=== PATIENT | female | born 1950 | race Caucasian/White ===

== ENCOUNTER 2020-11-15 11:28 | Inpatient (IN) ==
[2020-11-15] MEDS ORDERED: SODIUM CHLORIDE 0.9% 1000ML 1,000 ML IV SCH (12:00)
[2020-11-15] MEDS ORDERED: DEXAMETHASONE SOD INJ 10 MG/ML VIAL IV ONE (12:11)
[2020-11-15 12:37] LABS: Basophils # (auto) 0.01 K/uL (0-0.2); Basophils % (auto) 0.2 %; Eosinophils # (auto) 0.01 K/uL (0-0.5); Eosinophils % (auto) 0.2 %; Hematocrit (blood only) 37.8 % (37-47); Hemoglobin 13.2 g/dL (12.0-16.0); Immature Granulocytes # (auto) 0.04 K/uL (0.00-0.02); Immature Granulocytes % (auto) 0.9 %; Lymphocytes % (auto) 16.4 %; Mean Corpuscular Hemoglobin 30.1 pg (25-34); Mean Corpuscular Hgb Conc 34.9 g/dL (32-36); Mean Corpuscular Volume 86.3 fL (80-100); Mean Platelet Volume 11.4 fL (7.4-10.4); Monocytes % (auto) 4.7 %; Neutrophils # (auto) 3.31 K/uL (1.4-6.5); Neutrophils % (auto) 77.6 %; Platelet Count 181 K/uL (130-400); RDW Coefficient of Variation 13.3 % (11.5-14.5); RDW Standard Deviation 42.3 fL (36.4-46.3); Red Blood Count 4.38 M/uL (4.2-5.4); White Blood Count 4.27 K/uL (4.8-10.8)
--- NOTE | 2020-11-15 12:38 | Emergency Department Note ---
History of Present Illness General Chief complaint: Shortness of Breath/Dyspnea Stated complaint: Ref by ; believes she has COVID Time Seen by Provider: 11/15/20 11:42 History of Present Illness Provider complaint: Cough difficulty breathing Onset (ago): day(s) 2 Associated symptoms: + cough, + fever/chills, + nausea/vomiting and + shortness of breath 7-year-old female presents emergency department cough and difficulty breathing. Patient reports her symptoms began 2 days ago. She also reports diarrhea and nausea no vomiting. She reports chills and feeling feverish. She states she went to her doctor's office today who measured her oxygen level and discovered it was in the 80s and referred her to the emergency department. Known COVID-19 exposure or testing. Home Medications Medication Instructions Recorded Confirmed Type cholecalciferol (vitamin D3) 10 mcg PO DAILY 11/15/20 11/15/20 History [Vitamin D3] zinc 10 mg PO DAILY 11/15/20 11/15/20 History Allergies Allergy/AdvReac Type Severity Reaction Status Date / Time No Known Allergies Allergy Unverified 11/15/20 14:09 Past Med/Surg History Social History Smoking Status: Never smoker Feels Safe at Home: Yes Review of Systems A total of 10 systems reviewed and were otherwise negative Physical Exam Vital Signs Vital Signs - 24 hr 11/15/20 11:36 11/15/20 11:56 11/15/20 12:10 Temperature 36.6 C Temperature Source Temporal Artery Scan Pulse Rate 91 H 79 Pulse Rate [Apical] Pulse Rate from SpO2 Sensor 79 Respiratory Rate 26 H 22 Respiratory Effort / Characteristics Respiratory Depth Respiratory Pattern Blood Pressure 172/72 H 147/78 H Blood Pressure [Right Arm] Blood Pressure Mean 105 101 Blood Pressure Mean [Right Arm] Pulse Oximetry 91 86 L 97 Oxygen Delivery Method Room Air Room Air Nasal Cannula Oxygen Flow Rate 2 Sepsis Recent Fever Within 48 Hours No Sepsis New/Unexplained Change in Mental Status No Sepsis Action Taken by Nursing No Action Required 11/15/20 12:15 11/15/20 12:34 11/15/20 13:00 Temperature Temperature Source Pulse Rate 82 81 77 Pulse Rate [Apical] 79 Pulse Rate from SpO2 Sensor 80 77 Respiratory Rate 22 22 22 Respiratory Effort / Characteristics Non-Labored Spontaneous Respiratory Depth Normal Respiratory Pattern Regular Blood Pressure 147/86 H Blood Pressure [Right Arm] 147/78 H Blood Pressure Mean 106 Blood Pressure Mean [Right Arm] 101 Pulse Oximetry 95 96 93 Oxygen Delivery Method Nasal Cannula Nasal Cannula Nasal Cannula Oxygen Flow Rate 2 2 2 Sepsis Recent Fever Within 48 Hours Sepsis New/Unexplained Change in Mental Status Sepsis Action Taken by Nursing 11/15/20 13:01 11/15/20 13:30 11/15/20 14:02 Temperature Temperature Source Pulse Rate 76 75 88 Pulse Rate [Apical] Pulse Rate from SpO2 Sensor 76 75 87 Respiratory Rate 22 19 29 H Respiratory Effort / Characteristics Respiratory Depth Respiratory Pattern Blood Pressure Blood Pressure [Right Arm] Blood Pressure Mean Blood Pressure Mean [Right Arm] Pulse Oximetry 92 95 79 L Oxygen Delivery Method Nasal Cannula Nasal Cannula Room Air Oxygen Flow Rate 2 2 Sepsis Recent Fever Within 48 Hours Sepsis New/Unexplained Change in Mental Status Sepsis Action Taken by Nursing Physical Exam GENERAL: She is oriented to person, place, and time. She appears well-developed and well-nourished. She does not appear distressed. HENT: Exam performed. -Head: Normocephalic and atraumatic. -Right Ear: External ear normal. No mastoid tenderness. -Left Ear: External ear normal. No mastoid tenderness. -Mouth/Throat: The oropharynx is clear and moist. No trismus in the jaw. No dental abscesses or uvula swelling. No oropharyngeal exudate or tonsillar abscesses. EYES: Conjunctivae and EOM are normal. Pupils are equal, round, and reactive to light. Right eye exhibits no discharge. Left eye exhibits no discharge. No scleral icterus. NECK: Normal range of motion. Neck supple. No JVD present. No spinous process tenderness present. No carotid bruit present. No rigidity. No tracheal deviation and normal range of motion present. No Brudzinski's sign and no Kernig's sign noted. CV: Normal rate, regular rhythm, normal heart sounds and intact distal pulses. There is no peripheral edema. Palpable radial pulses bue. PULM/CHEST: Effort normal and breath sounds normal. No respiratory distress. No stridor. She has no wheezes. She has no rales. -Chest Wall: She exhibits no tenderness. ABD: The abdomen is soft. Bowel sounds are normal. She has no distension. No mass is present. There is no tenderness. There is no rebound, no guarding, no Moreira's sign and no tenderness at McBurney's point. Rovsig negative MUSC/SKEL: Normal range of motion. There is no peripheral edema, tenderness or deformity. LYMPH: No cervical adenopathy. NEURO: She is alert and oriented to person, place, and time. She has normal strength. No cranial nerve deficit or sensory deficit. Coordination and gait normal. GCS eye subscore is 4. GCS verbal subscore is 5. GCS motor subscore is 6. Cerebellar tests wnl. SKIN: Skin is warm and dry. She is not diaphoretic. PSYCH: She has a normal mood and affect. Behavior is normal. Judgment and thought content normal. Course Course 1142: The patient was evaluated in room C8. A complete history and physical exam was performed. Patient was seen in full airborne precautions. Patient was seen in N95's, rober ves, gowns, face shield by myself and staff. Patient was placed on cardiac cath technologist and continuous pulse ox. Patient was found to be hypoxic on 86% on room air. Patient was started on supplemental ox ygen 2 L via nasal cannula which improved her oxygen saturation. Cardiac monitoring: An order was placed for continuous cardiac monitoring. The monitor shows a rate of 80 with sinus rhythm 1436: No signs stable on supplemental continuous oxygen. Labs within normal limits with exception of potassium 3.3. Replaced in the emergency department. Imaging shows multifocal groundglass pneumonia, no PE. Patient Covid positive. Patient was given Decadron 6 mg. Patient got up to use the restroom and became extremely winded tach, tachypnea, and her pulse ox dropped, [facility]. Administered Medications Discontinued Medications Dexamethasone (Dexamethasone Sod Inj 10 Mg/Ml Vial) 6 mg IV NOW ONE Stop: 11/15/20 12:12 Last Admin: 11/15/20 12:20 Dose: 6 mg Documented by: [id number] Sodium Chloride (Nss 1000ml) 1,000 mls @ 999 mls/hr IV .Q1H1M ENA Stop: 11/15/20 13:00 Last Infusion: 11/15/20 13:25 Dose: 0 mls/hr Documented by: [id number] Admin: 11/15/20 12:20 Dose: 999 mls/hr Documented by: [id number] Ioversol (Optiray 320 125ml) 120 ml IV ONCE ONE Stop: 11/15/20 14:16 Last Admin: 11/15/20 14:16 Dose: 120 ml Documented by: [id number] Medical Decision Making Laboratory Data Result diagrams: 11/15/20 12:19 11/15/20 12:19 Lab Results 11/15/20 11/15/20 11/15/20 Range/Units 12:19 12:19 12:19 WBC 4.27 L (4.8-10.8) K/uL RBC 4.38 (4.2-5.4) M/uL Hgb 13.2 (12.0-16.0) g/dL Hct 37.8 (37-47) % MCV 86.3 (80-100) fL MCH 30.1 (25-34) pg MCHC 34.9 (32-36) g/dL RDW Std Deviation 42.3 (36.4-46.3) fL RDW Coeff of Vicenta 13.3 (11.5-14.5) % Plt Count 181 (130-400) K/uL MPV 11.4 H (7.4-10.4) fL Immature Gran % (Auto) 0.9 % Neut % (Auto) 77.6 % Lymph % (Auto) 16.4 % Wirt % (Auto) 4.7 % Eos % (Auto) 0.2 % Baso % (Auto) 0.2 % Neut # (Auto) 3.31 (1.4-6.5) K/uL Lymph # (Auto) 0.70 L (1.2-3.4) K/uL Wirt # (Auto) 0.20 (0.11-0.59) K/uL Eos # (Auto) 0.01 (0-0.5) K/uL Baso # (Auto) 0.01 (0-0.2) K/uL Immature Gran # (Auto) 0.04 H (0.00-0.02) K/uL PT 10.5 (9.0-12.0) Seconds INR 1.0 (0.9-1.1) APTT 29.4 (21.0-31.0) Seconds PTT Ratio 1.1 D-Dimer 980 H* (0-500) ug/L FEU VBG pH (7.36-7.41) VBG pCO2 (38-50) mmHg VBG pO2 mmHg VBG HCO3 mmol/L VBG O2 Saturation % VBG Base Excess mEq/L Barometric Pressure mm/Hg Sodium 139 (136-145) mmol/L Potassium 3.3 L (3.5-5.1) mmol/L Chloride 107 (98-107) mmol/L Carbon Dioxide 22 (21-32) mmol/L Anion Gap 9.0 (3-11) BUN 13 (7-18) mg/dl Creatinine 0.71 (0.6-1.2) mg/dl Est Cr Clr Drug Dosing 79.4 ml/min Est GFR ( Amer) 100.0 Est GFR (Non-Af Amer) 86.3 BUN/Creatinine Ratio 18.1 (10-20) Glucose 151 H (70-99) mg/dl Lactate (0.4-2.0) mmol/L Calcium 8.6 (8.5-10.1) mg/dl Magnesium 1.8 (1.8-2.4) mg/dl Total Bilirubin 0.7 (0.2-1) mg/dl AST 47 H (15-37) U/L ALT 69 (12-78) U/L Alkaline Phosphatase 72 (45-117) U/L Troponin I < 0.015 (0-0.045) ng/ml Total Protein 7.2 (6.4-8.2) gm/dl Albumin 3.2 L (3.4-5.0) gm/dl Globulin 4.0 (2.5-4.0) gm/dl Albumin/Globulin Ratio 0.8 L (0.9-2) Procalcitonin (0-0.5) ng/ml Urine Color Urine Appearance (Clear) Urine pH (4.5-7.5) Ur Specific [place] (1.000-1.030) Urine Protein (Negative) Urine Glucose (UA) (Negative) Urine Ketones (Negative) Urine Blood (Negative) Urine Nitrite (Negative) Urine Bilirubin (Negative) Urine Urobilinogen (Negative) Ur Leukocyte Esterase (Negative) Urine WBC (Auto) (0-5) /hpf Urine RBC (Auto) (0-4) /hpf U Hyaline Cast (Auto) (0-5) /lpf U Epithel Cells (Auto) (0-5) /lpf Urine Bacteria (Auto) (Negative) Ur Renal Epithelial Cell (0-5) /lpf COVID-19 Eval Order SARS-CoV-2 (PCR) (Negative) Influenza Type A (PCR) (Neg) Influenza Type B (PCR) (Neg) RSV (RT-PCR) (Neg) 11/15/20 11/15/20 11/15/20 Range/Units 12:19 12:19 12:19 WBC (4.8-10.8) K/uL RBC (4.2-5.4) M/uL Hgb (12.0-16.0) g/dL Hct (37-47) % MCV (80-100) fL MCH (25-34) pg MCHC (32-36) g/dL RDW Std Deviation (36.4-46.3) fL RDW Coeff of Vicenta (11.5-14.5) % Plt Count (130-400) K/uL MPV (7.4-10.4) fL Immature Gran % (Auto) % Neut % (Auto) % Lymph % (Auto) % Wirt % (Auto) % Eos % (Auto) % Baso % (Auto) % Neut # (Auto) (1.4-6.5) K/uL Lymph # (Auto) (1.2-3.4) K/uL Wirt # (Auto) (0.11-0.59) K/uL Eos # (Auto) (0-0.5) K/uL Baso # (Auto) (0-0.2) K/uL Immature Gran # (Auto) (0.00-0.02) K/uL PT (9.0-12.0) Seconds INR (0.9-1.1) APTT (21.0-31.0) Seconds PTT Ratio D-Dimer (0-500) ug/L FEU VBG pH (7.36-7.41) VBG pCO2 (38-50) mmHg VBG pO2 mmHg VBG HCO3 mmol/L VBG O2 Saturation % VBG Base Excess mEq/L Barometric Pressure mm/Hg Sodium (136-145) mmol/L Potassium (3.5-5.1) mmol/L Chloride (98-107) mmol/L Carbon Dioxide (21-32) mmol/L Anion Gap (3-11) BUN (7-18) mg/dl Creatinine (0.6-1.2) mg/dl Est Cr Clr Drug Dosing ml/min Est GFR ( Amer) Est GFR (Non-Af Amer) BUN/Creatinine Ratio (10-20) Glucose (70-99) mg/dl Lactate 1.6 (0.4-2.0) mmol/L Calcium (8.5-10.1) mg/dl Magnesium (1.8-2.4) mg/dl Total Bilirubin (0.2-1) mg/dl AST (15-37) U/L ALT (12-78) U/L Alkaline Phosphatase (45-117) U/L Troponin I (0-0.045) ng/ml Total Protein (6.4-8.2) gm/dl Albumin (3.4-5.0) gm/dl Globulin (2.5-4.0) gm/dl Albumin/Globulin Ratio (0.9-2) Procalcitonin 0.06 (0-0.5) ng/ml Urine Color Urine Appearance (Clear) Urine pH (4.5-7.5) Ur Specific [place] (1.000-1.030) Urine Protein (Negative) Urine Glucose (UA) (Negative) Urine Ketones (Negative) Urine Blood (Negative) Urine Nitrite (Negative) Urine Bilirubin (Negative) Urine Urobilinogen (Negative) Ur Leukocyte Esterase (Negative) Urine WBC (Auto) (0-5) /hpf Urine RBC (Auto) (0-4) /hpf U Hyaline Cast (Auto) (0-5) /lpf U Epithel Cells (Auto) (0-5) /lpf Urine Bacteria (Auto) (Negative) Ur Renal Epithelial Cell (0-5) /lpf COVID-19 Eval Order [facility]Rsv at [facility] SARS-CoV-2 (PCR) (Negative) Influenza Type A (PCR) (Neg) Influenza Type B (PCR) (Neg) RSV (RT-PCR) (Neg) 11/15/20 11/15/20 11/15/20 Range/Units 12:19 12:36 14:10 WBC (4.8-10.8) K/uL RBC (4.2-5.4) M/uL Hgb (12.0-16.0) g/dL Hct (37-47) % MCV (80-100) fL MCH (25-34) pg MCHC (32-36) g/dL RDW Std Deviation (36.4-46.3) fL RDW Coeff of Vicenta (11.5-14.5) % Plt Count (130-400) K/uL MPV (7.4-10.4) fL Immature Gran % (Auto) % Neut % (Auto) % Lymph % (Auto) % Wirt % (Auto) % Eos % (Auto) % Baso % (Auto) % Neut # (Auto) (1.4-6.5) K/uL Lymph # (Auto) (1.2-3.4) K/uL Wirt # (Auto) (0.11-0.59) K/uL Eos # (Auto) (0-0.5) K/uL Baso # (Auto) (0-0.2) K/uL Immature Gran # (Auto) (0.00-0.02) K/uL PT (9.0-12.0) Seconds INR (0.9-1.1) APTT (21.0-31.0) Seconds PTT Ratio D-Dimer (0-500) ug/L FEU VBG pH 7.41 (7.36-7.41) VBG pCO2 39 (38-50) mmHg VBG pO2 26 mmHg VBG HCO3 24 mmol/L VBG O2 Saturation < 60.0 % VBG Base Excess -0.4 mEq/L Barometric Pressure 731.7 mm/Hg Sodium (136-145) mmol/L Potassium (3.5-5.1) mmol/L Chloride (98-107) mmol/L Carbon Dioxide (21-32) mmol/L Anion Gap (3-11) BUN (7-18) mg/dl Creatinine (0.6-1.2) mg/dl Est Cr Clr Drug Dosing ml/min Est GFR ( Amer) Est GFR (Non-Af Amer) BUN/Creatinine Ratio (10-20) Glucose (70-99) mg/dl Lactate (0.4-2.0) mmol/L Calcium (8.5-10.1) mg/dl Magnesium (1.8-2.4) mg/dl Total Bilirubin (0.2-1) mg/dl AST (15-37) U/L ALT (12-78) U/L Alkaline Phosphatase (45-117) U/L Troponin I (0-0.045) ng/ml Total Protein (6.4-8.2) gm/dl Albumin (3.4-5.0) gm/dl Globulin (2.5-4.0) gm/dl Albumin/Globulin Ratio (0.9-2) Procalcitonin (0-0.5) ng/ml Urine Color Yellow Urine Appearance Clear (Clear) Urine pH 7.0 (4.5-7.5) Ur Specific [place] 1.023 (1.000-1.030) Urine Protein 1+ H (Negative) Urine Glucose (UA) Negative (Negative) Urine Ketones 2+ H (Negative) Urine Blood Negative (Negative) Urine Nitrite Negative (Negative) Urine Bilirubin Negative (Negative) Urine Urobilinogen Negative (Negative) Ur Leukocyte Esterase Trace H (Negative) Urine WBC (Auto) 1-5 (0-5) /hpf Urine RBC (Auto) 0-4 (0-4) /hpf U Hyaline Cast (Auto) 1-5 (0-5) /lpf U Epithel Cells (Auto) >30 H (0-5) /lpf Urine Bacteria (Auto) Negative (Negative) Ur Renal Epithelial Cell 5-10 H (0-5) /lpf COVID-19 Eval Order SARS-CoV-2 (PCR) POSITIVE A* (Negative) Influenza Type A (PCR) Negative (Neg) Influenza Type B (PCR) Negative (Neg) RSV (RT-PCR) Negative (Neg) Imaging Data Radiologist's Impression: XR chest 1V portable CLINICAL HISTORY: SEPSIS COMPARISON STUDY: No previous studies for comparison. FINDINGS: The heart is normal in size. There are bilateral pulmonary airspace opacities suspicious for a multifocal pneumonia. There are no significant pleural effusions.[ IMPRESSION: Multifocal airspace opacity suspicious for a multifocal pneumonia. Clinical and radiographic follow-up is recommended. ACT 112: Negative or not required by law. Electronically signed by: Denzel Waldron M.D. 11/15/2020 1:11 PM Dictated: 11/15/20 1310 Transcribed: 11/15/[address] ANGIOGRAM OF THE CHEST CLINICAL HISTORY: Cough and dyspnea. COMPARISON STUDY: Chest x-ray dated 11/15/2020. TECHNIQUE: Following the IV administration of 120 cc of Optiray 320, CT angiogram of the chest was performed from the upper abdomen to the thoracic inlet utilizing the pulmonary embolus protocol. Images are reviewed in the axi al, sagittal, and coronal planes. 3-D MIPS images are created and assessed. IV contrast was administered without complication. A dose lowering technique was utilized adhering to the principles of ALARA. The examination is modestly degraded by motion artifact. CT DOSE: 491.56 mGycm FINDINGS: Thyroid: Imaged portions of the thyroid gland are normal in size and attenuation. Thoracic aorta: The thoracic aorta is normal in caliber and demonstrates standard 3-vessel arch anatomy. No dissection is seen. Pulmonary vasculature: The pulmonary trunk is normal in caliber. There are no filling defects identified in main, lobar, or segmental pulmonary branches to suggest pulmonary embolus. Heart: The heart is top normal in size and without pericardial effusion. Lungs and pleural spaces: Multifocal groundglass consolidation is seen throughout both lungs. The trachea and central airways are clear. Mild peribronchial thickening is observed. No pleural effusion is identified. Mediastinum: Mildly enlarged mediastinal lymph nodes measure up to 12 mm in length. Yolette: Mildly enlarged hilar nodes measure up to 11 mm in short axis. Axillae: There is no axillary lymphadenopathy. Upper abdomen: There is a small hiatal hernia. The liver is steatotic. A 3 cm round hyperdense focus is present within the medial right lobe, best seen on image #19 of 96. Skeletal structures: The skeletal structures are osteopenic. Degenerative change is seen throughout the thoracic spine. No lytic or blastic bony lesions are seen. IMPRESSION: 1. There is no evidence of pulmonary embolus in the main, lobar, or segmental pulmonary arteries. 2. Extensive/diffuse groundglass consolidation is seen throughout both lungs. The appearance is typical for an infectious pneumonitis. Clinical correlation will be required and radiographic follow-up to resolution is recommended. 3. Mildly enlarged mediastinal and hilar lymph nodes are likely reactive. 4. Hepatic steatosis. 5. There is a 3 cm hyperdense focus identified within the medial liver adjacent to the IVC. This is nonspecific and may represent geographic fatty sparing. Follow-up with a nonemergent abdominal MRI of the liver is recommended for furth er characterization and to exclude the possibility of underlying hepatic lesion. 6. Additional findings as above. ACT 112: Negative or not required by law. Electronically signed by: Antoni Gerardo M.D. 11/15/2020 2:32 PM ECG Data Indication: + SOB/dyspnea Rate (beats per minute): 76 Rhythm: + normal sinus ECG Intervals/blocks: + Normal QRS, + Normal MT and + Normal QT-c ECG ST segments: + Normal ST segments ECG Findings: + [facility] Narrative 1142: The patient was evaluated in room C8. A complete history and physical exam was performed. Patient was seen in full airborne precautions. Patient was seen in N95's, gloves, gowns, face shield by myself and staff. Patient was placed on cardiac cath technologist and continuous pulse ox. Patient was found to be hypoxic on 86% on room air. Patient was started on supplemental oxygen 2 L via nasal cannula which improved her oxygen saturation. Cardiac monitoring: An order was placed for continuous cardiac monitoring. The monitor shows a rate of 80 with sinus rhythm 1436: No signs stable on supplemental continuous oxygen. Labs within normal limits with exception of potassium 3.3. Replaced in the emergency department. Imaging shows multifocal groundglass pneumonia, no PE. Patient Covid positive. Patient was given Decadron 6 mg. Patient got up to use the restroom and became extremely winded tach, tachypnea, and her pulse ox dropped, [facility]. Impression & Plan Hypoxia, Pneumonia due to 2019 novel coronavirus Discharge Plan Visit Data Chief Complaint: Shortness of Breath/Dyspnea Stated Complaint: Ref by ; believes she has COVID ED Provider: Karson Mack Discharge Problem: Hypoxia, Pneumonia due to 2019 novel coronavirus Patient Disposition: Admitted As Inpatient Discharge Instructions Ken/Other Patient Handouts: 2019-nCoV Forms Stand Alone Forms: My [employer] Prescriptions Prescriptions: No Action zinc 10 mg Tablet 10 mg PO DAILY RF: 0 cholecalciferol (vitamin D3) [Vitamin D3] 10 mcg (400 unit) Capsule 10 mcg PO DAILY RF: 0 Referrals Referrals: Bob Montemayor MD [Outside Practitioners] -
[2020-11-15 12:45] LABS: Base Excess VBG -0.4 mEq/L; HCO3 VBG 24 mmol/L; Oxygen Saturation VBG < 60.0 %; PCO2 VBG 39 mmHg (38-50); PO2 VBG 26 mmHg; pH VBG 7.41 (7.36-7.41)
[2020-11-15 12:51] LABS: Alanine Aminotransferase 69 U/L (12-78); Albumin Level 3.2 gm/dl (3.4-5.0); Aspartate Aminotransferase 47 U/L (15-37); BUN Creatinine Ratio 18.1 (10-20); Blood Urea Nitrogen 13 mg/dl (7-18); Calcium 8.6 mg/dl (8.5-10.1); Carbon Dioxide 22 mmol/L (21-32); Chloride 107 mmol/L (98-107); Creatinine Clr Calc Pharmacy 79.4 ml/min; Est GFR (Non-African American) 86.3; Glucose 151 mg/dl (70-99); Magnesium 1.8 mg/dl (1.8-2.4); Potassium 3.3 mmol/L (3.5-5.1); Sodium 139 mmol/L (136-145)
[2020-11-15 12:56] LABS: Albumin Globulin Ratio 0.8 (0.9-2); Alkaline Phosphatase 72 U/L (45-117); Bilirubin,Total 0.7 mg/dl (0.2-1); Total Protein 7.2 gm/dl (6.4-8.2); Troponin I < 0.015 ng/ml (0-0.045)
[2020-11-15 13:08] LABS: Partial Thromboplastin Ratio 1.1; Partial Thromboplastin Time 29.4 Seconds (21.0-31.0); Prothrombin Time 10.5 Seconds (9.0-12.0)
--- NOTE | 2020-11-15 13:12 | XRay Report ---
XR chest 1V portable CLINICAL HISTORY: SEPSIS COMPARISON STUDY: No previous studies for comparison. FINDINGS: The heart is normal in size. There are bilateral pulmonary airspace opacities suspicious fo r a multifocal pneumonia. There are no significant pleural effusions.[ IMPRESSION: Multifocal airspace opacity suspicious for a multifocal pneumonia. Clinical and radiograp hic follow-up is recommended. ACT 112: Negative or not required by law. Electronically signed by: Denzel Waldron M.D. 11/15/2020 1:11 PM
[2020-11-15 13:16] LABS: D Dimer 980 ug/L FEU (0-500)
[2020-11-15 13:55] LABS: Influenza A virus by PCR Negative (Neg); Influenza B virus by PCR Negative (Neg); RSV by PCR Negative (Neg)
[2020-11-15 14:03] LABS: SARS CoV2 RNA(COVID-19) InHosp POSITIVE (Negative)
[2020-11-15] MEDS ORDERED: OPTIRAY 320 125ml IV ONE (14:15)
[2020-11-15 14:31] LABS: Appearance Urine Clear (Clear); Bacteria Urine Automated Negative (Negative); Bilirubin Urine Negative (Negative); Blood Urine Negative (Negative); Color Urine Yellow; Epithelial Cell Urine Auto >30 /lpf (0-5); Glucose Urine UA Negative (Negative); Ketones Urine 2+ (Negative); Leukocyte Esterase Urine Trace (Negative); Nitrite Urine Negative (Negative); Protein Urine 1+ (Negative); RBC Urine Automated 0-4 /hpf (0-4); Specific Gravity Urine 1.023 (1.000-1.030); Urobilinogen Urine Negative (Negative)
--- NOTE | 2020-11-15 14:34 | CT Scan Report ---
CT ANGIOGRAM OF THE CHEST CLINICAL HISTORY: Cough and dyspnea. COMPARISON STUDY: Chest x-ray dated 11/15/2020. TECHNIQUE: Following the IV administration of 120 cc of Optiray 320, CT angiogram of the chest was pe rformed from the upper abdomen to the thoracic inlet utilizing the pulmonary embolus protocol. Images are reviewed in the axial, sagittal, and coronal planes. 3-D MIPS images are created and assessed. I V contrast was administered without complication. A dose lowering technique was utilized adhering to the principles of ALARA. The examination is modestly degraded by motion artifact. CT DOSE: 491.56 mGycm FINDINGS: Thyroid: Imaged portions of the thyroid gland are normal in size and attenuation. Thoracic aorta: The thoracic aorta is normal in caliber and demonstrates standard 3-vessel arch anato my. No dissection is seen. Pulmonary vasculature: The pulmonary trunk is normal in caliber. There are no filling defects identif ied in main, lobar, or segmental pulmonary branches to suggest pulmonary embolus. Heart: The heart is top normal in size and without pericardial effusion. Lungs and pleural spaces: Multifocal groundglass consolidation is seen throughout both lungs. The tra baylee and central airways are clear. Mild peribronchial thickening is observed. No pleural effusion is identified. Mediastinum: Mildly enlarged mediastinal lymph nodes measure up to 12 mm in length. Yolette: Mildly enlarged hilar nodes measure up to 11 mm in short axis. Axillae: There is no axillary lymphadenopathy. Upper abdomen: There is a small hiatal hernia. The liver is steatotic. A 3 cm round hyperdense focus is present within the medial right lobe, best seen on image #19 of 96. Skeletal structures: The skeletal structures are osteopenic. Degenerative change is seen throughout t he thoracic spine. No lytic or blastic bony lesions are seen. IMPRESSION: 1. There is no evidence of pulmonary embolus in the main, lobar, or segmental pulmonary arteries. 2. Extensive/diffuse groundglass consolidation is seen throughout both lungs. The appearance is typic al for an infectious pneumonitis. Clinical correlation will be required and radiographic follow-up to resolution is recommended. 3. Mildly enlarged mediastinal and hilar lymph nodes are likely reactive. 4. Hepatic steatosis. 5. There is a 3 cm hyperdense focus identified within the medial liver adjacent to the IVC. This is n onspecific and may represent geographic fatty sparing. Follow-up with a nonemergent abdominal MRI of the liver is recommended for further characterization and to exclude the possibility of underlying he patic lesion. 6. Additional findings as above. ACT 112: Negative or not required by law. Electronically signed by: Antoni Gerardo M.D. 11/15/2020 2:32 PM
[2020-11-15] MEDS ORDERED: POTASSIUM CHLORIDE CRTAB 20 MEQ TABCR PO STA (15:06)
--- NOTE | 2020-11-15 15:06 | History & Physical Report ---
Date of Service November 15, 2020 Assessment & Plan (1) Hypoxia: (2) Pneumonia due to 2019 novel coronavirus: admit to med/surg continue supplemental O2 and titrate accordingly goal O2 93% or higher IV Dexamethasone 6mg daily IV remdesivir 200mg x 1 today; then 100mg daily x 4 days pulmonary toilet with incentive spirometry, flutter valve, albuterol MDI, tessalon perle, muccinex frequent monitoring of bmp, lft SQ lovenox 40mg Q12h No evidence of secondary bacterial infection will not initiate antibiotics Convalescent plasma was discussed with patient, but given duration of symptoms does not meet criteria Patient also has questions regarding being prescribed hydroxychloroquine; ashleee nt educated on current guidelines and recommendations against use of hydroxychloroquine and treatment of Covid pneumonia (3) Hypokalemia: K 3.3 give 20meq KCL x 1 now follow (4) Hyperglycemia: BSG 151 in ED no prior hx of DM obtain a1c in a.m. monitor FBS in a.m. and a1c if elevated add accuchecks and would consult glycemic pharmacy given IV steroid use (5) Abnormal CT of liver: CTA Chest revealed abnormality on liver There is a 3 cm hyperdense focus identified within the medial liver adjacent to the IVC. This is nonspecific and may represent geographic fatty sparing. Follow- up with a nonemergent abdominal MRI of the liver is recommended for further delano acterization and to exclude the possibility of underlying hepatic lesion. Recommend follow up as outpatient CONDITIONAL CODE - CPR okay but no mechanical ventilation; CPAP and BIPAP OK Disposition: admit to med surg Follow up: Does not have PCP but saw Dr. Recinos prior to arrival; recommend schedule follow up upon discharge Pt was collaborated with Dr. Smart, please see addendum History of Present Illness Chief Complaint: Referred from clinic 2/2 to hypoxia. Primary Care Provider: Bernarda Recinos This is a 70 year old F with hx of PSVT s/p ablation who presents to ED secondary to hypoxia and referred from clinic. She was seen in [facility] clinic today 2 to worsening URI sx. Sx present for 1.5 weeks. Complains of cough, nasal congestion, rhinorrhea, chills, fatigue, loose BM and decreased appetite. Also complaint of chest pain wall. Symptoms are not improving. Chest pain worse with deep breathing. No loss of taste or smell. No known covid exposure. Over last 2 days has been experiencing increased SOB with exertion and cough mildly productive. She has tried OTC advil with mild relief. When evaluated in clinic O2 saturations were 89% and with deep inhalations increased to 93% but would decrease back to 86% with normal breathing. In ED she required 3 L of supplemental oxygen to maintain oxygen saturation. CXR and CTA chest reveal multifocal ground glass opacities concerning for COVID Pneumonia. Her SARS-COV2 was positive. No evidence of PE on imaging. Allergies Allergy/AdvReac Type Severity Reaction Status Date / Time No Known Allergies Allergy Unverified 11/15/20 14:09 Home Medications Medication Instructions Recorded Confirmed Type cholecalciferol (vitamin D3) 10 mcg PO DAILY 11/15/20 11/15/20 History [Vitamin D3] zinc 10 mg PO DAILY 11/15/20 11/15/20 History Past Med/Surg History Medical History (Updated 11/15/20 @ 15:43 by Radha Bojorquez PA-C) History of PSVT (paroxysmal supraventricular tachycardia) Surgical History (Updated 11/15/20 @ 14:59 by Radha Bojorquez PA-C) History of appendectomy History of colonoscopy with polypectomy History of radiofrequency ablation procedure for cardiac arrhythmia Family History (Updated 11/15/20 @ 15:34 by Radha Bojorquez PA-C) Sister Lung cancer Social History (Updated 11/15/20 @ 15:01 by Radha Bojorquez PA-C) Smoking Status: Never smoker Hx Alcohol Use: No Hx Substance Use: No Preferred Language: Pashto Communication Ability: Effective marital status: Current Living Situation: Spouse Feels Safe at Home: Yes Review of Systems Review of Systems: All systems reviewed & are unremarkable except as noted in HPI & below Physical Exam Physical Exam: Please refer to Dr. Smart addendum for physical exam findings. Results & Data Results & Data ([facility]) Vital Signs (Past 12 Hours) Vital Signs Temp Pulse Pulse Resp BP BP Pulse Ox 11/15/20 14:30 76 22 169/70 H 97 11/15/20 14:03 81 22 185/73 H 91 11/15/20 14:02 88 29 H 79 L 11/15/20 13:30 75 19 95 11/15/20 13:01 76 22 92 11/15/20 13:00 77 22 147/86 H 93 11/15/20 12:34 81 22 96 11/15/20 12:15 82 79 22 147/78 H 95 11/15/20 12:10 79 22 147/78 H 97 11/15/20 11:56 86 L 11/15/20 11:36 36.6 C 91 H 26 H 172/72 H 91 Diagnostic Findings Chest CTA: IMPRESSION: 1. There is no evidence of pulmonary embolus in the main, lobar, or segmental pulmonary arteries. 2. Extensive/diffuse groundglass consolidation is seen throughout both lungs. The appearance is typical for an infectious pneumonitis. Clinical correlation will be required and radiographic follow-up to resolution is recommended. 3. Mildly enlarged mediastinal and hilar lymph nodes are likely reactive. 4. Hepatic steatosis. 5. There is a 3 cm hyperdense focus identified within the medial liver adjacent to the IVC. This is nonspecific and may represent geographic fatty sparing. Follow-up with a nonemergent abdominal MRI of the liver is recommended for further characterization and to exclude the possibility of underlying hepatic lesion. 6. Additional findings as above. CXR: IMPRESSION: Multifocal airspace opacity suspicious for a multifocal pneumonia. Clinical and radiographic follow-up is recommended. Medications Administered Discontinued Medications Dexamethasone (Dexamethasone Sod Inj 10 Mg/Ml Vial) 6 mg IV NOW ONE Stop: 11/15/20 12:12 Last Admin: 11/15/20 12:20 Dose: 6 mg Documented by: [id number] Sodium Chloride (Nss 1000ml) 1,000 mls @ 999 mls/hr IV .Q1H1M ENA Stop: 11/15/20 13:00 Last Infusion: 11/15/20 13:25 Dose: 0 mls/hr Documented by: [id number] Admin: 11/15/20 12:20 Dose: 999 mls/hr Documented by: [id number] Ioversol (Optiray 320 125ml) 120 ml IV ONCE ONE Stop: 11/15/20 14:16 Last Admin: 11/15/20 14:16 Dose: 120 ml Documented by: [id number] ECG Rate (beats per minute): 76 Rhythm: normal sinus COVID-19 Results Results COVID-19 Adm Lab Results: RBC 4.38 M/uL (4.2-5.4) 11/15/20 WBC 4.27 K/uL (4.8-10.8) L 11/15/20 Hgb 13.2 g/dL (12.0-16.0) 11/15/20 Hct 37.8 % (37-47) 11/15/20 Plt Count 181 K/uL (130-400) 11/15/20 Neutrophils (%) (Auto) 77.6 % 11/15/20 Lymphocytes (%) (Auto) 16.4 % 11/15/20 Monocytes # (Auto) 0.20 K/uL (0.11-0.59) 11/15/20 Eosinophils # (Auto) 0.01 K/uL (0-0.5) 11/15/20 Immature Granulocyte % (Auto) 0.9 % 11/15/20 Neutrophils # (Auto) 3.31 K/uL (1.4-6.5) 11/15/20 Lymphocytes # (Auto) 0.70 K/uL (1.2-3.4) L 11/15/20 Monocytes # (Auto) 0.20 K/uL (0.11-0.59) 11/15/20 Eosinophils # (Auto) 0.01 K/uL (0-0.5) 11/15/20 Basophils # (Auto) 0.01 K/uL (0-0.2) 11/15/20 Immature Granulocyte # (Auto) 0.04 K/uL (0.00-0.02) H 11/15/20 Na 139 mmol/L (136-145) 11/15/20 K 3.3 mmol/L (3.5-5.1) L 11/15/20 Cl 107 mmol/L (98-107) 11/15/20 CO2 22 mmol/L (21-32) 11/15/20 Anion Gap 9.0 (3-11) 11/15/20 BUN 13 mg/dl (7-18) 11/15/20 Creatinine 0.71 mg/dl (0.6-1.2) 11/15/20 BUN/Creatinine Ratio 18.1 (10-20) 11/15/20 Glucose Level 151 mg/dl (70-99) H 11/15/20 Ca 8.6 mg/dl (8.5-10.1) 11/15/20 Total Bilirubin 0.7 mg/dl (0.2-1) 11/15/20 AST/SGOT 47 U/L (15-37) H 11/15/20 ALT/SGPT 69 U/L (12-78) 11/15/20 Alkaline Phosphatase 72 U/L (45-117) 11/15/20 Total Protein 7.2 gm/dl (6.4-8.2) 11/15/20 Albumin 3.2 gm/dl (3.4-5.0) L 11/15/20 Globulin 4.0 gm/dl (2.5-4.0) 11/15/20 Albumin/Globulin Ratio 0.8 (0.9-2) L 11/15/20 Troponin I < 0.015 ng/ml (0-0.045) 11/15/20 Procalcitonin 0.06 ng/ml (0-0.5) 11/15/20 D-Dimer 980 ug/L FEU (0-500) H* 11/15/20 PTT 29.4 Seconds (21.0-31.0) 11/15/20 INR 1.0 (0.9-1.1) 11/15/20 COVID-19 PCR POSITIVE (Negative) A* 11/15/20 Influenza Virus Type A (PCR) Negative (Neg) 11/15/20 Influenza Virus Type B (PCR) Negative (Neg) 11/15/20 Chest X-Ray 11/15/20 Code Status & VTE Plan Code Status Full Code VTE Prophylaxis Plan VTE Prophylaxis will be ordered: Yes Supervising Physician Co-Signing Physician Notes 70-year-old woman with no chronic medical problems who presents with URI symptoms for a week and a half, cough/ shortness of breath, chest pain with deep breaths for the past few days, associated with anorexia/intermittent loose stool. Patient was noted to be hypoxic on room air in the 80s at 's PCPs office and was advised to go to the ER. Denied urinary symptoms Physical exam notable for obesity, oxygen saturation of 94% on 3 L/min of nasal oxygen, blood pressure of 170/80, diminished breath sounds lower lung bases without crackles Physical exam: General: Obese woman in no obvious distress Eyes: PERRL, conjunctivae normal, not pale, anicteric sclerae, EOM intact bilaterally ENMT: External ear and nose normal, oropharynx normal, nasal cannula in situ Neck: Normal visual inspection, no tracheal deviation, no swelling noted Respiratory: Normal respiratory effort, no respiratory distress, on nasal oxygen at 3l/min (sats 94%), diminished breaths sounds lung base, no crackles and no wheezes Cardiovascular: RRR, S1 S2, no pedal edema Gastrointestinal (Abdomen): Abdomen is not distended, soft, non-tender to palpation, no guarding, no palpable hepatosplenomegaly, normal bowel sounds Musculoskeletal: No cyanosis or clubbing, all extremities motor strength 5/5 Genitourinary: No CVA tenderness Skin: No rash noted on gross inspection, No ulcers noted Neurologic: Alert and oriented x 3, No focal weakness, sensation grossly intact Psychiatric: Alert and oriented x 3, euthymic affect, no depressed affect Lab work notable for positive Covid test, potassium was 3.3, D-dimer of 980 Chest x-ray showed multifocal opacities CT angio of the chest did not show any PE but showed diffuse groundglass consolidation in both lungs, 3 cm hypodense focus in the medial left adjacent IVC. -Acute hypoxic respiratory failure secondary to COVID-19 pneumonia Discussed therapeutics with patient. Start dexamethasone and remdesivir. Monitor renal function and LFTs Will not do convalescent plasma at this time due to duration of symptoms and patient not interested in this at this time. Patient also asked about benefit of hydroxychloroquine. Discussed most recent recommendations for COVID 19 treatment with patient and results from studies for hydroxychloroquine. Continue oxygen supplementation. Incentive spirometry and flutter. Wean oxygen as tolerated. If weaned off oxygen, will need ambulatory pulse ox prior to discharge. Patient will need set up with PCP as she has not followed up with a doctor in many years. Will also need follow-up for CT findings. Patient denied any history of hypertension. Will monitor blood pressure for now and if elevated consistently may need to start pharmacological management Replete potassium Discussed code status - She would want cardiac resuscitation and NIV but no invasive ventilation. Other plans as detailed above
[2020-11-15] MEDS ORDERED: MAGNESIUM HYDROXIDE SUSP 30 ML UDC PO PRN (16:28)
[2020-11-15] MEDS ORDERED: POLYETHYLENE (MIRALAX) 17 GM PACK PO PRN (16:28)
[2020-11-15] MEDS ORDERED: ALUMINUM/MAGNESIUM SUSP 30 ML UDC PO PRN (16:28)
[2020-11-15] MEDS ORDERED: ONDANSETRON INJ 2 MG/ML 2 ML VIAL IV PRN (16:28)
[2020-11-15] MEDS ORDERED: REMDESIVIR 200 MG in SODIUM CHLORIDE 0.9% 210 ML IV ONE (16:45)
[2020-11-15] MEDS: ALBUTEROL HFA 8 GM INHALER INH SCH (19:51)
[2020-11-15] MEDS: SODIUM CHLORIDE 0.9% 10ML FLUSH IV SCH (20:20)
[2020-11-15] MEDS: BENZONATATE 100 MG CAPSULE PO SCH (20:20)
[2020-11-15] MEDS: ENOXAPARIN INJ 40 MG/0.4 ML SYR SQ SCH (21:28)
--- NOTE | 2020-11-16 05:54 | Electrocardiogram Report ---
Test Reason : Blood Pressure : / mmHG Vent. Rate : 076 BPM Atrial Rate : 076 BPM P-R Int : 146 ms QRS Dur : 090 ms QT Int : 384 ms P-R-T Axes : 026 -10 019 degrees QTc Int : 432 ms Normal sinus rhythm Possible Left atrial enlargement Left ventricular hypertrophy Nonspecific ST and T wave abnormality Abnormal ECG No previous ECGs available Confirmed by Shahram Gambino ([id number]) on 11/16/2020 5:54:25 AM Referred By: Confirmed By:Shahram Gambino
[2020-11-16] MEDS: ALBUTEROL HFA 8 GM INHALER INH SCH ×2 (07:09→11:18)
[2020-11-16 07:17] LABS: Basophils # (auto) 0.01 K/uL (0-0.2); Basophils % (auto) 0.2 %; Hematocrit (blood only) 36.6 % (37-47); Hemoglobin 12.6 g/dL (12.0-16.0); Immature Granulocytes # (auto) 0.08 K/uL (0.00-0.02); Immature Granulocytes % (auto) 1.5 %; Lymphocytes # (auto) 1.08 K/uL (1.2-3.4); Lymphocytes % (auto) 20.2 %; Mean Corpuscular Hgb Conc 34.4 g/dL (32-36); Mean Corpuscular Volume 87.1 fL (80-100); Mean Platelet Volume 11.4 fL (7.4-10.4); Monocytes # (auto) 0.29 K/uL (0.11-0.59); Monocytes % (auto) 5.4 %; Neutrophils # (auto) 3.88 K/uL (1.4-6.5); Neutrophils % (auto) 72.7 %; Platelet Count 213 K/uL (130-400); RDW Coefficient of Variation 13.3 % (11.5-14.5); RDW Standard Deviation 42.6 fL (36.4-46.3); White Blood Count 5.34 K/uL (4.8-10.8)
[2020-11-16] MEDS: ACETAMINOPHEN 325 MG TAB PO PRN (07:37)
[2020-11-16] MEDS: CHOLECALCIFEROL 400 UNITS 10 MCG TAB PO SCH (07:37)
[2020-11-16] MEDS: ENOXAPARIN INJ 40 MG/0.4 ML SYR SQ SCH ×2 (07:38→21:00)
[2020-11-16] MEDS: dexAMETHasone 6 MG in SYRINGE 0 ML IV SCH (07:38)
[2020-11-16] MEDS: BENZONATATE 100 MG CAPSULE PO SCH ×3 (07:38→21:00)
[2020-11-16 07:40] LABS: Albumin Level 2.9 gm/dl (3.4-5.0); BUN Creatinine Ratio 17.5 (10-20); Calcium 8.1 mg/dl (8.5-10.1); Creatinine Clr Calc Pharmacy 77.4 ml/min; Est GFR (African American) 96.7; Est GFR (Non-African American) 83.4; Magnesium 2.2 mg/dl (1.8-2.4); Potassium 3.4 mmol/L (3.5-5.1)
[2020-11-16 07:43] LABS: Albumin Globulin Ratio 0.7 (0.9-2); Bilirubin,Total 0.5 mg/dl (0.2-1); Globulin 4.1 gm/dl (2.5-4.0)
[2020-11-16 07:51] LABS: Estimated Average Glucose 169 mg/dl; Hemoglobin A1C 7.5 % (4.5-5.6)
[2020-11-16] MEDS ORDERED: NON-FORMULARY MEDICATION (Zinc 10 mg Tablet) PO SCH (09:00)
[2020-11-16] MEDS: ZINC SULFATE 220 MG CAPSULE PO SCH (10:54)
[2020-11-16] MEDS: SODIUM CHLORIDE 0.9% 10ML FLUSH IV SCH (12:02)
[2020-11-16] MEDS: REMDESIVIR 100 MG in SODIUM CHLORIDE 0.9% 230 ML IV SCH (12:02)
[2020-11-16] MEDS ORDERED: ALBUTEROL HFA 8 GM INHALER INH PRN (14:36)
--- NOTE | 2020-11-16 20:31 | Hospitalist Progress Note ---
Date of Service November 16, 2020 Assessment & Plan (1) Hypoxia: (2) Pneumonia due to 2019 novel coronavirus: continue supplemental O2 and titrate accordingly goal O2 93% or higher IV Dexamethasone 6mg daily IV remdesivir 200mg x 1 on admission; then 100mg daily x 4 days Respiratory status has remained stable, no worsening of hypoxia no cough no fever Patient asked to use incentive spirometry, increase activity/ambulation as tolerated SQ lovenox 40mg Q12h No evidence of secondary bacterial infection will not initiate antibiotics (3) Hypokalemia: Replaced Patient does not have any nausea vomiting or diarrhea (4) Hyperglycemia: Hemoglobin A1c 7.5, suggesting new diagnosis of type 2 diabetes. Appreciate input from natural resources extension educator. Patient given information, regarding diet and exercise, life style modification Patient wants to do the trial with diet change and exercise, not interested to start him on antidiabetic medications yet, Patient will be followed up with her family physician and A1c check in 3 months, Diabetic meds can be initiated if hemoglobin A1c remains elevated in spite of lifestyle modification, (5) Abnormal CT of liver: There is a 3 cm hyperdense focus identified within the medial liver adjacent to the IVC. This is nonspecific and may represent geographic fatty sparing. Follow- up with a nonemergent abdominal MRI of the liver is recommended for further characterization and to exclude the possibility of underlying hepatic lesion. Recommend follow up as outpatient Send information to family physician for outpatient nonemergent MRI of abdomen and liver to be done CONDITIONAL CODE - CPR okay but no mechanical ventilation; CPAP and BIPAP OK Disposition: Patient will be discharged home when medically stable Admission and Anticipated Discharge Date Admission Date: November 15, 2020 Subjective Follow-up visit for hypoxia/COVID-19 pneumonia: Patient reports of feeling better, was on 1 L oxygen via nasal cannula throughout the day, this afternoon started to have more shortness of breath, has dry nonproductive cough Currently on 2 L oxygen, patient was not on home O2 prior to admission Does not have any fever or chills, no body ache, no GI or symptoms Review of Systems Review of Systems: All systems reviewed & are unremarkable except as noted in HPI & below Constitutional: no fever, no chills and no fatigue Ear, Nose, Mouth, Throat: no nasal congestion and no nasal discharge Respiratory: no cough, no dyspnea, no dyspnea on exertion and no wheezing Cardiovascular: no chest pain and no palpitations Gastrointestinal: no abdominal pain, no nausea, no vomiting and no diarrhea/loose stools Physical Exam Constitutional: WD/WN, vitals as above Eyes: PERRL, conjunctivae normal, anicteric sclerae ENMT: external ear and nose normal, oropharynx normal Neck: trachea midline, no thyromegaly Respiratory: normal respiratory effort, lungs clear to auscultation Cardiovascular: RRR, no murmur, no edema Gastrointestinal (Abdomen): normal bowel sounds, soft, nontender, no hepatosplenomegaly Musculoskeletal: no cyanosis or clubbing, extremities motor strength 5/5 Skin: no rashes, warm and dry Neurologic: PERRL, EOMI, accommodation nl, no face palsy, no dysarthria Psychiatric: A+Ox3, euthymic affect Results & Data Results & Data ([facility]) Vital Signs (Past 12 Hours) Vital Signs Temp Pulse Resp BP Pulse Ox 11/16/20 16:00 91 11/16/20 15:24 36.6 C 66 16 136/74 91 11/16/20 14:13 91 11/16/20 11:21 75 18 90
[2020-11-17 07:45] LABS: Creatinine Clr Calc Pharmacy 75.3 ml/min; Est GFR (African American) 93.6; Est GFR (Non-African American) 80.8
[2020-11-17] MEDS: ENOXAPARIN INJ 40 MG/0.4 ML SYR SQ SCH ×2 (08:04→20:24)
[2020-11-17] MEDS: dexAMETHasone 6 MG in SYRINGE 0 ML IV SCH (08:04)
[2020-11-17] MEDS: BENZONATATE 100 MG CAPSULE PO SCH ×3 (08:05→20:24)
[2020-11-17] MEDS: ZINC SULFATE 220 MG CAPSULE PO SCH (08:05)
[2020-11-17] MEDS: CHOLECALCIFEROL 400 UNITS 10 MCG TAB PO SCH (08:05)
[2020-11-17] MEDS: REMDESIVIR 100 MG in SODIUM CHLORIDE 0.9% 230 ML IV SCH (11:18)
[2020-11-17] MEDS: SODIUM CHLORIDE 0.9% 10ML FLUSH IV SCH (12:30)
--- NOTE | 2020-11-17 17:35 | Hospitalist Progress Note ---
Date of Service November 17, 2020 Assessment & Plan (1) Hypoxia: (2) Pneumonia due to 2019 novel coronavirus: continue supplemental O2 and titrate accordingly goal O2 93% or higher IV Dexamethasone 6mg daily IV remdesivir day # 3 ( total 5 days tx ) Clinic continues to improve , in room air , no hypoxia no cough no fever Patient asked to use incentive spirometry, increase activity/ambulation as tolerated SQ lovenox 40mg Q12h No evidence of secondary bacterial infection will not initiate antibiotics (3) Hypokalemia: Replaced Patient does not have any nausea vomiting or diarrhea (4) Hyperglycemia: Hemoglobin A1c 7.5, suggesting new diagnosis of type 2 diabetes. Appreciate input from assistant health educator. Patient given information, regarding diet and exercise, life style modification Patient wants to do the trial with diet change and exercise, not interested to start him on antidiabetic medications yet, Patient will be followed up with her family physician and A1c check in 3 months, Diabetic meds can be initiated if hemoglobin A1c remains elevated in spite of lifestyle modification, (5) Abnormal CT of liver: There is a 3 cm hyperdense focus identified within the medial liver adjacent to the IVC. This is nonspecific and may represent geographic fatty sparing. Follow- up with a nonemergent abdominal MRI of the liver is recommended for further characterization and to exclude the possibility of underlying hepatic lesion. Recommend follow up as outpatient Send information to family physician for outpatient nonemergent MRI of abdomen and liver to be done CONDITIONAL CODE - CPR okay but no mechanical ventilation; CPAP and BIPAP OK Disposition: Patient will be discharged home in next 1-2 days when medically stable Admission and Anticipated Discharge Date Admission Date: November 15, 2020 Subjective Follow-up visit for hypoxia/COVID-19 pneumonia: hypoxia has resolved, remains in room air no complain of SOB , or REYES , no chest pain Does not have any fever or chills, no body ache, no GI or symptoms Physical Exam Constitutional: WD/WN, vitals as above Eyes: PERRL, conjunctivae normal, anicteric sclerae ENMT: external ear and nose normal, oropharynx normal Neck: trachea midline, no thyromegaly Respiratory: normal respiratory effort, lungs clear to auscultation Cardiovascular: RRR, no murmur, no edema Gastrointestinal (Abdomen): normal bowel sounds, soft, nontender, no hepatosplenomegaly Musculoskeletal: no cyanosis or clubbing, extremities motor strength 5/5 Skin: no rashes, warm and dry Neurologic: PERRL, EOMI, accommodation nl, no face palsy, no dysarthria Psychiatric: A+Ox3, euthymic affect Results & Data Results & Data ([facility]) Vital Signs (Past 12 Hours) Vital Signs Temp Pulse Resp BP Pulse Ox Pulse Ox 11/17/20 14:41 36.9 C 68 20 143/82 H 92 11/17/20 12:00 93 11/17/20 06:26 37.1 C 55 L 18 135/76 93
[2020-11-17] MEDS ORDERED: BENZONATATE 100 MG CAPSULE PO PRN (22:35)
[2020-11-18 07:04] LABS: Creatinine Clr Calc Pharmacy 83.1 ml/min; Est GFR (African American) 102.7; Est GFR (Non-African American) 88.6
[2020-11-18] MEDS: guaiFENesin 600 MG TABCR PO PRN (09:20)
[2020-11-18] MEDS: ENOXAPARIN INJ 40 MG/0.4 ML SYR SQ SCH ×2 (09:21→23:07)
[2020-11-18] MEDS: CHOLECALCIFEROL 400 UNITS 10 MCG TAB PO SCH (09:21)
[2020-11-18] MEDS: ZINC SULFATE 220 MG CAPSULE PO SCH (09:21)
[2020-11-18] MEDS: REMDESIVIR 100 MG in SODIUM CHLORIDE 0.9% 230 ML IV SCH (11:19)
[2020-11-18] MEDS: SODIUM CHLORIDE 0.9% 10ML FLUSH IV SCH (12:22)
--- NOTE | 2020-11-18 17:51 | Hospitalist Progress Note ---
Date of Service November 18, 2020 Assessment & Plan (1) Hypoxia: (2) Pneumonia due to 2019 novel coronavirus: continue supplemental O2 and titrate accordingly goal O2 93% or higher IV Dexamethasone 6mg daily IV remdesivir day # 4 ( total 5 days tx ) clinically recovered , no hypoxia , not requiring 02 no cough no fever plan to dc home tomorrow after completion of Remdesivir 2 step exercise in am to asses home 02 needs SQ lovenox 40mg Q12h No evidence of secondary bacterial infection -no antibiotic tx was needed . (3) Hypokalemia: Replaced Patient does not have any nausea vomiting or diarrhea (4) Hyperglycemia: Hemoglobin A1c 7.5, suggesting new diagnosis of type 2 diabetes. Appreciate input from chemical educator. Patient given information, regarding diet and exercise, life style modification Patient wants to do the trial with diet change and exercise, not interested to start him on antidiabetic medications yet, Patient will be followed up with her family physician and A1c check in 3 months, Diabetic meds can be initiated if hemoglobin A1c remains elevated in spite of lifestyle modification, (5) Abnormal CT of liver: There is a 3 cm hyperdense focus identified within the medial liver adjacent to the IVC. This is nonspecific and may represent geographic fatty sparing. Follow- up with a nonemergent abdominal MRI of the liver is recommended for further characterization and to exclude the possibility of underlying hepatic lesion. Recommend follow up as outpatient Send information to family physician for outpatient nonemergent MRI of abdomen and liver to be done CONDITIONAL CODE - CPR okay but no mechanical ventilation; CPAP and BIPAP OK Disposition: Patient will be discharged home tomorrow 11/19/20 Admission and Anticipated Discharge Date Admission Date: November 15, 2020 Subjective Follow-up visit for hypoxia/COVID-19 pneumonia: feels fine cough has resolved, no complain of SOB , no fever or chills have not required any supplemental 02 whole day walking independently , without any symptoms Physical Exam Constitutional: WD/WN, vitals as above Eyes: PERRL, conjunctivae normal, anicteric sclerae ENMT: external ear and nose normal, oropharynx normal Neck: trachea midline, no thyromegaly Respiratory: normal respiratory effort, lungs clear to auscultation Cardiovascular: RRR, no murmur, no edema Gastrointestinal (Abdomen): normal bowel sounds, soft, nontender, no hepatosplenomegaly Musculoskeletal: no cyanosis or clubbing, extremities motor strength 5/5 Skin: no rashes, warm and dry Neurologic: PERRL, EOMI, accommodation nl, no face palsy, no dysarthria Psychiatric: A+Ox3, euthymic affect Results & Data Results & Data ([facility]) Vital Signs (Past 12 Hours) Vital Signs Temp Pulse Resp BP Pulse Ox 11/18/20 16:48 37.2 C 59 L 17 152/72 H 94 11/18/20 07:12 36.7 C 60 18 136/72 92
[2020-11-18] MEDS: ACETAMINOPHEN 325 MG TAB PO PRN (19:34)
[2020-11-19 06:57] LABS: Est GFR (African American) 78.2; Est GFR (Non-African American) 67.5
[2020-11-19] MEDS: guaiFENesin 600 MG TABCR PO PRN (08:14)
[2020-11-19] MEDS: CHOLECALCIFEROL 400 UNITS 10 MCG TAB PO SCH (08:15)
[2020-11-19] MEDS: ZINC SULFATE 220 MG CAPSULE PO SCH (08:15)
[2020-11-19] MEDS: ENOXAPARIN INJ 40 MG/0.4 ML SYR SQ SCH (09:02)
[2020-11-19] MEDS: REMDESIVIR 100 MG in SODIUM CHLORIDE 0.9% 230 ML IV SCH (11:12)
[2020-11-19] MEDS: SODIUM CHLORIDE 0.9% 10ML FLUSH IV SCH (12:48)
--- NOTE | 2020-11-19 13:24 | Discharge Summary ---
Date of Service November 19, 2020 Admission HPI Per Admitting Provider This is a 70 year old F with hx of PSVT s/p ablation who presents to ED secondary to hypoxia and referred from clinic. She was seen in [facility] clinic today 2/ to worsening URI sx. Sx present for 1.5 weeks. Complains of cough, nasal congestion, rhinorrhea, chills, fatigue, loose BM and decreased appetite. Also complaint of chest pain wall. Symptoms are not improving. Chest pain worse with deep breathing. No loss of taste or smell. No known covid exposure. Over last 2 days has been experiencing increased SOB with exertion and cough mildly productive. She has tried OTC advil with mild relief. When evaluated in clinic O2 saturations were 89% and with deep inhalations increased to 93% but would decrease back to 86% with normal breathing. In ED she required 3 L of supplemental oxygen to maintain oxygen saturation. CXR and CTA chest reveal multifocal ground glass opacities concerning for COVID Pneumonia. Her SARS-COV2 was positive. No evidence of PE on imaging. Principal Diagnosis COVID 19 PNEUMONIA TYPE 2 DIABETES Discharge Exam Constitutional WD/WN, vitals as above Eyes PERRL, conjunctivae normal, anicteric sclerae ENMT external ear and nose normal, oropharynx normal Neck trachea midline, no thyromegaly Respiratory normal respiratory effort, lungs clear to auscultation Cardiovascular RRR, no murmur, no edema Gastrointestinal (Abdomen) normal bowel sounds, soft, nontender, no hepatosplenomegaly Musculoskeletal no cyanosis or clubbing, extremities motor strength 5/5 Skin no rashes, warm and dry Neurologic PERRL, EOMI, accommodation nl, no face palsy, no dysarthria Psychiatric A+Ox3, euthymic affect Discharge Data Allergies Allergy/AdvReac Type Severity Reaction Status Date / Time No Known Allergies Allergy Unverified 11/15/20 14:09 Consultations 11/15/20 14:36 ED Decision to Admit Stat Ordered Studies 11/15/20 13:16 CT angio chest PE protocol Stat Diabetes Follow up Diabetes Follow-up Needed for Newly Diagnosed Diabetes Hospital Course (1) Hypoxia: (2) Pneumonia due to 2019 novel coronavirus: Respiratory status improved, no hypoxia Has not been requiring any supplemental oxygen for more than 48 hours, IV dexamethasone discontinued as patient had resolution of hypoxia no wheeze no cough no dyspnea on exertion. Completed 5 days of IV remdesivir No cough, no fever, no shortness of breath Two-step exercise shows no desaturation at rest or activity Patient is stable to be discharged home today (3) Hypokalemia: Replaced (4) Hyperglycemia: Hemoglobin A1c 7.5, suggesting new diagnosis of type 2 diabetes. Appreciate input from paraeducator. Patient given information, regarding diet and exercise, life style modification Patient wants to do the trial with diet change and exercise, not interested to start him on antidiabetic medications yet, Patient will be followed up with her family physician and A1c check in 3 months, Diabetic meds can be initiated if hemoglobin A1c remains elevated in spite of lifestyle modification, Plan of care discussed with patient, and agreeable with above (5) Abnormal CT of liver: There is a 3 cm hyperdense focus identified within the medial liver adjacent to the IVC. This is nonspecific and may represent geographic fatty sparing. Follow- up with a nonemergent abdominal MRI of the liver is recommended for further characterization and to exclude the possibility of underlying hepatic lesion. Recommend follow up as outpatient Patient will have nonemergent outpatient MRI of abdomen, patient's family physician will schedule for the scan DVT prophylaxis, subcu Lovenox while in hospital Disposition: Patient is discharged home today in stable condition Information's for COVID-19 isolation precaution as per CDC guideline included in the discharge instruction Total Time Total Time Spent Total Time Spent (In Minutes): 30 mins Total Time Includes: Discharge Planning and Medication Reconciliation Discharge Plan Discharge Items Patient Disposition: Home - Self-Care Reason For Visit: COVID PNA Discharge Diagnosis: COVID 19 PNEUMONIA TYPE 2 DIABETES Activity: As commented below Activity Comment: TOLERATED Non-emergency contact: Primary Care Provider Call non-emergency contact if: you have any medication questions Follow-up/Referrals: Jaren Recinos MD [Primary Care Provider] - Diet: Regular Addtl Attending Provider Instructions: Home Isolation COVID-19 Instructions The following information about Home Isolation is from the CDC Website: https://www.cdc.gov/coronavirus/2019-ncov/hcp/aesdsilf-urtcacj-phujxo.html Stay home except to get medical care People who are mildly ill with COVID-19 are able to isolate at home during their illness. You should restrict activities outside your home, except for getting medical care. Do not go to work, school, or public areas. Avoid using public transportation, ride-sharing, or taxis. Separate yourself from other people and animals in your home People: As much as possible, you should stay in a specific room and away from other people in your home. Also, you should use a separate bathroom, if available. Animals: You should restrict contact with pets and other animals while you are sick with COVID-19, just like you would around other people. Although there have not been reports of pets or other animals becoming sick with COVID-19, it is still recommended that people sick with COVID-19 limit contact with animals until more information is known about the virus. When possible, have another member of your household care for your animals while you are sick. If you are sick with COVID-19, avoid contact with your pet, including petting, snuggling, being kissed or licked, and sharing food. If you must care for your pet or be around animals while you are sick, wash your hands before and after you interact with pets and wear a face mask. Call ahead before visiting your doctor If you have a medical appointment, call the healthcare provider and tell them that you have or may have COVID-19. This will help the healthcare providers office take steps to keep other people from getting infected or exposed. Wear a face mask You should wear a face mask when you are around other people (e.g., sharing a room or vehicle) or pets and before you enter a healthcare providers office. If you are not able to wear a face mask (for example, because it causes trouble breathing), then people who live with you should not stay in the same room with you, or they should wear a face mask if they enter your room. Cover your coughs and sneezes Cover your mouth and nose with a tissue when you cough or sneeze. Throw used tissues in a lined trash can. Immediately wash your hands with soap and water for at least 20 seconds or, if soap and water are not available, clean your hand s with an alcohol-based hand store clerk that contains at least 60% alcohol. Clean your hands often Wash your hands often with soap and water for at least 20 seconds, especially after blowing your nose, coughing, or sneezing; going to the bathroom; and before eating or preparing food. If soap and water are not readily available, use an alcohol-based hand store clerk with at least 60% alcohol, covering all surfaces of your hands and rubbing them together until they feel dry. Soap and water are the best option if hands are visibly dirty. Avoid touching your eyes, nose, and mouth with unwashed hands. Avoid sharing personal household items You should not share dishes, drinking glasses, cups, eating utensils, towels, or bedding with other people or pets in your home. After using these items, they should be washed thoroughly with soap and water. Clean all high-touch surfaces everyday High touch surfaces include counters, tabletops, doorknobs, bathroom fixtures, toilets, phones, keyboards, tablets, and bedside tables. Also, clean any surfaces that may have blood, stool, or body fluids on them. Use a household cleaning spray or wipe, according to the label instructions. Labels contain instructions for safe and effective use of the cleaning product including precautions you should take when applying the product, such as wearing gloves and making sure you have good ventilation during use of the product. Monitor your symptoms Seek prompt medical attention if your illness is worsening (e.g., difficulty breathing).Beforeseeking care, call your healthcare provider and tell them that you have, or are being evaluated for, COVID-19. Put on a face mask before y ou enter the facility. These steps will help the healthcare providers office to keep other people in the office or waiting room from getting infected or exposed. Ask your healthcare provider to call the local or state health department. Persons who are placed under active monitoring or facilitated self- monitoring should follow instructions provided by their local health department or occupational health professionals, as appropriate. When working with your local health department check their available hours. If you have a medical emergency and need to call 911, notify the dispatch personnel that you have, or are being evaluated for COVID-19. If possible, put on a face mask before emergency medical services arrive. Discontinuing home isolation Patients with confirmed COVID-19 should remain under home isolation precautions until the risk of secondary transmission to others is thought to be low. PER CURRENT CDC GUIDELINE -STRICT HOME ISOLATION CAN BE DISCONTINUED 10 DAYS AFTER ONSET OF SYMPTOMS OR POSITIVE TEST RESULT -WHICH EVER IS EARLIER NEED TO BE FEVER FREE FOR 24 HRS WITH OUT ANY FEVER REDUCING MEDS ( TYLENOL, MOTRIN ) BEFORE DISCONTINUING HOME ISOLATION /QUARENTINE YOU STILL WILL NEED TO PRACTICE SOCIAL DISTANCING ( 6 FEET APART ) , WEAR MASK WHEN AROUND PEOPLE WASH YOUR HANDS WITH SOAPS AND WATER . Wash your hands often with soap and water for at least 20 seconds, especially after blowing your nose, coughing, or sneezing; going to the bathroom; and before eating or preparing food. If soap and water are not readily available, use an alcohol-based hand store clerk with at least 60% alcohol, covering all surfaces of your hands and rubbing them together until they feel dry. Soap and water are the best option if hands are visibly dirty. Avoid touching your eyes, nose, and mouth with unwashed hands. Addtl Copping Machine Operator Provider Instructions: Hemoglobin A1c 7.5, suggesting new diagnosis of type 2 diabetes. followed up with with family physician and A1c check in 3 months, please follow diet and exercise regimen to keep you blood sugar good control you are given leaflets for diabetic diet and lifestyle modification, MRI OF LIVER NEED TO BE SCHEDULE OUT PATIENT There is a 3 cm nodule /hyperdense lesion in the liver noted in CT scan . Follow-up with a abdominal MRI of the liver is recommended you family physician will schedule the liver MRI scan Pending Studies at Discharge: No Stand-Alone Forms: My [employer], Smoking Cessation Medications and DC Order Prescriptions: Continued zinc 10 mg Tablet 10 mg PO DAILY RF: 0 cholecalciferol (vitamin D3) [Vitamin D3] 10 mcg (400 unit) Capsule 10 mcg PO DAILY RF: 0 Discharge Orders: Discharge Order (Routine); Ordered 11/19/20 Ordered By: Yue Rogers/Other Patient Handouts: Managing Type 2 Diabetes, Healthy Meals for Diabetes, Understanding Carbohydrates, Eating Out When You Have Diabetes, Exercise to Manage Your Blood Sugar, 5 Steps for Eating Healthier, Diabetes Learn Serve Portion Size, Diabetes: Meal Planning, Diabetes Carbs Fats Protein, Understanding Type 2 Diabetes, A1C Admission Data Admit Date/Time: 11/15/20 14:55 Attending Provider: Yue Li Admit Provider: Katelynn Smart I. Primary Care Provider: Jaren Recinos Other Providers: Katelynn Smart I. Other Interventions: Discharge Summary Assessment (RN) Last Done: 11/19/20 13:22
== END 2020-11-19 13:47 | disposition home or self-care (01) | DRG 177 ==
LOC: ED 11:28 → SUATTDRO 14:55 → 3E 14:55

== ENCOUNTER 2023-06-04 13:36 | Inpatient (IN) ==
--- NOTE | 2023-06-04 15:15 | CT Scan Report ---
CT SCAN OF THE BRAIN WITHOUT IV CONTRAST CLINICAL HISTORY: Change in mental status. Generalized weakness. COMPARISON STUDY: No priors. TECHNIQUE: Unenhanced axial CT scan of the brain is performed from the vertex to the skull base. A do se lowering technique was utilized adhering to the principles of ALARA. FINDINGS: Brain parenchyma: There is age-related involutional change noting mild subcortical and periventricula r microangiopathic disease. There is no hemorrhage, mass effect, or evidence of acute territorial isc hemia by CT criteria. Marie-white matter differentiation is preserved. No extra-axial fluid collection is seen. Ventricles, sulci, cisterns: Prominent secondary to involutional change. Intracranial vasculature: There is atherosclerotic calcification of the cavernous carotid arteries. Calvarium: Unremarkable. Sinuses and mastoids: The visualized paranasal sinuses are clear. The mastoid air cells are well pneu matized. Orbits: The bony orbits are grossly intact. IMPRESSION: There is no hemorrhage, mass effect, or evidence of acute territorial ischemia by CT andrea ponce. ACT 112: Negative or not required by law. Electronically signed by: Antoni Gerardo M.D. 06/04/2023 3:14 PM
[2023-06-04 15:21] LABS: Basophils # (auto) 0.02 K/uL (0-0.2); Basophils % (auto) 0.4 %; Eosinophils # (auto) 0.02 K/uL (0-0.50); Eosinophils % (auto) 0.4 %; Hematocrit (blood only) 42.6 % (37.0-47.0); Immature Granulocytes # (auto) 0.03 K/uL (0.01-0.20); Immature Granulocytes % (auto) 0.5 %; Lymphocytes % (auto) 16.4 %; Mean Corpuscular Hemoglobin 29.2 pg (25.0-34.0); Mean Corpuscular Hgb Conc 32.9 g/dL (32.0-36.0); Mean Corpuscular Volume 88.9 fL (80.0-100.0); Mean Platelet Volume 11.6 fL (9.4-12.4); Monocytes # (auto) 0.48 K/uL (0.11-0.59); Monocytes % (auto) 8.8 %; Neutrophils # (auto) 4.03 K/uL (1.40-6.50); Neutrophils % (auto) 73.5 %; Platelet Count 149 K/uL (130-400); RDW Coefficient of Variation 16.5 % (11.5-14.5); Red Blood Count 4.79 M/uL (4.20-5.40); White Blood Count 5.48 K/ul (4.8-10.8)
[2023-06-04 15:28] LABS: Albumin Globulin Ratio 1.1 (0.9-2); Albumin Level 3.3 gm/dl (3.4-5.0); BUN Creatinine Ratio 41.5 (10-20); Calcium 12.2 mg/dl (8.6-10.3); Creatinine Clr Calc Pharmacy 46.7 ml/min; Est GFR (African American) 70.2 ml/min; Est GFR (Non-African American) 60.6 ml/min; Magnesium 2.2 mg/dl (1.7-2.4); Potassium 4.8 mmol/L (3.5-5.1); Total Protein 6.3 gm/dl (6.0-8.3); Troponin I High Sensitivity 16.6 pg/ml (0-14)
--- NOTE | 2023-06-04 15:28 | CT Scan Report ---
CT abd pelvis wo con CLINICAL HISTORY: confusion, abd pain TECHNIQUE: Helical axial images of the abdomen and pelvis were obtained. Automated dose lowering tech niques and/or adjustment according to patient size were utilized for this exam. This exam was perfor med without intravenous contrast. CT DOSE: 1298.72 mGy.cm COMPARISON: Comparison is made to CT abdomen pelvis 12/19/2022 FINDINGS: Lower chest: Bibasilar atelectasis versus scarring is seen. Partial visualization of right cardiophr enic nodes. Liver: Extensive hepatic hypodensity measures 20.1 x 17.8 cm,, previously 18.7 x 14.7 cm. Gallbladder and biliary tree: No calcified gallstones. Normal caliber wall. No intra- or extrahepatic biliary ductal dilation. Pancreas: Unremarkable, no focal lesions. Spleen: Splenomegaly is seen with a craniocaudal of 20.3 cm. Adrenals: Unremarkable. Kidneys and ureters: Nonobstructive nephrolithiasis is seen. Bladder: Unremarkable. Reproductive organs: Unremarkable. Bowel: Unremarkable. Lymph nodes Retroperitoneal: Unremarkable. Pelvic: Unremarkable. Mesenteric: Unremarkable. Peritoneum: Moderate ascites is seen. Vessels: Atherosclerotic calcifications are seen. Esophageal varices are noted. Abdominal wall: Unremarkable. Bones: Degenerative changes in the visualized spine. IMPRESSION: 1. Interval worsening of liver lesion. Moderate ascites and splenomegaly. A few esophageal varices a re seen. 2. Redemonstration of cardiophrenic nodes which are nonspecific but may represent metastases. ACT 112: Negative or not required by law. Electronically signed by: Andre Rowland M.D. 06/04/2023 3:26 PM
[2023-06-04 15:29] LABS: Albumin Peritoneal Fluid < 1.5 gm/dl
--- NOTE | 2023-06-04 15:31 | XRay Report ---
XR chest 1V portable HISTORY: weakness COMPARISON: Chest 12/19/2022. FINDINGS: No pneumothorax. No pleural effusions. The cardiac silhouette is normal in size. No evidenc e for pulmonary edema. Mild elevation of the right hemidiaphragm, unchanged. Right basilar linear den sities have improved. This favors resolving atelectasis. No new focal lung consolidations to suggest a pneumonia. No evidence for pulmonary edema. IMPRESSION: No acute process. ACT 112: Negative or not required by law. Electronically signed by: Parker Estrada M.D. 06/04/2023 3:29 PM
[2023-06-04 15:34] LABS: Total Protein Peritoneal Fluid < 3.0 gm/dl
[2023-06-04] MEDS ORDERED: SODIUM CHLORIDE 0.9% 500 ML IV ONE (15:35)
--- NOTE | 2023-06-04 15:47 | Emergency Department Note ---
Impression & Plan Hypercalcemia, Adenocarcinoma, Weakness ED Provider Note Provider: Jeff Henson MD DATE OF SERVICE: 06/04/2023 CHIEF COMPLAINT: Confusion and some weakness HISTORY OF PRESENT ILLNESS: Patient is a 72-year-old female history unfortunately of liver mass following with outpatient oncology undergoing weekly abdominal paracentesis sent here from ultrasound today after the paracentesis for concerns for increased weakness and falls and some memory issues. Patient states for some time she is not able to give me a clear timeframe she has been having some increased leg weakness and memory issues. Feeling a bit foggy. No recent falls reported. Has been trying to use her walker at home but barely able to do this or go up the stairs. States he has little bit of pain in her back and abdomen but not uncommon after she has fluid drained from her stomach like she did just before coming over. Denies significant pain in the legs. No fevers or trouble breathing reported. Has been following with [facility] oncology. Has been using a bit of oxycodone at home for pain but taking at night and did not have any today. Again feels somewhat foggy and again generally weak. PAST MEDICAL HISTORY: As noted above MEDICATIONS: Reviewed home medications SOCIAL HISTORY: PHYSICAL EXAM: GENERAL: alert and oriented in no acute distress on stretcher fatigued in appearance Head: normocephalic and atraumatic EYES: No injection, discharge or icterus. NECK: Trachea midline. ENT: Mucous membranes pink and moist. LUNGS: Airway patent. No retractions or tachypnea HEART: Regular rate and rhythm. No chest wall tenderness ABDOMEN: Soft minimal tenderness with paracentesis sites not leaking present in left lower quadrant. SKIN: Acyanotic, warm, dry, without rashes EXTREMITIES: Without swelling, tenderness or deformity NEUROLOGICAL: No focal deficits. No aphasia. No facial droop or slurred speech. EK bpm normal sinus rhythm. No PVC or PAC. No acute ST segment elevation or depression with QTc of 385. CONTINUOUS CARDIAC MONITORING: was ordered and showed a heart rate of 60s-70s bpm in normal sinus rhythm Patient's laboratory studies and imaging reviewed. Differential includes Infection, dehydration, metabolic abnormality, hypo/hyperglycemia, electrolyte disturbance, anemia, hypoxia, cardiac sources, intracerebral event, toxicologic, neurologic, as well as other pathologies. IMPRESSION/MEDICAL DECISION MAKING: Reviewed [facility] oncology notes and appears the patient has metastatic adenocarcinoma involving the liver. Not currently on chemotherapy and taking more of a palliative approach from available notes and mail to read here. No GI bleed or fever symptoms reported. Generalized weakness reported with memory issues and fatigue. Not significantly tender in the abdomen but some pain here. Given recent paracentesis today drained the fluid will send the fluid off for testing. Will obtain a CT and possible CT of the head given some of her memory issues to look for any intracranial abnormality or bleeding. Blood work without anemia or leukocytosis and. Again afebrile no suspicion for infection. Demonstrates with mild hyponatremia. No significant renal dysfunction. Lactate within normal limits. Slight AST and alkaline phosphatase elevation not atypical given her history of metastatic adenocarcinoma involving the liver. Troponin just above normal at 16.6 but I doubt acute ACS. Ammonia within normal limits. Normal lactate. TSH slightly abnormal but not significantly. Procalcitonin 0.32 not significantly elevated. Negative COVID testing here. Calcium returned at 12.2. Likely this is etiology of her underlying fatigue and weakness. Will give some gentle IV hydration. CT of the head and abdomen pelvis out of findings reported of intracranial abnormality with worsening of her underlying liver lesions and some moderate ascites. Discussed with her and her at bedside these findings. Will need to reach out to the [facility] hematology/ oncology group with the patient's seen before to discuss possible treatment options the patient would prefer to go home if at all possible. In discussion with Dr. Montes, will bring in the hospital hydration and control of her calcium. Ordered IV dose of zoledronic acid for her hypocalcemia. Discussed with the hospitalist group and the patient and were in agreement with this plan to help with her symptoms and improve her sensorium. DIAGNOSIS: Fatigue/weakness, hypercalcemia, adenocarcinoma involving liver DISPOSITION: Hospitalist will evaluate Patient was agreeable with this plan. Critical Care I have personally spent 32 minutes of critical care time in the direct management of this patient. This includes bedside care, interpretation of diagnostic studies, and testing, discussion with consultants, patient, and family members, and other required patient management activities. These 32 minutes is in excess of all separately billable procedures. Past Med/Surg History Medical History (Updated 06/04/23 @ 17:12 by Jeff Henson M.D.) History of PSVT (paroxysmal supraventricular tachycardia) Surgical History (Updated 11/15/20 @ 14:59 by Radha Godwin PA-C) History of appendectomy History of colonoscopy with polypectomy History of radiofrequency ablation procedure for cardiac arrhythmia Family History (Updated 11/15/20 @ 15:34 by Radha Godwin PA-C) Sister Lung cancer Social History (Updated 11/15/20 @ 15:01 by Radha Godwin PA-C) Smoking Status: Unknown if ever smoked Hx Alcohol Use: No Hx Substance Use: No Preferred Language: Bahamian Communication Ability: Effective Patient Support Associate Required: No Beliefs That Will Affect Care: None marital status: Current Living Situation: Spouse Current Living Situation Comment: ranch style home Feels Safe at Home: Yes Assistive Devices: None Allergies Allergies Allergy/AdvReac Type Severity Reaction Status Date / Time No Known Allergies Allergy Unverified 12/19/22 10:23 Home Meds Home Medications Medication Instructions Recorded Confirmed No Known Home Medications 12/19/22 12/19/22 Results & Data (ED) Vital Signs Vital Signs - 24 hr 06/04/23 13:40 06/04/23 14:28 06/04/23 15:44 Temperature 36.4 C L Temperature Source Oral Pulse Rate 70 71 Pulse Rate [Apical] Respiratory Rate 18 Blood Pressure 112/63 Blood Pressure [Right Arm] Blood Pressure Mean 79 Blood Pressure Mean [Right Arm] Blood Pressure Position Lying Pulse Oximetry 97 97 Oxygen Delivery Method Room Air Room Air Sepsis Recent Fever Within 48 Hours No Sepsis New/Unexplained Change in Mental Status No Sepsis Action Taken by Nursing No Action Required 06/04/23 15:44 Temperature Temperature Source Pulse Rate Pulse Rate [Apical] 68 Respiratory Rate 16 Blood Pressure Blood Pressure [Right Arm] 132/63 Blood Pressure Mean Blood Pressure Mean [Right Arm] 86 Blood Pressure Position Pulse Oximetry 98 Oxygen Delivery Method Room Air Sepsis Recent Fever Within 48 Hours Sepsis New/Unexplained Change in Mental Status Sepsis Action Taken by Nursing Laboratory Data 06/04/23 13:45 06/04/23 13:45 Lab Results 06/04/23 06/04/23 06/04/23 Range/Units 13:45 13:45 13:45 WBC 5.48 (4.8-10.8) K/ul RBC 4.79 (4.20-5.40) M/uL Hgb 14.0 (12.0-16.0) g/dl Hct 42.6 (37.0-47.0) % MCV 88.9 (80.0-100.0) fL MCH 29.2 (25.0-34.0) pg MCHC 32.9 (32.0-36.0) g/dL RDW Std Deviation 54.0 H (36.4-46.3) fL RDW Coeff of Vicenta 16.5 H (11.5-14.5) % Plt Count 149 (130-400) K/uL MPV 11.6 (9.4-12.4) fL Immature Gran % (Auto) 0.5 % Neut % (Auto) 73.5 % Lymph % (Auto) 16.4 % [place] % (Auto) 8.8 % Eos % (Auto) 0.4 % Baso % (Auto) 0.4 % Neut # (Auto) 4.03 (1.40-6.50) K/uL Lymph # (Auto) 0.90 L (1.2-3.4) K/uL [place] # (Auto) 0.48 (0.11-0.59) K/uL Eos # (Auto) 0.02 (0-0.50) K/uL Baso # (Auto) 0.02 (0-0.2) K/uL Immature Gran # (Auto) 0.03 (0.01-0.20) K/uL PT 11.6 (9.0-12.0) Seconds INR 1.1 (0.9-1.1) Sodium 131 L (136-145) mmol/L Potassium 4.8 (3.5-5.1) mmol/L Chloride 103 (98-107) mmol/L Carbon Dioxide 18 L (21-32) mmol/L Anion Gap 10 (3-11) BUN 39 H (6-23) mg/dl Creatinine 0.94 (0.6-1.2) mg/dl Est Cr Clr Drug Dosing 46.7 ml/min Est GFR ( Amer) 70.2 ml/min Est GFR (Non-Af Amer) 60.6 ml/min BUN/Creatinine Ratio 41.5 H (10-20) Glucose 94 (70-99(Fasting)) mg/dl Lactate (0.4-2.0) mmol/L Calcium 12.2 H* (8.6-10.3) mg/dl Magnesium 2.2 (1.7-2.4) mg/dl Total Bilirubin 1.0 (0.2-1.0) mg/dl AST 62 H (13-39) U/L ALT 24 (7-52) U/L Alkaline Phosphatase 261 H (34-104) U/L Ammonia (18-72) umol/L Total Creatine Kinase 10 L (26-192) U/L Troponin I High Sens 16.6 H (0-14) pg/ml Total Protein 6.3 (6.0-8.3) gm/dl Albumin 3.3 L (3.4-5.0) gm/dl Globulin 3.0 (2.5-4.0) gm/dl Albumin/Globulin Ratio 1.1 (0.9-2) Procalcitonin (0-0.5) ng/ml TSH (0.300-4.500) uIu/ml Free T4 (0.61-1.60) ng/dl Fluid Comment Peritoneal Tot Protein gm/dl Peritoneal Albumin gm/dl SARS-CoV-2, RNA, NAAT (NEGATIVE) 06/04/23 06/04/23 06/04/23 Range/Units 13:45 14:55 14:55 WBC (4.8-10.8) K/ul RBC (4.20-5.40) M/uL Hgb (12.0-16.0) g/dl Hct (37.0-47.0) % MCV (80.0-100.0) fL MCH (25.0-34.0) pg MCHC (32.0-36.0) g/dL RDW Std Deviation (36.4-46.3) fL RDW Coeff of Vicenta (11.5-14.5) % Plt Count (130-400) K/uL MPV (9.4-12.4) fL Immature Gran % (Auto) % Neut % (Auto) % Lymph % (Auto) % [place] % (Auto) % Eos % (Auto) % Baso % (Auto) % Neut # (Auto) (1.40-6.50) K/uL Lymph # (Auto) (1.2-3.4) K/uL [place] # (Auto) (0.11-0.59) K/uL Eos # (Auto) (0-0.50) K/uL Baso # (Auto) (0-0.2) K/uL Immature Gran # (Auto) (0.01-0.20) K/uL PT (9.0-12.0) Seconds INR (0.9-1.1) Sodium (136-145) mmol/L Potassium (3.5-5.1) mmol/L Chloride (98-107) mmol/L Carbon Dioxide (21-32) mmol/L Anion Gap (3-11) BUN (6-23) mg/dl Creatinine (0.6-1.2) mg/dl Est Cr Clr Drug Dosing ml/min Est GFR ( Amer) ml/min Est GFR (Non-Af Amer) ml/min BUN/Creatinine Ratio (10-20) Glucose (70-99(Fasting)) mg/dl Lactate 1.9 (0.4-2.0) mmol/L Calcium (8.6-10.3) mg/dl Magnesium (1.7-2.4) mg/dl Total Bilirubin (0.2-1.0) mg/dl AST (13-39) U/L ALT (7-52) U/L Alkaline Phosphatase (34-104) U/L Ammonia 35.0 (18-72) umol/L Total Creatine Kinase (26-192) U/L Troponin I High Sens (0-14) pg/ml Total Protein (6.0-8.3) gm/dl Albumin (3.4-5.0) gm/dl Globulin (2.5-4.0) gm/dl Albumin/Globulin Ratio (0.9-2) Procalcitonin 0.32 (0-0.5) ng/ml TSH (0.300-4.500) uIu/ml Free T4 (0.61-1.60) ng/dl Fluid Comment Peritoneal Tot Protein gm/dl Peritoneal Albumin gm/dl SARS-CoV-2, RNA, NAAT (NEGATIVE) 06/04/23 06/04/23 06/04/23 Range/Units 14:57 Unknown Unknown WBC (4.8-10.8) K/ul RBC (4.20-5.40) M/uL Hgb (12.0-16.0) g/dl Hct (37.0-47.0) % MCV (80.0-100.0) fL MCH (25.0-34.0) pg MCHC (32.0-36.0) g/dL RDW Std Deviation (36.4-46.3) fL RDW Coeff of Vicenta (11.5-14.5) % Plt Count (130-400) K/uL MPV (9.4-12.4) fL Immature Gran % (Auto) % Neut % (Auto) % Lymph % (Auto) % [place] % (Auto) % Eos % (Auto) % Baso % (Auto) % Neut # (Auto) (1.40-6.50) K/uL Lymph # (Auto) (1.2-3.4) K/uL [place] # (Auto) (0.11-0.59) K/uL Eos # (Auto) (0-0.50) K/uL Baso # (Auto) (0-0.2) K/uL Immature Gran # (Auto) (0.01-0.20) K/uL PT (9.0-12.0) Seconds INR (0.9-1.1) Sodium (136-145) mmol/L Potassium (3.5-5.1) mmol/L Chloride (98-107) mmol/L Carbon Dioxide (21-32) mmol/L Anion Gap (3-11) BUN (6-23) mg/dl Creatinine (0.6-1.2) mg/dl Est Cr Clr Drug Dosing ml/min Est GFR ( Amer) ml/min Est GFR (Non-Af Amer) ml/min BUN/Creatinine Ratio (10-20) Glucose (70-99(Fasting)) mg/dl Lactate (0.4-2.0) mmol/L Calcium (8.6-10.3) mg/dl Magnesium (1.7-2.4) mg/dl Total Bilirubin (0.2-1.0) mg/dl AST (13-39) U/L ALT (7-52) U/L Alkaline Phosphatase (34-104) U/L Ammonia (18-72) umol/L Total Creatine Kinase (26-192) U/L Troponin I High Sens (0-14) pg/ml Total Protein (6.0-8.3) gm/dl Albumin (3.4-5.0) gm/dl Globulin (2.5-4.0) gm/dl Albumin/Globulin Ratio (0.9-2) Procalcitonin (0-0.5) ng/ml TSH 7.005 H (0.300-4.500) uIu/ml Free T4 0.72 (0.61-1.60) ng/dl Fluid Comment Peritoneal Tot Protein < 3.0 gm/dl Peritoneal Albumin < 1.5 gm/dl SARS-CoV-2, RNA, NAAT (NEGATIVE) 06/04/23 Range/Units Unknown WBC (4.8-10.8) K/ul RBC (4.20-5.40) M/uL Hgb (12.0-16.0) g/dl Hct (37.0-47.0) % MCV (80.0-100.0) fL MCH (25.0-34.0) pg MCHC (32.0-36.0) g/dL RDW Std Deviation (36.4-46.3) fL RDW Coeff of Vicenta (11.5-14.5) % Plt Count (130-400) K/uL MPV (9.4-12.4) fL Immature Gran % (Auto) % Neut % (Auto) % Lymph % (Auto) % [place] % (Auto) % Eos % (Auto) % Baso % (Auto) % Neut # (Auto) (1.40-6.50) K/uL Lymph # (Auto) (1.2-3.4) K/uL [place] # (Auto) (0.11-0.59) K/uL Eos # (Auto) (0-0.50) K/uL Baso # (Auto) (0-0.2) K/uL Immature Gran # (Auto) (0.01-0.20) K/uL PT (9.0-12.0) Seconds INR (0.9-1.1) Sodium (136-145) mmol/L Potassium (3.5-5.1) mmol/L Chloride (98-107) mmol/L Carbon Dioxide (21-32) mmol/L Anion Gap (3-11) BUN (6-23) mg/dl Creatinine (0.6-1.2) mg/dl Est Cr Clr Drug Dosing ml/min Est GFR ( Amer) ml/min Est GFR (Non-Af Amer) ml/min BUN/Creatinine Ratio (10-20) Glucose (70-99(Fasting)) mg/dl Lactate (0.4-2.0) mmol/L Calcium (8.6-10.3) mg/dl Magnesium (1.7-2.4) mg/dl Total Bilirubin (0.2-1.0) mg/dl AST (13-39) U/L ALT (7-52) U/L Alkaline Phosphatase (34-104) U/L Ammonia (18-72) umol/L Total Creatine Kinase (26-192) U/L Troponin I High Sens (0-14) pg/ml Total Protein (6.0-8.3) gm/dl Albumin (3.4-5.0) gm/dl Globulin (2.5-4.0) gm/dl Albumin/Globulin Ratio (0.9-2) Procalcitonin (0-0.5) ng/ml TSH (0.300-4.500) uIu/ml Free T4 (0.61-1.60) ng/dl Fluid Comment Peritoneal Tot Protein gm/dl Peritoneal Albumin gm/dl SARS-CoV-2, RNA, NAAT NEGATIVE (NEGATIVE) Administered Medications Discontinued Medications Sodium Chloride (Nss) 500 mls @ 999 mls/hr IV .Q31M ONE Stop: 06/04/23 16:05 Last Admin: 06/04/23 16:11 Dose: 999 mls/hr Documented By: BMK Imaging Data Radiologist's Impression: Chest X-Ray 06/04/23 14:38 XR chest 1V portable HISTORY: weakness COMPARISON: Chest 12/19/2022. FINDINGS: No pneumothorax. No pleural effusions. The cardiac silhouette is normal in size. No evidence for pulmonary edema. Mild elevation of the right hemidiaphragm, unchanged. Right basilar linear densities have improved. This favors resolving atelectasis. No new focal lung consolidations to suggest a pneumonia. No evidence for pulmonary edema. IMPRESSION: No acute process. ACT 112: Negative or not required by law. Electronically signed by: Parker Estrada M.D. 06/04/2023 3:[address] 06/04/23 14:38 CT SCAN OF THE BRAIN WITHOUT IV CONTRAST CLINICAL HISTORY: Change in mental status. Generalized weakness. COMPARISON STUDY: No priors. TECHNIQUE: Unenhanced axial CT scan of the brain is performed from the vertex to the skull base. A dose lowering technique was utilized adhering to the principles of ALARA. FINDINGS: Brain parenchyma: There is age-related involutional change noting mild subcortical and periventricular microangiopathic disease. There is no hemorrhage, mass effect, or evidence of acute territorial ischemia by CT criteria. Marie-white matter differentiation is preserved. No extra-axial fluid collection is seen. Ventricles, sulci, cisterns: Prominent secondary to involutional change. Intracranial vasculature: There is atherosclerotic calcification of the cavernous carotid arteries. Calvarium: Unremarkable. Sinuses and mastoids: The visualized paranasal sinuses are clear. The mastoid air cells are well pneumatized. Orbits: The bony orbits are grossly intact. IMPRESSION: There is no hemorrhage, mass effect, or evidence of acute territorial ischemia by CT criteria. ACT 112: Negative or not required by law. Electronically signed by: Antoni Gerardo M.D. 06/04/2023 3:14 PM Abdomen/Pelvis CT 06/04/23 14:39 CT abd pelvis wo con CLINICAL HISTORY: confusion, abd pain TECHNIQUE: Helical axial images of the abdomen and pelvis were obtained. Automat ed dose lowering techniques and/or adjustment according to patient size were utilized for this exam. This exam was performed without intravenous contrast. CT DOSE: 1298.72 mGy.cm COMPARISON: Comparison is made to CT abdomen pelvis 12/19/2022 FINDINGS: Lower chest: Bibasilar atelectasis versus scarring is seen. Partial visualization of right cardiophrenic nodes. Liver: Extensive hepatic hypodensity measures 20.1 x 17.8 cm,, previously 18.7 x 14.7 cm. Gallbladder and biliary tree: No calcified gallstones. Normal caliber wall. No intra- or extrahepatic biliary ductal dilation. Pancreas: Unremarkable, no focal lesions. Spleen: Splenomegaly is seen with a craniocaudal of 20.3 cm. Adrenals: Unremarkable. Kidneys and ureters: Nonobstructive nephrolithiasis is seen. Bladder: Unremarkable. Reproductive organs: Unremarkable. Bowel: Unremarkable. Lymph nodes Retroperitoneal: Unremarkable. Pelvic: Unremarkable. Mesenteric: Unremarkable. Peritoneum: Moderate ascites is seen. Vessels: Atherosclerotic calcifications are seen. Esophageal varices are noted. Abdominal wall: Unremarkable. Bones: Degenerative changes in the visualized spine. IMPRESSION: 1. Interval worsening of liver lesion. Moderate ascites and splenomegaly. A few esophageal varices are seen. 2. Redemonstration of cardiophrenic nodes which are nonspecific but may represent metastases. ACT 112: Negative or not required by law. Electronically signed by: Andre Rowland M.D. 06/04/2023 3:26 PM Discharge Plan Visit Data Chief Complaint: Illness Stated Complaint: CONFUSION ED Provider: Jeff Henson Discharge Problem: Hypercalcemia, Adenocarcinoma, Weakness Patient Disposition: Being Evaluated by Hospitalist Forms Stand Alone Forms: [facility] [place] [facility] Prescriptions Prescriptions: No Action No Known Home Medications Referrals Referrals: Bernarda Recinos MD [Primary Care Provider] -
[2023-06-04 15:48] LABS: Thyroid Stimulating Hormone 7.005 uIu/ml (0.300-4.500)
[2023-06-04 15:56] LABS: INR 1.1 (0.9-1.1); Prothrombin Time 11.6 Seconds (9.0-12.0)
[2023-06-04] MEDS ORDERED: ZOLEDRONIC ACID 4 MG in 0.9 % SODIUM CHLORIDE 100 ML IV ONE (16:31)
[2023-06-04 16:32] LABS: Appearance Urine Clear (Clear); Bilirubin Urine Negative (Negative); Blood Urine Negative (Negative); Color Urine Yellow; Glucose Urine UA Negative (Negative); Ketones Urine Negative (Negative); Leukocyte Esterase Urine Negative (Negative); Nitrite Urine Negative (Negative); Protein Urine Trace (Negative); Urobilinogen Urine Negative (Negative); pH Urine 5.5 (4.5-7.5)
[2023-06-04 16:41] LABS: T4 Free Thyroxine 0.72 ng/dl (0.61-1.60)
--- NOTE | 2023-06-04 17:08 | Communication Note ---
Date of Service: June 04, 2023 ATTENDING ADDENDUM TO H&P: 72 yo F presents with increased weakness and confusion while undergoing her weekly abdominal paracentesis. She was sent over from the ultrasound dept with these concerns. Patient reports some back pain "that began during my recent paracentesis." She had 3.6L removed today. History was somewhat limited 2/2 mild confusion. She then reassures me that she takes "something at night" (for pain). She appears dehydrated with clearly dry oral mucosa and reports poor PO intake with 50 lb weight loss over the last 6 months. On exam she is thin and cachectic. There is no evidence of asterixis. She has a soft NTND abdomen with some TTP in the RLQ. Lungs are CTAB and she is not exhibiting any respiratory distress. CV exam reveals S1/2 heard without murmurs and regular rate and rhythm. Workup includes a normal glucose, Ca 12.2 (corrected 12.8) consistent with moderate hypercalcemia. CBC unremarkable, BUN/creat ratio elevated consistent with dehydration (39/0.94). Trop slightly elevated at 16. TSH 7.0 UA pending. Imaging includes CT a/p revealing ascites, splenomegaly, esophageal varices, interval worsening of liver lesion and redemonstration of cardiophrenic nodes which are nonspecific but may represent metastases. 1. Acute metabolic encephalopathy 2/2 hypercalcemia of malignancy 2. ?cholangiocarcinoma (no confirmed primary cancer) with metastatic adenocarcinoma of liver 3. Severe protein calorie malnutrition 4. Cirrhosis with ascites and esophageal varices 5. Cancer related pain Symptomatic hypercalcemia is the likely cause of her dehydration and confusion today. Agree with IVF and oral rehydration efforts and holding diuretics at this time. No evidence of infection present and ascitic gram stain is pending from recent paracentesis today. She appears comfortable overall at this time. Will cont narcotic pain medications for management of pain as needed. Per PDMP, she has been taking Percocet prescribed by her outpatient palliative care physician. She does not wish to pursue cancer treatment at this time. Zolendronic acid ordered and will monitor calcium level this evening. If it is rising, or if she is worsening, will consider starting calcitonin. DO Abundio
[2023-06-04 17:43] LABS: Appearance Peritoneal Fluid Slightly Hazy; Color Peritoneal Fluid Pale Yellow; Lymphocytes, Fluid 42 %; Mono,Macrophage,Mesothelial 53 %; Neutrophils, Fluid 5 %; RBC Peritoneal Fluid Auto < 2000 /uL; WBC Peritoneal Fluid Auto 159 /ul (0-300)
[2023-06-04 17:49] LABS: RBC Urine Automated 0-4 /hpf (0-4)
[2023-06-04 17:50] LABS: Bacteria Urine Automated Negative (Negative); Cast Urine Automated >30 /lpf (0-5); Epithelial Cell Urine Auto 0-5 /lpf (0-5)
--- NOTE | 2023-06-04 18:05 | Electrocardiogram Report ---
Test Reason : Blood Pressure : / mmHG Vent. Rate : 066 BPM Atrial Rate : 066 BPM P-R Int : 148 ms QRS Dur : 090 ms QT Int : 368 ms P-R-T Axes : 000 002 -01 degrees QTc Int : 385 ms Ectopic atrial rhythm Poor R wave progression, consider anterior OH vs. lead placement vs. LVH Nonspecific ST abnormality Abnormal ECG When compared with ECG of 19-DEC-2022 09:25, No significant change was found Confirmed by Rahul Balbuena ([id number]) on 06/04/2023 6:04:50 PM Referred By: REFERRED SELF Confirmed By:Cesar Balbuena
--- NOTE | 2023-06-04 19:14 | History & Physical Report ---
Date of Service June 04, 2023 Assessment & Plan (1) Hypercalcemia: Plan: Admit to telemetry Patient referred to ED after outpatient paracentesis for evaluation of generalized weakness and confusion. In the ED, labs show Ca +12.2 --hypercalcemia likely secondary to underlying malignancy ED discussed with oncology who recommended a dose of IV zoledronic acid. Will also start IVF Recheck BMP this evening PT/OT (2) Adenocarcinoma: (3) Liver mass: Plan: History of liver mass suggestive of metastatic adenocarcinoma, unknown primary. Patient elected to not receive chemotherapy. She does require weekly paracenteses --last paracentesis today for 3.[address] Christos Dangelo (4) Elevated TSH: Plan: TSH 7.0 with normal T4 Outpatient follow-up DVT PROPHYLAXIS SQ Lovenox Patient seen in collaboration with Dr. Del Castillo. I spent a total of 75 minutes coordinating, documenting, and providing care for this patient excluding time spent in the performance of separately billed services. This included personally reviewing all current laboratories and imaging studies, medication reconciliation, outpatient chart review, and discussion with specialists. History of Present Illness Chief Complaint: Generalized weakness, confusion Primary Care Provider: Bernarda Recinos MD 72-year-old female with PMH liver mass suggestive of metastatic adenocarcinoma, unknown primary currently not receiving treatment, recurrent ascites requiring weekly paracenteses, and other problem listed below who presents to the ED for evaluation of generalized weakness and confusion. History is obtained from the patient at the bedside as well as review of outpatient PCP, oncology, GI records. Patient reports that over the past 2 days, she has noticed increasing generalized weakness and confusion. Patient was at her weekly paracenteses appointment today and was referred to the ED for further evaluation. Patient reports she has a poor appetite. She denies abdominal pain, nausea, vomiting, diarrhea. No other recent illnesses, fevers, chills. She denies chest pain or shortness of breath. No lightheadedness, dizziness, diaphoresis, syncopal events. She denies urinary symptoms. In the ED, labs show calcium 12.2. ED discussed case with oncology who recommended a dose of IV zoledronic acid. Patient also was given IVF. Allergies Allergy/AdvReac Type Severity Reaction Status Date / Time No Known Allergies Allergy Unverified 06/04/23 17:19 Home Medications Medication Instructions Recorded Confirmed Type furosemide 40 mg tablet 40 mg PO QAM 06/04/23 06/04/23 History magnesium oxide 250 mg PO DAILY 06/04/23 06/04/23 History oxycodone-acetaminophen 5 mg-325 1 tab PO Q4H PRN Pain 06/04/23 06/04/23 History mg tablet potassium chloride 20 mEq 20 meq PO QAM 06/04/23 06/04/23 History tablet,extended release(part/cryst) Past Med/Surg History Medical History Adenocarcinoma History of PSVT (paroxysmal supraventricular tachycardia) Liver mass Surgical History History of appendectomy History of colonoscopy with polypectomy History of radiofrequency ablation procedure for cardiac arrhythmia Family History Sister Lung cancer Social History Smoking Status: Never smoker Do You Dip or Chew Tobacco: No; Hx Alcohol Use: No Hx Substance Use: No Preferred Language: Dutch Communication Ability: Effective Central Processing Tech Required: No Beliefs That Will Affect Care: None marital status: Current Living Situation: Spouse Current Living Situation Comment: ranch home Other Information That Helps Us Care for You: No Feels Safe at Home: Yes Safety Concerns: Feels Safe At This Time Assistive Devices: Walker Review of Systems Review of Systems: ROS per HPI, all other systems reviewed and negative Physical Exam Constitutional: + ill appearing and + thin; no acute distress Eyes: PERRL, conjunctivae normal, anicteric sclerae ENMT: external ear and nose normal, oropharynx normal Respiratory: normal respiratory effort, lungs clear to auscultation Cardiovascular: Rate/Rhythm: regular rate and regular rhythm Vessels: normal peripheral pulses Extremities: no edema Gastrointestinal (Abdomen): normal bowel sounds, soft, nontender, no hepatosplenomegaly Musculoskeletal: no cyanosis or clubbing, extremities motor strength 5/5 Skin: no rashes, warm and dry Neurologic: PERRL, EOMI, accommodation nl, no face palsy, no dysarthria Psychiatric: A+Ox3, euthymic affect Slow to respond Results & Data Results & Data Vital Signs (Past 12 Hours) Vital Signs Temp Pulse Pulse Resp BP BP Pulse Ox 06/04/23 18:34 71 18 110/64 98 06/04/23 15:44 68 16 132/63 98 06/04/23 15:44 97 06/04/23 14:28 71 06/04/23 13:40 36.4 C L 70 18 112/63 97 O2 Del Method 06/04/23 18:34 Room Air 06/04/23 15:44 Room Air 06/04/23 15:44 Room Air 06/04/23 14:28 06/04/23 13:40 Room Air Laboratory Results Short CBC 06/04/23 Range/Units 13:45 WBC 5.48 (4.8-10.8) K/ul Hgb 14.0 (12.0-16.0) g/dl Hct 42.6 (37.0-47.0) % Plt Count 149 (130-400) K/uL BMP 06/04/23 13:45 Sodium 131 L Potassium 4.8 Chloride 103 Carbon Dioxide 18 L BUN 39 H Creatinine 0.94 Glucose 94 Calcium 12.2 H* Cardiac Enzymes 06/04/23 Range/Units 13:45 Total Creatine Kinase 10 L (26-192) U/L Liver Function 06/04/23 Range/Units 13:45 Total Bilirubin 1.0 (0.2-1.0) mg/dl AST 62 H (13-39) U/L ALT 24 (7-52) U/L Alkaline Phosphatase 261 H (34-104) U/L Albumin 3.3 L (3.4-5.0) gm/dl Urine 06/04/23 Range/Units 16:10 Urine Color Yellow Urine Appearance Clear (Clear) Urine pH 5.5 (4.5-7.5) Ur Specific [place] 1.020 (1.000-1.030) Urine Protein Trace H (Negative) Urine Glucose (UA) Negative (Negative) Diagnostic Findings Chest X-Ray 06/04/23 14:38 XR chest 1V portable HISTORY: weakness COMPARISON: Chest 12/19/2022. FINDINGS: No pneumothorax. No pleural effusions. The cardiac silhouette is normal in size. No evidence for pulmonary edema. Mild elevation of the right hemidiaphragm, unchanged. Right basilar linear densities have improved. This favors resolving atelectasis. No new focal lung consolidations to suggest a pneumonia. No evidence for pulmonary edema. IMPRESSION: No acute process. ACT 112: Negative or not required by law. Electronically signed by: Parker Estrada M.D. 06/04/2023 3:[address] 06/04/23 14:38 CT SCAN OF THE BRAIN WITHOUT IV CONTRAST CLINICAL HISTORY: Change in mental status. Generalized weakness. COMPARISON STUDY: No priors. TECHNIQUE: Unenhanced axial CT scan of the brain is performed from the vertex to the skull base. A dose lowering technique was utilized adhering to the principles of ALARA. FINDINGS: Brain parenchyma: There is age-related involutional change noting mild subcortical and periventricular microangiopathic disease. There is no hemorrhage, mass effect, or evidence of acute territorial ischemia by CT criteria. Marie-white matter differentiation is preserved. No extra-axial fluid collection is seen. Ventricles, sulci, cisterns: Prominent secondary to involutional change. Intracranial vasculature: There is atherosclerotic calcification of the cavernous carotid arteries. Calvarium: Unremarkable. Sinuses and mastoids: The visualized paranasal sinuses are clear. The mastoid air cells are well pneumatized. Orbits: The bony orbits are grossly intact. IMPRESSION: There is no hemorrhage, mass effect, or evidence of acute territorial ischemia by CT criteria. ACT 112: Negative or not required by law. Electronically signed by: Antoni Gerardo M.D. 06/04/2023 3:14 PM Abdomen/Pelvis CT 06/04/23 14:39 CT abd pelvis wo con CLINICAL HISTORY: confusion, abd pain TECHNIQUE: Helical axial images of the abdomen and pelvis were obtained. Au tomated dose lowering techniques and/or adjustment according to patient size were utilized for this exam. This exam was performed without intravenous contrast. CT DOSE: 1298.72 mGy.cm COMPARISON: Comparison is made to CT abdomen pelvis 12/19/2022 FINDINGS: Lower chest: Bibasilar atelectasis versus scarring is seen. Partial visualization of right cardiophrenic nodes. Liver: Extensive hepatic hypodensity measures 20.1 x 17.8 cm,, previously 18.7 x 14.7 cm. Gallbladder and biliary tree: No calcified gallstones. Normal caliber wall. No intra- or extrahepatic biliary ductal dilation. Pancreas: Unremarkable, no focal lesions. Spleen: Splenomegaly is seen with a craniocaudal of 20.3 cm. Adrenals: Unremarkable. Kidneys and ureters: Nonobstructive nephrolithiasis is seen. Bladder: Unremarkable. Reproductive organs: Unremarkable. Bowel: Unremarkable. Lymph nodes Retroperitoneal: Unremarkable. Pelvic: Unremarkable. Mesenteric: Unremarkable. Peritoneum: Moderate ascites is seen. Vessels: Atherosclerotic calcifications are seen. Esophageal varices are noted. Abdominal wall: Unremarkable. Bones: Degenerative changes in the visualized spine. IMPRESSION: 1. Interval worsening of liver lesion. Moderate ascites and splenomegaly. A few esophageal varices are seen. 2. Redemonstration of cardiophrenic nodes which are nonspecific but may represent metastases. ACT 112: Negative or not required by law. Electronically signed by: Andre Rowland M.D. 06/04/2023 3:26 PM Code Status & VTE Plan Code Status Patient is a DNR as per my discussion with her. VTE Prophylaxis Plan VTE Prophylaxis will be ordered: Yes Supervising Physician Co-Signing Physician Notes I have seen and examined the patient and have discussed the case with the provider above. I agree with the assessment and plan as stated. 72 yo F presents with increased weakness and confusion while undergoing her weekly abdominal paracentesis. She was sent over from the ultrasound dept with these concerns. Patient reports some back pain "that began during my recent paracentesis." She had 3.6L removed today. History was somewhat limited 2/2 mild confusion. She then reassures me that she takes "something at night" (for pain). She appears dehydrated with clearly dry oral mucosa and reports poor PO intake with 50 lb weight loss over the last 6 months. On exam she is thin and cachectic. There is no evidence of asterixis. She has a soft NTND abdomen with some TTP in the RLQ. Lungs are CTAB and she is not exhibiting any respiratory distress. CV exam reveals S1/2 heard without murmurs and regular rate and rhythm. Workup includes a normal glucose, Ca 12.2 (corrected 12.8) consistent with moderate hypercalcemia. CBC unremarkable, BUN/creat ratio elevated consistent with dehydration (39/0.94). Trop slightly elevated at 16. TSH 7.0 UA pending. Imaging includes CT a/p revealing ascites, splenomegaly, esophageal varices, interval worsening of liver lesion and redemonstration of cardiophrenic nodes which are nonspecific but may represent metastases. 1. Acute metabolic encephalopathy 2/2 hypercalcemia of malignancy 2. ?cholangiocarcinoma (no confirmed primary cancer) with metastatic adenocarcinoma of liver 3. Severe protein calorie malnutrition 4. Cirrhosis with ascites and esophageal varices 5. Cancer related pain Symptomatic hypercalcemia is the likely cause of her dehydration and confusion today. Agree with IVF and oral rehydration efforts and holding diuretics at this time. No evidence of infection present and ascitic gram stain is pending from recent paracentesis today. She appears comfortable overall at this time. Will cont narcotic pain medications for management of pain as needed. Per PDMP, she has been taking Percocet prescribed by her outpatient palliative care physician. She does not wish to pursue cancer treatment at this time. Zolendronic acid ordered and will monitor calcium level this evening. If it is rising, or if she is worsening, will consider starting calcitonin. DO Abundio
[2023-06-04] MEDS ORDERED: ENOXAPARIN INJ 40 MG/0.4 ML SYR SQ SCH (21:00)
[2023-06-04] MEDS: SODIUM CHLORIDE 0.9% 1000ML 1,000 ML IV SCH (21:00)
[2023-06-04] MEDS: oxyCODONE/ACETAMINOPHEN 5mg/325mg TAB PO PRN (21:51)
[2023-06-04 22:57] LABS: BUN Creatinine Ratio 44.4 (10-20); Creatinine Clr Calc Pharmacy 47.3 ml/min; Est GFR (Non-African American) 63.9 ml/min; Potassium 4.5 mmol/L (3.5-5.1)
[2023-06-05 06:44] LABS: Hematocrit (blood only) 40.3 % (37.0-47.0); Hemoglobin 13.3 g/dl (12.0-16.0); Mean Corpuscular Volume 90.8 fL (80.0-100.0); Mean Platelet Volume 11.1 fL (9.4-12.4); Platelet Count 144 K/uL (130-400); RDW Coefficient of Variation 16.8 % (11.5-14.5); RDW Standard Deviation 55.9 fL (36.4-46.3); Red Blood Count 4.44 M/uL (4.20-5.40); White Blood Count 4.88 K/ul (4.8-10.8)
[2023-06-05 06:53] LABS: Calcium 11.3 mg/dl (8.6-10.3); Creatinine Clr Calc Pharmacy 49.6 ml/min; Est GFR (African American) 78.2 ml/min; Est GFR (Non-African American) 67.5 ml/min; Potassium 4.7 mmol/L (3.5-5.1)
[2023-06-05] MEDS: SODIUM CHLORIDE 0.9% 1000ML 1,000 ML IV SCH ×4 (08:15→23:25)
[2023-06-05] MEDS: POTASSIUM CHLORIDE CRTAB 20 MEQ TABCR PO SCH (08:16)
[2023-06-05] MEDS: MAGNESIUM OXIDE 400 MG TAB PO SCH (08:16)
[2023-06-05] MEDS: oxyCODONE/ACETAMINOPHEN 5mg/325mg TAB PO PRN ×2 (08:18→20:50)
--- NOTE | 2023-06-05 08:30 | Hospitalist Progress Note ---
Date of Service June 05, 2023 Assessment & Plan (1) Hypercalcemia: Plan: moderate 12.8 corrected calcium on admission. 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 She is under palliative care as outpatient and not pursuing treatments. Cont to support her back pain wtih pain medications. Recent PET scan reveals a new met focus in her spine S3. Will scn her with CT chest and consider rad onc consultation if additional mets are present. (3) Liver mass: Plan: History of liver mass suggestive of metastatic adenocarcinoma, unknown primary. Patient elected to not receive chemotherapy. She does require weekly paracenteses --last paracentesis for 3.6 L on 06/[address] Christos Dangelo (4) Unspecified severe protein-calorie malnutrition: Plan: regular diet unrestricted. RD ordered additional snacks (5) Elevated TSH: Plan: TSH 7.0 with normal T4 Outpatient follow-up DVT PROPHYLAXIS-pt refuses Lovenox DNR/DNI Dispo-to home when improves clinically. I spent a total [id number] coordinating, documenting, and providing care for this patient excluding time spent in the performance of separately billed services Caryl Del Castillo DO [facility] Hospitalist Admission and Anticipated Discharge Date Admission Date: June 04, 2023 Subjective 72 yo F presents with symptomatic hypercalcemia She is still moving slowly but appears improved She states that she "isn't donig well today" She tried to say that she "took that pill..." and then trailed off. Reports pain in her back and took some Percocet this morning which helped tolerating PO Review of Systems Review of Systems: All systems reviewed negative septa as indicated above. Physical Exam Physical Exam: CONSTITUTIONAL: thin, frail, vitals as above, generally ill-appearing and lethargic EYES: normal conjunctivae, no scleral icterus ENT: external ear and nose normal, MMM NECK: trachea midline, RESPIRATORY: clear to auscultation bilaterally, no crackles, rales or wheezes, normal respiratory effort CARDIOVASCULAR: regular rate and rhythm, S1 and 2 heard without murmurs, gallops or rubs, no JVD, no peripheral edema CHEST: inspection of chest was normal GASTROINTESTINAL: soft, nontender, ND, no guarding MUSCULOSKELETAL: strength 5/5 throughout, head is normocephalic and atraumatic SKIN: warm and dry NEUROLOGIC: CN 2-12 grossly intact, no sensory deficit, normal cognition, normal speech, no tremor PSYCHIATRIC: alert cooperative and oriented but is slow to complete her thoughts, improved mentation compared to yesterday. Results & Data Results & Data Vital Signs (Past 12 Hours) Vital Signs Temp Pulse Pulse Resp BP Pulse Ox O2 Del Method 06/05/23 08:00 68 06/05/23 07:02 36.5 C 64 18 104/61 98 Room Air 06/05/23 03:00 36.7 C 60 16 92/60 L 98 Room Air 06/04/23 23:00 36.3 C L 62 16 103/63 96 Room Air Laboratory Results Short CBC 06/04/23 06/05/23 Range/Units 13:45 05:26 WBC 5.48 4.88 (4.8-10.8) K/ul Hgb 14.0 13.3 (12.0-16.0) g/dl Hct 42.6 40.3 (37.0-47.0) % Plt Count 149 144 (130-400) K/uL BMP 06/04/23 06/04/23 06/04/23 13:45 20:30 22:19 Sodium 131 L Cancelled 131 L Potassium 4.8 Cancelled 4.5 Chloride 103 Cancelled 105 Carbon Dioxide 18 L Cancelled 19 L BUN 39 H Cancelled 40 H Creatinine 0.94 Cancelled 0.90 Glucose 94 Cancelled 114 H Calcium 12.2 H* Cancelled 11.0 H 06/05/23 05:26 Sodium 133 L Potassium 4.7 Chloride 107 Carbon Dioxide 19 L BUN 37 H Creatinine 0.86 Glucose 85 Calcium 11.3 H Cardiac Enzymes 06/04/23 Range/Units 13:45 Total Creatine Kinase 10 L (26-192) U/L Liver Function 06/04/23 Range/Units 13:45 Total Bilirubin 1.0 (0.2-1.0) mg/dl AST 62 H (13-39) U/L ALT 24 (7-52) U/L Alkaline Phosphatase 261 H (34-104) U/L Albumin 3.3 L (3.4-5.0) gm/dl Urine 06/04/23 Range/Units 16:10 Urine Color Yellow Urine Appearance Clear (Clear) Urine pH 5.5 (4.5-7.5) Ur Specific [place] 1.020 (1.000-1.030) Urine Protein Trace H (Negative) Urine Glucose (UA) Negative (Negative) Medications Administered Current Inpatient Medications Acetaminophen (Acetaminophen 325 Mg Tab) 650 mg PO Q4H PRN PRN Reason: Pain or Fever Stop: 07/04/23 20:07 Enoxaparin Sodium (Enoxaparin Inj 40 Mg/0.4 Ml Syr) 40 mg SQ Q24H [facility] Stop: 07/04/23 20:59 Last Admin: 06/05/23 02:09 Dose: Not Given Sodium Chloride (Nss 1000ml) 1,000 mls @ 150 mls/hr IV .[id number] [facility] Stop: 07/04/23 17:14 Last Admin: 06/05/23 08:15 Dose: 100 mls/hr Magnesium Oxide (Magnesium Oxide 400 Mg Tab) 200 mg PO DAILY [facility] Stop: 07/05/23 08:59 Last Admin: 06/05/23 08:16 Dose: 200 mg Oxycodone/Acetaminophen (Oxycodone/Acetaminophen 5mg/325mg Tab) 1 tab PO Q4H PRN PRN Reason: moderate pain Stop: 06/18/23 20:07 Last Admin: 06/05/23 08:18 Dose: 1 tab Potassium Chloride (Potassium Chloride Crtab 20 Meq Tabcr) 20 meq PO QAM [facility] Stop: 07/05/23 08:59 Last Admin: 06/05/23 08:16 Dose: 20 meq
[2023-06-05 16:33] LABS: BUN Creatinine Ratio 37.5 (10-20); Calcium 10.8 mg/dl (8.6-10.3); Creatinine Clr Calc Pharmacy 44.4 ml/min; Est GFR (African American) 68.5 ml/min; Est GFR (Non-African American) 59.1 ml/min; Potassium 5.1 mmol/L (3.5-5.1)
--- NOTE | 2023-06-05 21:36 | CT Scan Report ---
Exam(s): CT CHEST Without Contrast EXAM: CT Chest Without Intravenous Contrast CLINICAL HISTORY: Reason for exam: rule out mets, +Ca and back pain. TECHNIQUE: Axial computed tomography images of the chest without intravenous contrast. Automated exposure control was utilized for the study. A dose lowering technique was utilized adhering to the principles of ALARA. COMPARISON: Chest x-ray from June 04, 2023 FINDINGS: Lungs: There is partial visualization of a large mass lesion measuring at least 22 cm occupying the entire right liver lobe. There is mild, 3 cm elevation of the right diaphragm and a trace amount of right lung base subsegmental atelectasis. No pulmonary mass or nodule is identified. Pleural space: Unremarkable. No pneumothorax. No significant effusion. Heart: Mild mitral and coronary calcification is present. No pericardial effusion. Bones/joints: Mild to moderate multilevel osteophytosis throughout the mid to lower thoracic spine. No acute fracture or destructive bone lesion is seen. No dislocation. Soft tissues: Unremarkable. Vasculature: Unremarkable. No thoracic aortic aneurysm. Lymph nodes: Unremarkable. No enlarged lymph nodes. IMPRESSION: 1. No pulmonary mass or nodule is identified. 2. There is partial visualization of a large mass lesion measuring at least 22 cm occupying the entire right liver lobe. There is mild, 3 cm elevation of the right diaphragm and a trace amount of right lung base subsegmental atelectasis. Electronically signed by: Jeff Mclain MD 06/05/23 21:36 PM
[2023-06-06] MEDS: SODIUM CHLORIDE 0.9% 1000ML 1,000 ML IV SCH (06:19)
[2023-06-06 06:40] LABS: Albumin Level 2.6 gm/dl (3.4-5.0); BUN Creatinine Ratio 35.6 (10-20); Calcium 9.9 mg/dl (8.6-10.3); Creatinine Clr Calc Pharmacy 50.5 ml/min; Est GFR (African American) 77.1 ml/min; Est GFR (Non-African American) 66.6 ml/min; Phosphorus 1.9 mg/dl (2.5-4.9); Potassium 4.7 mmol/L (3.5-5.1)
[2023-06-06] MEDS: MAGNESIUM OXIDE 400 MG TAB PO SCH (07:57)
[2023-06-06] MEDS: POTASSIUM CHLORIDE CRTAB 20 MEQ TABCR PO SCH (07:59)
--- NOTE | 2023-06-06 08:10 | Hospitalist Progress Note ---
Date of Service June 06, 2023 Assessment & Plan (1) Hypercalcemia: Plan: moderate 12.8 corrected calcium on admission. She is less symptomatic today and Ca level has normalized after IVF and zometa. Zometa administered 06/04 Cont to trend calcium and support her cancer pain Encouraged her to move around more today. (2) Hypotension: Plan: multifactorial related to poor PO intake, hepatic disease with ascites, and possibly a side effect from narcotics. 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 She is under palliative care as outpatient and not pursuing treatments. Back pain has resolved. CT chest yesterday without any evidence of fracture or lytic lesion i n spine. This result was shared with patient and her . Recent PET scan reveals a new met focus in her spine S3. Cont per oncology and palliative. I did discuss rad onc as an option if she were to experience severe spine or bony pain from mets. (4) Liver mass: Plan: History of liver mass suggestive of metastatic adenocarcinoma, unknown primary. Patient elected to not receive chemotherapy. She does require weekly paracenteses --last paracentesis for 3.6 L on 06/[address] Christos Dangelo (5) Unspecified severe protein-calorie malnutrition: Plan: regular diet unrestricted. RD ordered additional snacks, cont to encourage PO intake. (6) Elevated TSH: Plan: TSH 7.0 with normal T4 Outpatient follow-up DVT PROPHYLAXIS-pt refuses Lovenox DNR/DNI Dispo-to home when improves clinically. Likely tomorrow. PT evaluated yesterday and ok to return home with support. I communicated with him by phone today and updated him on the plan. All questions were answered to his satisfaction. I spent a total [id number] coordinating, documenting, and providing care for this patient excluding time spent in the performance of separately billed services Caryl Del Castillo DO [facility]ist Admission and Anticipated Discharge Date Admission Date: June 05, 2023 Subjective 72 yo F presents with symptomatic hypercalcemia Feeling better today but still slow to function Denies any pain in her back pain today some leg pain which is chronic we discussed that she has a possible metastatic focus in her sacrum per the PET scan She said she had discussed this [facility] but there is no current pain We called her together while at the bedside and updated him on the plan to possibly send her home tomorrow. She states the percocet is too strong for her, and we discussed trying T3 Review of Systems Review of Systems: All systems reviewed negative except as indicated above. Physical Exam Physical Exam: CONSTITUTIONAL: thin, frail, vitals as above, generally appears chronically ill, brighter and more energetic today. EYES: normal conjunctivae, no scleral icterus ENT: external ear and nose normal, MMM NECK: trachea midline, RESPIRATORY: clear to auscultation bilaterally, no crackles, rales or wheezes, normal respiratory effort CARDIOVASCULAR: regular rate and rhythm, S1 and 2 heard without murmurs, gallops or rubs, no JVD, no peripheral edema CHEST: inspection of chest was normal GASTROINTESTINAL: soft, nontender, ND, no guarding MUSCULOSKELETAL: strength 5/5 throughout, sits up with some assistance needed, head is normocephalic and atraumatic SKIN: warm and dry NEUROLOGIC: CN 2-12 grossly intact, no sensory deficit, normal cognition, normal speech, no tremor PSYCHIATRIC: alert cooperative and oriented but is slow to complete her thoughts, improved mentation compared to yesterday. Results & Data Results & Data Vital Signs (Past 12 Hours) Vital Signs Temp Pulse Pulse Resp BP Pulse Ox O2 Del Method 06/06/23 06:19 98/53 L 06/06/23 03:00 36.4 C L 72 18 97/49 L 96 Room Air 06/05/23 22:00 68 06/05/23 23:44 36.6 C 69 18 98/51 L 96 Room Air Laboratory Results BMP 06/05/23 06/06/23 15:59 06:01 Sodium 134 L 131 L Potassium 5.1 4.7 Chloride 107 107 Carbon Dioxide 21 19 L BUN 36 H 31 H Creatinine 0.96 0.87 Glucose 113 H 100 H Calcium 10.8 H 9.9 Liver Function 06/06/23 Range/Units 06:01 Albumin 2.6 L (3.4-5.0) gm/dl Diagnostic Findings Chest CT 06/05/23 18:25 Exam(s): CT CHEST Without Contrast EXAM: CT Chest Without Intravenous Contrast CLINICAL HISTORY: Reason for exam: rule out mets, +Ca and back pain. TECHNIQUE: Axial computed tomography images of the chest without intravenous contrast. Automated exposure control was utilized for the study. A dose lowering technique was utilized adhering to the principles of ALARA. COMPARISON: Chest x-ray from June 04, 2023 FINDINGS: Lungs: There is partial visualization of a large mass lesion measuring at least 22 cm occupying the entire right liver lobe. There is mild, 3 cm elevation of the right diaphragm and a trace amount of right lung base subsegmental atelectasis. No pulmonary mass or nodule is identified. Pleural space: Unremarkable. No pneumothorax. No significant effusion. Heart: Mild mitral and coronary calcification is present. No pericardial effusion. Bones/joints: Mild to moderate multilevel osteophytosis throughout the mid to lower thoracic spine. No acute fracture or destructive bone lesion is seen. No dislocation. Soft tissues: Unremarkable. Vasculature: Unremarkable. No thoracic aortic aneurysm. Lymph nodes: Unremarkable. No enlarged lymph nodes. IMPRESSION: 1. No pulmonary mass or nodule is identified. 2. There is partial visualization of a large mass lesion measuring at least 22 cm occupying the entire right liver lobe. There is mild, 3 cm elevation of the right diaphragm and a trace amount of right lung base subsegmental atelectasis. Electronically signed by: Jeff Mclain MD 06/05/23 21:36 PM Medications Administered Current Inpatient Medications Acetaminophen (Acetaminophen 325 Mg Tab) 650 mg PO Q4H PRN PRN Reason: Pain or Fever Stop: 07/04/23 20:07 Acetaminophen/Codeine Phosphate (Acetaminophen W/Codeine #3 1 Tab) 1 tab PO Q4H PRN PRN Reason: severe pain, 6+ Stop: 07/06/23 08:16 Magnesium Oxide (Magnesium Oxide 400 Mg Tab) 200 mg PO DAILY [facility] Stop: 07/05/23 08:59 Last Admin: 06/06/23 07:57 Dose: 200 mg Potassium Chloride (Potassium Chloride Crtab 20 Meq Tabcr) 20 meq PO QAM [facility] Stop: 07/05/23 08:59 Last Admin: 06/06/23 07:59 Dose: 20 meq Potassium Phosphate (Pot Phosphate Monobasic W/ Sod Tab) 1 tab PO QID [facility] Stop: 07/06/23 08:59
[2023-06-06] MEDS: POT PHOSPHATE MONOBASIC W/ SOD TAB PO SCH ×4 (09:50→20:13)
[2023-06-06] MEDS: ACETAMINOPHEN W/CODEINE #3 1 TAB PO PRN ×2 (09:50→13:54)
[2023-06-06] MEDS: ACETAMINOPHEN 325 MG TAB PO PRN ×2 (15:12→22:27)
[2023-06-06] MEDS ORDERED: oxyCODONE HCL IR 5 MG TAB (IMMEDIATE RELEASE) PO PRN (15:24)
[2023-06-07 05:17] LABS: Hematocrit (blood only) 38.3 % (37.0-47.0); Hemoglobin 12.6 g/dl (12.0-16.0); Mean Corpuscular Hgb Conc 32.9 g/dL (32.0-36.0); Mean Corpuscular Volume 91.2 fL (80.0-100.0); Mean Platelet Volume 10.8 fL (9.4-12.4); Platelet Count 110 K/uL (130-400); RDW Standard Deviation 56.3 fL (36.4-46.3); White Blood Count 4.66 K/ul (4.8-10.8)
[2023-06-07 05:32] LABS: Albumin Level 2.7 gm/dl (3.4-5.0); BUN Creatinine Ratio 36.6 (10-20); Calcium 9.2 mg/dl (8.6-10.3); Creatinine Clr Calc Pharmacy 53.6 ml/min; Est GFR (African American) 82.9 ml/min; Est GFR (Non-African American) 71.5 ml/min; Phosphorus 3.1 mg/dl (2.5-4.9); Potassium 4.5 mmol/L (3.5-5.1)
[2023-06-07] MEDS: MAGNESIUM OXIDE 400 MG TAB PO SCH (08:28)
[2023-06-07] MEDS: POT PHOSPHATE MONOBASIC W/ SOD TAB PO SCH (08:28)
[2023-06-07] MEDS: POTASSIUM CHLORIDE CRTAB 20 MEQ TABCR PO SCH (08:29)
[2023-06-07] MEDS: ACETAMINOPHEN 325 MG TAB PO PRN (11:49)
--- NOTE | 2023-06-07 12:47 | Discharge Summary ---
Discharge Summary Date of Service June 07, 2023 Notes For Next Care Provider Medication Changes From Visit no changes Admission HPI Per Admitting Provider 72-year-old female with PMH liver mass suggestive of metastatic adenocarcinoma, unknown primary currently not receiving treatment, recurrent ascites requiring weekly paracenteses, and other problem listed below who presents to the ED for evaluation of generalized weakness and confusion. History is obtained from the patient at the bedside as well as review of outpatient PCP, oncology, GI records. Patient reports that over the past 2 days, she has noticed increasing generalized weakness and confusion. Patient was at her weekly paracenteses appointment today and was referred to the ED for further evaluation. Patient reports she has a poor appetite. She denies abdominal pain, nausea, vomiting, diarrhea. No other recent illnesses, fevers, chills. She denies chest pain or shortness of breath. No lightheadedness, dizziness, diaphoresis, syncopal events. She denies urinary symptoms. In the ED, labs show calcium 12.2. ED discussed case with oncology who recommended a dose of IV zoledronic acid. Patient also was given IVF. Principal Dx & Hospital Course #1 = Principal Diagnosis (1) Hypercalcemia: moderate 12.8 corrected calcium on admission. She is less symptomatic today and Ca level has normalized after IVF and zometa. Zometa administered 06/04 Cont to trend calcium and support her cancer pain Encouraged her to move around more today. (2) Hypotension: multifactorial related to poor PO intake, hepatic disease with ascites, and possibly a side effect from narcotics. 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 She is under palliative care as outpatient and not pursuing treatments. Back pain has resolved. CT chest yesterday without any evidence of fracture or lytic lesion in spine. This result was shared with patient and her . Recent PET scan reveals a new met focus in her spine S3. Cont per oncology and palliative. I did discuss rad onc as an option if she were to experience severe spine or bony pain from mets. (4) Liver mass: History of liver mass suggestive of metastatic adenocarcinoma, unknown primary. Patient elected to not receive chemotherapy. She does require weekly paracenteses --last paracentesis for 3.6 L on 06/[address] Christos Dangelo (5) Unspecified severe protein-calorie malnutrition: regular diet unrestricted. RD ordered additional snacks, cont to encourage PO intake. (6) Elevated TSH: TSH 7.0 with normal T4 Outpatient follow-up DVT PROPHYLAXIS-pt refuses Lovenox DNR/DNI Dispo-to home when improves clinically. Likely tomorrow. PT evaluated yesterday and ok to return home with support. I communicated with him by phone today and updated him on the plan. All questions were answered to his satisfaction. I spent a total [id number] coordinating, documenting, and providing care for this patient excluding time spent in the performance of separately billed services Caryl Del Castillo DO [facility] Hospitalist Discharge Exam CONSTITUTIONAL: thin, frail, vitals as above, generally appears chronically ill, brighter and more energetic today. EYES: normal conjunctivae, no scleral icterus ENT: external ear and nose normal, MMM NECK: trachea midline, RESPIRATORY: clear to auscultation bilaterally, no crackles, rales or wheezes, normal respiratory effort CARDIOVASCULAR: regular rate and rhythm, S1 and 2 heard without murmurs, gallops or rubs, no JVD, no peripheral edema CHEST: inspection of chest was normal GASTROINTESTINAL: soft, nontender, ND, no guarding MUSCULOSKELETAL: strength 5/5 throughout, sits up with some assistance needed, head is normocephalic and atraumatic SKIN: warm and dry NEUROLOGIC: CN 2-12 grossly intact, no sensory deficit, normal cognition, normal speech, no tremor PSYCHIATRIC: alert cooperative and oriented but is slow to complete her thoughts, improved mentation compared to yesterday. Updated Medication List Medication Instructions Recorded Confirmed Type furosemide 40 mg tablet 40 mg PO QAM 06/04/23 06/04/23 History magnesium oxide 250 mg PO DAILY 06/04/23 06/04/23 History oxycodone-acetaminophen 5 mg-325 1 tab PO Q4H PRN Pain 06/04/23 06/04/23 History mg tablet potassium chloride 20 mEq 20 meq PO QAM 06/04/23 06/04/23 History tablet,extended release(part/cryst) Hospital Stay Data Consultations 06/04/23 17:04 ED Decision to Admit Stat Diagnostic Imagining Performed 06/04/23 14:38 CT head/brain wo con Stat 06/04/23 14:39 CT abd pelvis wo con Stat 06/05/23 18:25 CT chest diagnostic wo con Routine Pending Results Patient Have Any Pending Studies at Discharge: No Discharge Instructions Given to Patient (Per Discharging Provider) Please take all medications as instructed on discharge list below. You were found to have an elevated calcium level which contributed to your symptoms. This is now corrected, and was probably related to your cancer. Please followup with your Oncologist to discuss if future treatments are needed. It is recommended that you see your primary care provider within the net week to ensure you are feeling well since returning home. Also, this will be a good time to discuss alternatives to narcotics for controlling your pain. Please feel free to take tylneol up to 3000mg in 24 hours for your pain as needed. Please ensure that Tylenol (acetaminophen) from all sources is no more than this limit as there are pain medications that also contain acetaminophen. It was a pleasure taking care of you! Please call if you have any questions or problems. You can reach a [facility] hospitalist on duty at [facility] 24 hours a day by calling [phone]. Take care of yourself. Caryl Del Castillo, [facility]
== END 2023-06-07 16:09 | disposition home or self-care (01) | DRG 640 ==
LOC: 4W 13:36 → ED 13:36 → SUATTDRO 16:47 → 4W 18:54

== ENCOUNTER 2023-06-15 00:24 | Inpatient (IN) ==
[2023-06-15 01:19] LABS: Basophils # (auto) 0.01 K/uL (0-0.2); Basophils % (auto) 0.2 %; Eosinophils # (auto) 0.02 K/uL (0-0.50); Eosinophils % (auto) 0.3 %; Hematocrit (blood only) 37.1 % (37.0-47.0); Immature Granulocytes # (auto) 0.06 K/uL (0.01-0.20); Lymphocytes # (auto) 0.74 K/uL (1.2-3.4); Lymphocytes % (auto) 12.4 %; Mean Corpuscular Hemoglobin 29.4 pg (25.0-34.0); Mean Corpuscular Hgb Conc 32.3 g/dL (32.0-36.0); Mean Corpuscular Volume 90.9 fL (80.0-100.0); Mean Platelet Volume 10.3 fL (9.4-12.4); Monocytes # (auto) 0.47 K/uL (0.11-0.59); Monocytes % (auto) 7.9 %; Neutrophils # (auto) 4.68 K/uL (1.40-6.50); Neutrophils % (auto) 78.2 %; Platelet Count 169 K/uL (130-400); RDW Coefficient of Variation 18.5 % (11.5-14.5); RDW Standard Deviation 57.3 fL (36.4-46.3); Red Blood Count 4.08 M/uL (4.20-5.40); White Blood Count 5.98 K/ul (4.8-10.8)
[2023-06-15 01:26] LABS: Albumin Globulin Ratio 1.1 (0.9-2); Albumin Level 3.1 gm/dl (3.4-5.0); BUN Creatinine Ratio 62.9 (10-20); Bilirubin,Total 0.7 mg/dl (0.2-1.0); Creatinine Clr Calc Pharmacy 41.8 ml/min; Est GFR (African American) 61.4 ml/min; Globulin 2.9 gm/dl (2.5-4.0)
[2023-06-15] MEDS ORDERED: ONDANSETRON INJ 2 MG/ML 2 ML VIAL IV STA (01:34)
[2023-06-15] MEDS: fentaNYL citrate PF 100 MCG/2 ML VIAL IV PRN ×3 (01:45→05:01)
[2023-06-15] MEDS ORDERED: OPTIRAY 320 100ml IV ONE (02:06)
[2023-06-15] MEDS ORDERED: CALCIUM CARBONATE 500 MG CHEWABLE TAB ONE (02:08)
[2023-06-15] MEDS: SODIUM CHLORIDE 0.9% 1000ML 1,000 ML IV SCH ×3 (02:37→23:29)
--- NOTE | 2023-06-15 03:34 | Emergency Department Note ---
Impression & Plan Abdominal pain, Liver mass, Acute hyponatremia ED Provider Note INFORMANT: Patient and family ED PROVIDER(S): Peewee Lui MD CHIEF COMPLAINT: Abdominal pain PLAN: Disposition: Admitted Condition: Good Outpatient prescription management: none Referral: None MEDICAL DECISION MAKING: Patient presented because of abdominal pain. Of examination revealed right- sided pain and a palpable liver. Her history is concerning for liver mass. Patient had an IV established. She was gently hydrated and given Zofran. She was also treated with IV fentanyl as she has had some adverse reactions with oral narcotics in the past. Patient was sent for CT imaging. Her CBC is unre markable. Chemistry panel reveals an elevated BUN. Patient does have hyponatremia. LFTs mildly elevated but stable. CT imaging reveals ascites as well as a significant liver mass. Patient will need further management in the hospital. Consultation was made with the [facility] hospitalist service. Patient was evaluated in the ER admitted for further management Discussed with assistant guest services manager After review of the information above and other included data, I feel the patient requires admission. Triage Nursing notes reviewed and agree them. Vital Signs: reviewed and remarkable for no significant abnormalities Prior /Outside records reviewed: Prior hospitalization record reviewed. Differential diagnosis: Complication of liver mass, Renal colic, UTI, appendicitis, diverticulitis, mesenteric ischemia, aortic pathology, infections, inflammatory bowel disease, PUD, biliary pathology, SBP, as well as other pathologies. Diagnostics, as interpreted by me: ECG: Twelve-lead ECG was sinus bradycardia 50 bpm. Poor R wave progression. Lo w voltage QRS. No ST elevation. Cardiac Monitoring: Cardiac monitoring ordered by me: The patient was placed on continuous cardiac monitoring and observed. It revealed a normal sinus rhythm at 60 beats per minute without ectopy or evidence of dysrhythmia. Medical decision rules: none Imaging studies: CT scan as above. I refer you to the EMR for further details. HPI: The patient is a 72 year old female with history of liver mass who presents to the Emergency Room with complaints of acute abdominal pain that started earlier today. Patient notes her pain is in the epigastrium and somewhat in her back. Patient also has a history of ascites and has been getting regular paracenteses performed. Last 1 was done 4 days ago. Patient does feel like she is filling back up with fluid. The patient also notes the following associated symptoms, fatigue and nausea. The patient has found no relieving factors. Current pain is rated as 7/10. Pt denies LOC, headache, fevers, chills, diaphoresis, visual changes, neck pain, chest pain, breathing difficulties, vomiting melena, hematochezia, urinary symptoms, numbness, weakness, lymphadenopathy, rash, or other complaints. PAST MEDICAL HISTORY: See Below, liver mass, ascites PAST SURGICAL HISTORY: See Below, SOCIAL HISTORY: See Below, HOME MEDICATIONS: See Below ALLERGIES: See Below VITALS: See Below PHYSICAL EXAMINATION: GENERAL: Awake, alert, uncomfortable-appearing, in no distress HENT: Normocephalic, atraumatic. Oropharynx unremarkable. EYES: Normal conjunctiva. Sclera non-icteric. NECK: Inspection normal. Non-tender. Supple. No nuchal rigidity. FROM. No masses. RESPIRATORY: Clear to auscultation. No wheezes. No rales. Normal respiratory effort. CARDIAC: Borderline bradycardic rate. Normal rhythm. No murmurs. No rubs. Extremities warm and well perfused. Pulses equal. No JVD. GI: Soft, minimally-distended. Right upper quadrant and epigastric tenderness to palpation. No rebound or guarding. Enlarged liver appreciated. Mild fluid wave. RECTAL: Deferred. MUSCULOSKELETAL: Atraumatic. Chest examination reveals no tenderness. The back is symmetrical on inspection without obvious abnormality. There is right CVA tenderness to palpation. No joint edema. LOWER EXTREMITIES: Calves are equal size bilaterally and non-tender. No edema. No discoloration. NEURO: Normal sensorium. No sensory or motor deficits noted. SKIN: No rash or jaundice noted. Past Med/Surg History Medical History Adenocarcinoma History of PSVT (paroxysmal supraventricular tachycardia) Liver mass Surgical History History of appendectomy History of colonoscopy with polypectomy History of radiofrequency ablation procedure for cardiac arrhythmia Family History Sister Lung cancer Social History Smoking Status: Never smoker Second Hand Exposure: No; Do You Dip or Chew Tobacco: No; Tobacco Cessation Education Requested by Patient: No Hx Alcohol Use: No Hx Substance Use: No Preferred Language: Libyan Communication Ability: Effective Adult Education Teacher Required: No Beliefs That Will Affect Care: None marital status: Current Living Situation: Spouse Current Living Situation Comment: ranch home Other Information That Helps Us Care for You: No Feels Safe at Home: Yes Safety Concerns: Feels Safe At This Time Assistive Devices: Walker Assistive Devices Comment: rollator walker Allergies Allergies Allergy/AdvReac Type Severity Reaction Status Date / Time No Known Allergies Allergy Unverified 06/04/23 17:19 Home Meds Home Medications Medication Instructions Recorded Confirmed furosemide 40 mg tablet 40 mg PO QAM 06/04/23 06/15/23 magnesium oxide 250 mg PO DAILY 06/04/23 06/15/23 oxycodone-acetaminophen 5 mg-325 1 tab PO Q4H PRN Pain 06/04/23 06/15/23 mg tablet potassium chloride 20 mEq 20 meq PO QAM 06/04/23 06/15/23 tablet,extended release(part/cryst) acetaminophen 300 mg-codeine 30 mg 1 tab PO Q4 PRN Severe Pain (Scale 06/15/23 06/15/23 tablet Score 7-10) hydrocodone 5 mg-acetaminophen 325 1 tab PO UD PRN Pain 06/15/23 06/15/23 mg tablet Results & Data (ED) Vital Signs Vital Signs - 24 hr 06/15/23 00:31 06/15/23 01:00 06/15/23 01:27 Temperature 36.4 C L Temperature Source Temporal Artery Scan Pulse Rate 62 59 L 57 L Pulse Rate [Apical] Pulse Rhythm Regular Regular Pulse Rhythm [Apical] Pulse Strength Normal Pulse Strength [Apical] Respiratory Rate 18 20 Respiratory Effort / Characteristics Non-Labored Spontaneous Respiratory Depth Normal Respiratory Pattern Regular Blood Pressure 116/69 Blood Pressure [Right Arm] Blood Pressure Mean 84 Blood Pressure Mean [Right Arm] Blood Pressure Position Sitting Pulse Oximetry 100 100 Oxygen Delivery Method Room Air Room Air Sepsis Recent Fever Within 48 Hours No Sepsis New/Unexplained Change in Mental Status No Sepsis Action Taken by Nursing No Action Required 06/15/23 03:00 Temperature Temperature Source Pulse Rate Pulse Rate [Apical] 58 L Pulse Rhythm Pulse Rhythm [Apical] Regular Pulse Strength Pulse Strength [Apical] Normal Respiratory Rate 16 Respiratory Effort / Characteristics Non-Labored Spontaneous Respiratory Depth Normal Respiratory Pattern Regular Blood Pressure Blood Pressure [Right Arm] 114/57 L Blood Pressure Mean Blood Pressure Mean [Right Arm] 76 Blood Pressure Position Pulse Oximetry 99 Oxygen Delivery Method Room Air Sepsis Recent Fever Within 48 Hours Sepsis New/Unexplained Change in Mental Status Sepsis Action Taken by Nursing Laboratory Data 06/15/23 00:50 06/15/23 00:50 Lab Results 06/15/23 06/15/23 06/15/23 Range/Units 00:50 00:50 03:28 WBC 5.98 (4.8-10.8) K/ul RBC 4.08 L (4.20-5.40) M/uL Hgb 12.0 (12.0-16.0) g/dl Hct 37.1 (37.0-47.0) % MCV 90.9 (80.0-100.0) fL MCH 29.4 (25.0-34.0) pg MCHC 32.3 (32.0-36.0) g/dL RDW Std Deviation 57.3 H (36.4-46.3) fL RDW Coeff of [place] 18.5 H (11.5-14.5) % Plt Count 169 (130-400) K/uL MPV 10.3 (9.4-12.4) fL Immature Gran % (Auto) 1.0 % Neut % (Auto) 78.2 % Lymph % (Auto) 12.4 % [place] % (Auto) 7.9 % Eos % (Auto) 0.3 % Baso % (Auto) 0.2 % Neut # (Auto) 4.68 (1.40-6.50) K/uL Lymph # (Auto) 0.74 L (1.2-3.4) K/uL Hawkins # (Auto) 0.47 (0.11-0.59) K/uL Eos # (Auto) 0.02 (0-0.50) K/uL Baso # (Auto) 0.01 (0-0.2) K/uL Immature Gran # (Auto) 0.06 (0.01-0.20) K/uL Sodium 126 L (136-145) mmol/L Potassium 5.0 (3.5-5.1) mmol/L Chloride 100 (98-107) mmol/L Carbon Dioxide 16 L (21-32) mmol/L Anion Gap 10 (3-11) BUN 66 H (6-23) mg/dl Creatinine 1.05 (0.6-1.2) mg/dl Est Cr Clr Drug Dosing 41.8 ml/min Est GFR ( Amer) 61.4 ml/min Est GFR (Non-Af Amer) 53.0 ml/min BUN/Creatinine Ratio 62.9 H (10-20) Glucose 103 H (70-99(Fasting)) mg/dl Calcium 8.0 L (8.6-10.3) mg/dl Total Bilirubin 0.7 (0.2-1.0) mg/dl AST 66 H (13-39) U/L ALT 27 (7-52) U/L Alkaline Phosphatase 283 H (34-104) U/L Total Protein 6.0 (6.0-8.3) gm/dl Albumin 3.1 L (3.4-5.0) gm/dl Globulin 2.9 (2.5-4.0) gm/dl Albumin/Globulin Ratio 1.1 (0.9-2) Lipase 79 (11-82) U/L Urine Color Yellow Urine Appearance Clear (Clear) Urine pH 5.0 (4.5-7.5) Ur Specific [place] 1.024 (1.000-1.030) Urine Protein Negative (Negative) Urine Glucose (UA) Negative (Negative) Urine Ketones Negative (Negative) Urine Blood Negative (Negative) Urine Nitrite Negative (Negative) Urine Bilirubin Negative (Negative) Urine Urobilinogen Negative (Negative) Ur Leukocyte Esterase Negative (Negative) Administered Medications Sodium Chloride (Nss 1000ml) 1,000 mls @ 50 mls/hr IV .Q20H [facility] Stop: 07/15/23 01:44 Last Admin: 06/15/23 03:41 Dose: 50 mls/hr Documented By: Admin: 06/15/23 02:37 Dose: Not Given Documented By: YE Discontinued Medications Calcium Carbonate (Calcium Carbonate 500 Mg Chewable Tab) Confirm Administered Dose 1,000 mg .ROUTE .STK-MED ONE Stop: 06/15/23 02:09 Last Admin: 06/15/23 02:10 Dose: 1,000 mg Documented By: YE Fentanyl Citrate (Fentanyl Citrate Pf 100 Mcg/2 Ml Vial) 25 mcg IV Q15M PRN PRN Reason: Pain Stop: 06/29/23 01:35 Last Admin: 06/15/23 05:01 Dose: 25 mcg Documented By: Admin: 06/15/23 03:56 Dose: 25 mcg Documented By: Admin: 06/15/23 01:45 Dose: 25 mcg Documented By: YE Ioversol (Optiray 320 100ml) 92 ml IV ONCE ONE Stop: 06/15/23 02:07 Last Admin: 06/15/23 02:06 Dose: 92 ml Documented By: RAVI Ondansetron HCl (Ondansetron Inj 2 Mg/Ml 2 Ml Vial) 4 mg IV NOW STA Stop: 06/15/23 01:35 Last Admin: 06/15/23 01:45 Dose: 4 mg Documented By: YE Imaging Data Radiologist's Impression: Abdomen/Pelvis CT 06/15/23 01:34 Exam(s): CT ABDOMEN + PELVIS With Contrast IV Amt: 92 cc's optiray 320 EXAM: CT Abdomen and Pelvis With Intravenous Contrast CLINICAL HISTORY: Reason for exam: abd pain, liver mass, ascites. TECHNIQUE: Axial computed tomography images of the abdomen and pelvis with intravenous contrast. CTDI is 18.96 mGy and DLP is 1010.67 mGy-cm. Automated exposure control was utilized for the study. A dose lowering technique was utilized adhering to the principles of ALARA. CONTRAST: Patient received 92 cc's optiray 320 of IV contrast COMPARISON: June 04, 2023 FINDINGS: Lung bases: Small amount of right lung base atelectasis. ABDOMEN: Liver: There is a very large heterogenous mass lesion occupying the right lobe of the liver, caudate lobe, and the central aspect of the left liver lobe measuring approximate 22 cm transverse by 17 cm AP by 17 cm craniocaudad. The intrahepatic IVC is surrounded and compressed by the mass measuring 6 mm transverse diameter. Gallbladder and bile ducts: Unremarkable. No calcified stones. No ductal dilation. Pancreas: Unremarkable. No mass. No ductal dilation. Spleen: See below. Adrenals: Unremarkable. No mass. Kidneys and ureters: Unremarkable. No solid mass. No hydronephrosis. Stomach and bowel: Unremarkable. No obstruction. No mucosal thickening. PELVIS: Appendix: No findings to suggest acute appendicitis. Bladder: Unremarkable. No mass. Reproductive: Unremarkable as visualized. ABDOMEN and PELVIS: Intraperitoneal space: There is a moderate to large amount of ascites throughout the abdomen and pelvis. Bowel loops are nondilated. There is a mild edema of the wall of the cecum and right colon, possibly passive congestion. No pneumoperitoneum or abscess is seen. Bones/joints: Mild to moderate multilevel degenerative changes throughout the spine. No acute fracture or subluxation is seen. Multiple small lytic lesions are seen in the spinous process of L3 which could represent metastasis or an osseous hemangioma. Soft tissues: Unremarkable. Vasculature: The portal vein is mildly dilated measuring 16 mm. The right hepatic vein is partially thrombosed the left hepatic vein is patent. There is a recanalized paraumbilical vein as well as splenomegaly indicating portal hypertension. Esophageal varices are present. The abdominal aorta is mildly calcified but nondilated. Lymph nodes: Unremarkable. No enlarged lymph nodes. IMPRESSION: 1. There is a very large heterogenous mass lesion occupying the right lobe of the liver, caudate lobe, and the central aspect of the left liver lobe measuring approximate 22 cm transverse by 17 cm AP by 17 cm craniocaudad. 2. The portal vein is mildly dilated measuring 16 mm. The right hepatic vein is partially thrombosed the left hepatic vein is patent. There is a recanalized paraumbilical vein as well as splenomegaly indicating portal hypertension. Esophageal varices are present. 3. There is a moderate to large amount of ascites throughout the abdomen and pelvis. 4. Bowel loops are nondilated. There is a mild edema of the wall of the cecum and right colon, possibly passive congestion. No pneumoperitoneum or abscess is seen. Electronically signed by: Jeff Mclain MD 06/15/23 03:41 AM Discharge Plan Visit Data Chief Complaint: Abdominal Pain Stated Complaint: CANCER PATIENT,BACK AND ABD PAIN ED Provider: Peewee Lui Discharge Problem: Abdominal pain, Liver mass, Acute hyponatremia Patient Disposition: Admitted As Inpatient Discharge Instructions Interventions: ED Discharge Assessment Last Done: 06/15/23 05:03
[2023-06-15 03:37] LABS: Appearance Urine Clear (Clear); Bilirubin Urine Negative (Negative); Blood Urine Negative (Negative); Color Urine Yellow; Glucose Urine UA Negative (Negative); Ketones Urine Negative (Negative); Leukocyte Esterase Urine Negative (Negative); Nitrite Urine Negative (Negative); Protein Urine Negative (Negative); Specific Gravity Urine 1.024 (1.000-1.030); Urobilinogen Urine Negative (Negative)
--- NOTE | 2023-06-15 03:42 | CT Scan Report ---
Exam(s): CT ABDOMEN + PELVIS With Contrast IV Amt: 92 cc's optiray 320 EXAM: CT Abdomen and Pelvis With Intravenous Contrast CLINICAL HISTORY: Reason for exam: abd pain, liver mass, ascites. TECHNIQUE: Axial computed tomography images of the abdomen and pelvis with intravenous contrast. CTDI is 18.96 mGy and DLP is 1010.67 mGy-cm. Automated exposure control was utilized for the study. A dose lowering technique was utilized adhering to the principles of ALARA. CONTRAST: Patient received 92 cc's optiray 320 of IV contrast COMPARISON: June 04, 2023 FINDINGS: Lung bases: Small amount of right lung base atelectasis. ABDOMEN: Liver: There is a very large heterogenous mass lesion occupying the right lobe of the liver, caudate lobe, and the central aspect of the left liver lobe measuring approximate 22 cm transverse by 17 cm AP by 17 cm craniocaudad. The intrahepatic IVC is surrounded and compressed by the mass measuring 6 mm transverse diameter. Gallbladder and bile ducts: Unremarkable. No calcified stones. No ductal dilation. Pancreas: Unremarkable. No mass. No ductal dilation. Spleen: See below. Adrenals: Unremarkable. No mass. Kidneys and ureters: Unremarkable. No solid mass. No hydronephrosis. Stomach and bowel: Unremarkable. No obstruction. No mucosal thickening. PELVIS: Appendix: No findings to suggest acute appendicitis. Bladder: Unremarkable. No mass. Reproductive: Unremarkable as visualized. ABDOMEN and PELVIS: Intraperitoneal space: There is a moderate to large amount of ascites throughout the abdomen and pelvis. Bowel loops are nondilated. There is a mild edema of the wall of the cecum and right colon, possibly passive congestion. No pneumoperitoneum or abscess is seen. Bones/joints: Mild to moderate multilevel degenerative changes throughout the spine. No acute fracture or subluxation is seen. Multiple small lytic lesions are seen in the spinous process of L3 which could represent metastasis or an osseous hemangioma. Soft tissues: Unremarkable. Vasculature: The portal vein is mildly dilated measuring 16 mm. The right hepatic vein is partially thrombosed the left hepatic vein is patent. There is a recanalized paraumbilical vein as well as splenomegaly indicating portal hypertension. Esophageal varices are present. The abdominal aorta is mildly calcified but nondilated. Lymph nodes: Unremarkable. No enlarged lymph nodes. IMPRESSION: 1. There is a very large heterogenous mass lesion occupying the right lobe of the liver, caudate lobe, and the central aspect of the left liver lobe measuring approximate 22 cm transverse by 17 cm AP by 17 cm craniocaudad. 2. The portal vein is mildly dilated measuring 16 mm. The right hepatic vein is partially thrombosed the left hepatic vein is patent. There is a recanalized paraumbilical vein as well as splenomegaly indicating portal hypertension. Esophageal varices are present. 3. There is a moderate to large amount of ascites throughout the abdomen and pelvis. 4. Bowel loops are nondilated. There is a mild edema of the wall of the cecum and right colon, possibly passive congestion. No pneumoperitoneum or abscess is seen. Electronically signed by: Jeff Mclain MD 06/15/23 03:41 AM
--- NOTE | 2023-06-15 05:20 | History & Physical Report ---
Date of Service June 15, 2023 Assessment & Plan (1) Abdominal pain: Plan: 72-year-old female with PMH of prediabetes, COVID, liver mass suggestive of metastatic adenocarcinoma, unknown primary currently not receiving treatment, recurrent ascites requiring weekly paracenteses last paracentesis couple of days ago as per patient but fluid in the abdomen is filling up fast. She is having severe abdominal pain 8 / 10 in severity radiating to back which prompted her to come to the ER. Abdominal pain Most likely from her liver mass Pain control Monitor in the hospital Liver mass Most likely metastatic adenocarcinoma unknown primary Patient decided for no chemotherapy Following with palliative care and also heme-onc Dr. Christos Dangelo Plan for hospice care Ascites Secondary to malignancy Currently getting weekly paracentesis but seems fluid is filling up fast Palliative care suggested Pleurx catheter prior to hospice care Patient thinking about it Can consider placing during this admission Patient needs paracentesis Continue home Lasix monitor for volume overload Hyponatremia Sodium 126 Most likely from ongoing malignancy Also patient" poor p.o. intake Getting gentle fluids normal saline 50 mill per hour We will follow urine osmole, serum osmolality and urine sodium BMP every 6 hours Nephro consult History of hypercalcemia Last admission received Zometa and fluids Currently levels okay DVT prophylaxis SCDs and heparin subcu Disposition medical floor CODE STATUS DNR/DNI as per my discussion with the patient (2) Acute hyponatremia: History of Present Illness Chief Complaint: Abdominal pain and back pain Primary Care Provider: Bernarda Recinos MD 72-year-old female with PMH of prediabetes, COVID, liver mass suggestive of metastatic adenocarcinoma, unknown primary currently not receiving treatment, recurrent ascites requiring weekly paracenteses last paracentesis couple of days ago as per patient but fluid in the abdomen is filling up fast. She is having severe abdominal pain 8 / 10 in severity radiating to back which prompted her to come to the ER. She is also following with [facility] palliative care. There was a discussion of hospice care. Patient states her son is going to discuss with hospice on Friday. Palliative care also recommended Pleurx catheter prior to hospice care. Patient's now thinking about it. Was nauseous but no vomiting. On and off diarrhea. No chest pain. No shortness of breath. No headaches. No fevers. No cough. Appetite is poor. Walks with walker. Currently hemodynamically stable Allergies Allergy/AdvReac Type Severity Reaction Status Date / Time No Known Allergies Allergy Unverified 06/04/23 17:19 Home Medications Medication Instructions Recorded Confirmed Type furosemide 40 mg tablet 40 mg PO QAM 06/04/23 06/15/23 History magnesium oxide 250 mg PO DAILY 06/04/23 06/15/23 History oxycodone-acetaminophen 5 mg-325 1 tab PO Q4H PRN Pain 06/04/23 06/15/23 History mg tablet potassium chloride 20 mEq 20 meq PO QAM 06/04/23 06/15/23 History tablet,extended release(part/cryst) acetaminophen 300 mg-codeine 30 mg 1 tab PO Q4 PRN Severe Pain (Scale 06/15/23 06/15/23 History tablet Score 7-10) hydrocodone 5 mg-acetaminophen 325 1 tab PO UD PRN Pain 06/15/23 06/15/23 History mg tablet Past Med/Surg History Medical History Adenocarcinoma History of PSVT (paroxysmal supraventricular tachycardia) Liver mass Surgical History History of appendectomy History of colonoscopy with polypectomy History of radiofrequency ablation procedure for cardiac arrhythmia Family History Sister Lung cancer Social History Smoking Status: Never smoker Second Hand Exposure: No; Do You Dip or Chew Tobacco: No; Tobacco Cessation Education Requested by Patient: No Hx Alcohol Use: No Hx Substance Use: No Preferred Language: Yi Communication Ability: Effective Cap Sewer Required: No Beliefs That Will Affect Care: None marital status: Current Living Situation: Spouse Current Living Situation Comment: ranch home Other Information That Helps Us Care for You: No Feels Safe at Home: Yes Safety Concerns: Feels Safe At This Time Assistive Devices: Walker Assistive Devices Comment: rollator walker Review of Systems Review of Systems: All systems reviewed & are unremarkable except as noted in HPI & below Physical Exam Physical Exam: General- Not in distress Head- atraumatic Eyes- PERRL. ENT- oropharynx clear Neck- supple, no JVD. Lungs- clear to auscultation , no wheezing or crackles. Heart- regular rhythm; no murmur, no gallop. Abdomen- normal bowel sounds, soft, periumbilical tenderness , distended Extremities- lower extremity edema present. no erythema seen. Neuro- alert, oriented x 3; PERRL no facial palsy; no dysarthria;non focal. Skin- warm & dry Results & Data Results & Data Vital Signs (Past 12 Hours) Vital Signs Temp Pulse Pulse Resp BP BP Pulse Ox 06/15/23 05:03 60 16 117/63 99 06/15/23 03:00 58 L 16 114/57 L 99 06/15/23 01:27 57 L 06/15/23 01:00 59 L 20 100 06/15/23 00:31 36.4 C L 62 18 116/69 100 O2 Del Method 06/15/23 05:03 Room Air 06/15/23 03:00 Room Air 06/15/23 01:27 06/15/23 01:00 Room Air 06/15/23 00:31 Room Air Diagnostic Findings Laboratory Results WBC 5.98 K/ul (4.8-10.8) 06/15/23 00:50 RBC 4.08 M/uL (4.20-5.40) L 06/15/23 00:50 Hgb 12.0 g/dl (12.0-16.0) 06/15/23 00:50 Hct 37.1 % (37.0-47.0) 06/15/23 00:50 MCV 90.9 fL (80.0-100.0) 06/15/23 00:50 MCH 29.4 pg (25.0-34.0) 06/15/23 00:50 MCHC 32.3 g/dL (32.0-36.0) 06/15/23 00:50 RDW Std Deviation 57.3 fL (36.4-46.3) H 06/15/23 00:50 RDW Coeff of [place] 18.5 % (11.5-14.5) H 06/15/23 00:50 Plt Count 169 K/uL (130-400) 06/15/23 00:50 MPV 10.3 fL (9.4-12.4) 06/15/23 00:50 Immature Gran % (Auto) 1.0 % 06/15/23 00:50 Neut % (Auto) 78.2 % 06/15/23 00:50 Lymph % (Auto) 12.4 % 06/15/23 00:50 Haines % (Auto) 7.9 % 06/15/23 00:50 Eos % (Auto) 0.3 % 06/15/23 00:50 Baso % (Auto) 0.2 % 06/15/23 00:50 Neut # (Auto) 4.68 K/uL (1.40-6.50) 06/15/23 00:50 Lymph # (Auto) 0.74 K/uL (1.2-3.4) L 06/15/23 00:50 Haines # (Auto) 0.47 K/uL (0.11-0.59) 06/15/23 00:50 Eos # (Auto) 0.02 K/uL (0-0.50) 06/15/23 00:50 Baso # (Auto) 0.01 K/uL (0-0.2) 06/15/23 00:50 Immature Gran # (Auto) 0.06 K/uL (0.01-0.20) 06/15/23 00:50 Sodium 126 mmol/L (136-145) L 06/15/23 00:50 Potassium 5.0 mmol/L (3.5-5.1) 06/15/23 00:50 Chloride 100 mmol/L (98-107) 06/15/23 00:50 Carbon Dioxide 16 mmol/L (21-32) L 06/15/23 00:50 Anion Gap 10 (3-11) 06/15/23 00:50 BUN 66 mg/dl (6-23) H 06/15/23 00:50 Creatinine 1.05 mg/dl (0.6-1.2) 06/15/23 00:50 Est Cr Clr Drug Dosing 41.8 ml/min 06/15/23 00:50 Est GFR ( Amer) 61.4 ml/min 06/15/23 00:50 Est GFR (Non-Af Amer) 53.0 ml/min 06/15/23 00:50 BUN/Creatinine Ratio 62.9 (10-20) H 06/15/23 00:50 Glucose 103 mg/dl (70-99(Fasting)) H 06/15/23 00:50 Calcium 8.0 mg/dl (8.6-10.3) L 06/15/23 00:50 Total Bilirubin 0.7 mg/dl (0.2-1.0) 06/15/23 00:50 AST 66 U/L (13-39) H 06/15/23 00:50 ALT 27 U/L (7-52) 06/15/23 00:50 Alkaline Phosphatase 283 U/L (34-104) H 06/15/23 00:50 Total Protein 6.0 gm/dl (6.0-8.3) 06/15/23 00:50 Albumin 3.1 gm/dl (3.4-5.0) L 06/15/23 00:50 Globulin 2.9 gm/dl (2.5-4.0) 06/15/23 00:50 Albumin/Globulin Ratio 1.1 (0.9-2) 06/15/23 00:50 Lipase 79 U/L (11-82) 06/15/23 00:50 Urine Color Yellow 06/15/23 03:28 Urine Appearance Clear (Clear) 06/15/23 03:28 Urine pH 5.0 (4.5-7.5) 06/15/23 03:28 Ur Specific [place] 1.024 (1.000-1.030) 06/15/23 03:28 Urine Protein Negative (Negative) 06/15/23 03:28 Urine Glucose (UA) Negative (Negative) 06/15/23 03:28 Urine Ketones Negative (Negative) 06/15/23 03:28 Urine Blood Negative (Negative) 06/15/23 03:28 Urine Nitrite Negative (Negative) 06/15/23 03:28 Urine Bilirubin Negative (Negative) 06/15/23 03:28 Urine Urobilinogen Negative (Negative) 06/15/23 03:28 Ur Leukocyte Esterase Negative (Negative) 06/15/23 03:28 Impressions Abdomen/Pelvis CT 06/15/23 01:34 Exam(s): CT ABDOMEN + PELVIS With Contrast IV Amt: 92 cc's optiray 320 EXAM: CT Abdomen and Pelvis With Intravenous Contrast CLINICAL HISTORY: Reason for exam: abd pain, liver mass, ascites. TECHNIQUE: Axial computed tomography images of the abdomen and pelvis with intravenous contrast. CTDI is 18.96 mGy and DLP is 1010.67 mGy-cm. Automated exposure control was utilized for the study. A dose lowering technique was utilized adhering to the principles of ALARA. CONTRAST: Patient received 92 cc's optiray 320 of IV contrast COMPARISON: June 04, 2023 FINDINGS: Lung bases: Small amount of right lung base atelectasis. ABDOMEN: Liver: There is a very large heterogenous mass lesion occupying the right lobe of the liver, caudate lobe, and the central aspect of the left liver lobe measuring approximate 22 cm transverse by 17 cm AP by 17 cm craniocaudad. The intrahepatic IVC is surrounded and compressed by the mass measuring 6 mm transverse diameter. Gallbladder and bile ducts: Unremarkable. No calcified stones. No ductal dilation. Pancreas: Unremarkable. No mass. No ductal dilation. Spleen: See below. Adrenals: Unremarkable. No mass. Kidneys and ureters: Unremarkable. No solid mass. No hydronephrosis. Stomach and bowel: Unremarkable. No obstruction. No mucosal thickening. PELVIS: Appendix: No findings to suggest acute appendicitis. Bladder: Unremarkable. No mass. Reproductive: Unremarkable as visualized. ABDOMEN and PELVIS: Intraperitoneal space: There is a moderate to large amount of ascites throughout the abdomen and pelvis. Bowel loops are nondilated. There is a mild edema of the wall of the cecum and right colon, possibly passive congestion. No pneumoperitoneum or abscess is seen. Bones/joints: Mild to moderate multilevel degenerative changes throughout the spine. No acute fracture or subluxation is seen. Multiple small lytic lesions are seen in the spinous process of L3 which could represent metastasis or an osseous hemangioma. Soft tissues: Unremarkable. Vasculature: The portal vein is mildly dilated measuring 16 mm. The right hepatic vein is partially thrombosed the left hepatic vein is patent. There is a recanalized paraumbilical vein as well as splenomegaly indicating portal hypertension. Esophageal varices are present. The abdominal aorta is mildly calcified but nondilated. Lymph nodes: Unremarkable. No enlarged lymph nodes. IMPRESSION: 1. There is a very large heterogenous mass lesion occupying the right lobe of the liver, caudate lobe, and the central aspect of the left liver lobe measuring approximate 22 cm transverse by 17 cm AP by 17 cm craniocaudad. 2. The portal vein is mildly dilated measuring 16 mm. The right hepatic vein is partially thrombosed the left hepatic vein is patent. There is a recanalized paraumbilical vein as well as splenomegaly indicating portal hypertension. Esophageal varices are present. 3. There is a moderate to large amount of ascites throughout the abdomen and pelvis. 4. Bowel loops are nondilated. There is a mild edema of the wall of the cecum and right colon, possibly passive congestion. No pneumoperitoneum or abscess is seen. Electronically signed by: Jeff Mclain MD 06/15/23 03:41 AM Code Status & VTE Plan VTE Prophylaxis Plan VTE Prophylaxis will be ordered: Yes
[2023-06-15 07:38] LABS: Basophils # (auto) 0.02 K/uL (0-0.2); Basophils % (auto) 0.5 %; Eosinophils # (auto) 0.01 K/uL (0-0.50); Eosinophils % (auto) 0.3 %; Hemoglobin 11.7 g/dl (12.0-16.0); Immature Granulocytes # (auto) 0.07 K/uL (0.01-0.20); Immature Granulocytes % (auto) 1.8 %; Lymphocytes # (auto) 0.52 K/uL (1.2-3.4); Lymphocytes % (auto) 13.3 %; Mean Corpuscular Hemoglobin 29.8 pg (25.0-34.0); Mean Corpuscular Hgb Conc 32.5 g/dL (32.0-36.0); Mean Corpuscular Volume 91.6 fL (80.0-100.0); Mean Platelet Volume 10.1 fL (9.4-12.4); Monocytes # (auto) 0.28 K/uL (0.11-0.59); Monocytes % (auto) 7.2 %; Neutrophils % (auto) 76.9 %; Platelet Count 164 K/uL (130-400); RDW Coefficient of Variation 18.5 % (11.5-14.5); RDW Standard Deviation 57.4 fL (36.4-46.3); Red Blood Count 3.93 M/uL (4.20-5.40)
[2023-06-15 07:50] LABS: BUN Creatinine Ratio 64.4 (10-20); Calcium 7.9 mg/dl (8.6-10.3); Creatinine Clr Calc Pharmacy 43.5 ml/min; Est GFR (African American) 64.4 ml/min; Est GFR (Non-African American) 55.6 ml/min; Magnesium 2.4 mg/dl (1.7-2.4); Potassium 5.2 mmol/L (3.5-5.1)
[2023-06-15] MEDS: FUROSEMIDE 40 MG TAB PO SCH (07:56)
[2023-06-15] MEDS: MAGNESIUM OXIDE 400 MG TAB PO SCH (07:57)
[2023-06-15] MEDS: HEPARIN SOD 5,000 UNIT/0.5 ML VIAL SQ SCH ×2 (08:01→20:11)
[2023-06-15] MEDS: oxyCODONE HCL IR 5 MG TAB (IMMEDIATE RELEASE) PO PRN (08:17)
[2023-06-15] MEDS ORDERED: POTASSIUM CHLORIDE CRTAB 20 MEQ TABCR PO SCH (09:00)
--- NOTE | 2023-06-15 11:55 | Nephrology Consultation ---
Date of Consultation June 15, 2023 Assessment & Plan (1) Disorder of fluid or electrolyte: chronic hyponatremia worse than recent readings in low 130s and now worsening hyperkalemia w/ k up to 5.6. also w/ worsening ascites and edema. -hold K supplements -will give extra dose lasix x 1 ten mg IV; would also continue OP dose as ordered -started low K diet which hopefully will not have to maintain for long -recheck bmp 1800 already appropriately ordered and will f/u -continue daily po lasix -started FR 1.5L daily -agree w/ possible paracentesis and/or abdominal PleurX History of Present Illness Reason for Consultation: Hyponatremia Requesting Physician: Dr Trejo Attending Physician: Emily Erickson MD History of Present Illness 72 y/o F whom I'm asked to see for hyponatremia was admitted overnight w/ abdominal pain in the setting of presumed malignant and currently untreated liver mass. 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 She is working w/ palliative care and considering hospice as well as PleurX catheter rather than paracentesis to manage ascites. However 06/05 abdominal p ain failing OP meds and rapid reaccumulation of ascitic fluid brought her to ER. some N but no emesis and intermittent diarrhea prior to admission. Presenting sNa was 126 at 0100 today; 127 at 0700; repeat study pending. calcium slightly low. serum osms 295; urine osm 432; rd urine sodium <10. she is getting NS at 50 ML hourly; did not have any bolus or other IVF during admission process. her AM 40 mg lasix po was continued along w/ 20 mEq K. Did have IV con w/ admission CT. Pain is currently controlled in abdomen but slowly starting to recur; no n/v currently; poor po; no sob or cough; no acutely worsening mentatin or balance though she does tell me her recall/memory is intermittently impaired she finds. Allergies Allergy/AdvReac Type Severity Reaction Status Date / Time No Known Allergies Allergy Unverified 06/04/23 17:19 Home Medications Medication Instructions Recorded Confirmed Type furosemide 40 mg tablet 40 mg PO QAM 06/04/23 06/15/23 History magnesium oxide 250 mg PO DAILY 06/04/23 06/15/23 History oxycodone-acetaminophen 5 mg-325 1 tab PO Q4H PRN Pain 06/04/23 06/15/23 History mg tablet potassium chloride 20 mEq 20 meq PO QAM 06/04/23 06/15/23 History tablet,extended release(part/cryst) acetaminophen 300 mg-codeine 30 mg 1 tab PO Q4 PRN Severe Pain (Scale 06/15/23 06/15/23 History tablet Score 7-10) hydrocodone 5 mg-acetaminophen 325 1 tab PO UD PRN Pain 06/15/23 06/15/23 History mg tablet Patient History Medical History (Updated 06/15/23 @ 12:53 by Emma Epps MD, PhD) Adenocarcinoma Ambulatory dysfunction Chronic hyponatremia History of PSVT (paroxysmal supraventricular tachycardia) Liver mass Surgical History History of appendectomy History of colonoscopy with polypectomy History of radiofrequency ablation procedure for cardiac arrhythmia Family History Sister Lung cancer Social History Smoking Status: Never smoker Second Hand Exposure: No; Do You Dip or Chew Tobacco: No; Tobacco Cessation Education Requested by Patient: No Hx Alcohol Use: No Hx Substance Use: No Preferred Language: Bulgarian Communication Ability: Effective 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 Beliefs That Will Affect Care: None marital status: Current Living Situation: Spouse Current Living Situation Comment: ranch home Other Information That Helps Us Care for You: No Feels Safe at Home: Yes Safety Concerns: Feels Safe At This Time Assistive Devices: Walker Assistive Devices Comment: charissaator florentin Review of Systems Review of Systems: All systems reviewed & are unremarkable except as noted in HPI & below Physical Exam Constitutional: well developed, + cachectic, + frail appearing and cooperative; no acute distress Eyes: EOM intact bilaterally ENMT: Ears: no external ear abnormality Nose: no external nose abnormality Mouth: + dry oral mucous membranes Neck: no nuchal rigidity Respiratory: normal respiratory effort Auscultation: + diminished lung sounds and + crackles (R base) Cardiovascular: Rate/Rhythm: regular rate and regular rhythm Extremities: + edema (2+ pedal and BL ankle) Gastrointestinal (Abdomen): Inspection/Auscultation: + abdomen distended and normal bowel sounds Percussion/Palpation: abdomen soft; abdomen nontender Musculoskeletal: Extremities: strength 5/5 throughout Skin: no rashes, warm and dry Neurologic: keith, fluent speech, no tremor Psychiatric: Orientation: alert, oriented x 3 and oriented to person Speec h: normal rate/rhythm/volume of speech Results & Data Vital Signs (Past 12 Hours) Vital Signs Temp Pulse Pulse Pulse Resp BP BP 06/15/23 07:09 36.6 C 64 16 118/65 06/15/23 05:43 36.3 C L 63 16 107/68 06/15/23 05:03 60 16 117/63 06/15/23 03:00 58 L 16 114/57 L 06/15/23 01:27 57 L 06/15/23 01:00 59 L 20 06/15/23 00:31 36.4 C L 62 18 116/69 Pulse Ox O2 Del Method 06/15/23 07:09 96 Room Air 06/15/23 05:43 99 Room Air 06/15/23 05:03 99 Room Air 06/15/23 03:00 99 Room Air 06/15/23 01:27 06/15/23 01:00 100 Room Air 06/15/23 00:31 100 Room Air Laboratory Results 06/15/23 06:51 06/15/23 11:[address] w/ IV con ABDOMEN: Liver: There is a very large heterogenous mass lesion occupying the right lobe of the liver, caudate lobe, and the central aspect of the left liver lobe measuring approximate 22 cm transverse by 17 cm AP by 17 cm craniocaudad. The intrahepatic IVC is surrounded and compressed by the mass measuring 6 mm transverse diameter. Gallbladder and bile ducts: Unremarkable. No calcified stones. No ductal dilation. Pancreas: Unremarkable. No mass. No ductal dilation. Spleen: See below. Adrenals: Unremarkable. No mass. Kidneys and ureters: Unremarkable. No solid mass. No hydronephrosis. Stomach and bowel: Unremarkable. No obstruction. No mucosal thickening. PELVIS: Appendix: No findings to suggest acute appendicitis. Bladder: Unremarkable. No mass. Reproductive: Unremarkable as visualized. ABDOMEN and PELVIS: Intraperitoneal space: There is a moderate to large amount of ascites throughout the abdomen and pelvis. Bowel loops are nondilated. There is a mild edema of the wall of the cecum and right colon, possibly passive congestion. No pneumoperitoneum or abscess is seen. Bones/joints: Mild to moderate multilevel degenerative changes throughout the spine. No acute fracture or subluxation is seen. Multiple small lytic lesions are seen in the spinous process of L3 which could represent metastasis or an osseous hemangioma. Soft tissues: Unremarkable. Vasculature: The portal vein is mildly dilated measuring 16 mm. The right hepatic vein is partially thrombosed the left hepatic vein is patent. There is a recanalized paraumbilical vein as well as splenomegaly indicating portal hypertension. Esophageal varices are present. The abdominal aorta is mildly calcified but nondilated. Lymph nodes: Unremarkable. No enlarged lymph nodes. IMPRESSION: 1. There is a very large heterogenous mass lesion occupying the right lobe of the liver, caudate lobe, and the central aspect of the left liver lobe measuring approximate 22 cm transverse by 17 cm AP by 17 cm craniocaudad. 2. The portal vein is mildly dilated measuring 16 mm. The right hepatic vein is partially thrombosed the left hepatic vein is patent. There is a recanalized paraumbilical vein as well as splenomegaly indicating portal hypertension. Esophageal varices are present. 3. There is a moderate to large amount of ascites throughout the abdomen and pelvis. 4. Bowel loops are nondilated. There is a mild edema of the wall of the cecum and right colon, possibly passive congestion. No pneumoperitoneum or abscess is seen.
[2023-06-15 12:09] LABS: BUN Creatinine Ratio 63.4 (10-20); Calcium 7.9 mg/dl (8.6-10.3); Creatinine Clr Calc Pharmacy 43.5 ml/min; Est GFR (African American) 64.4 ml/min; Est GFR (Non-African American) 55.6 ml/min; Potassium 5.6 mmol/L (3.5-5.1)
[2023-06-15] MEDS ORDERED: FUROSEMIDE INJ 20 MG/2 ML VIAL IV ONE (12:30)
--- NOTE | 2023-06-15 14:40 | Hospitalist Progress Note ---
Date of Service June 15, 2023 Assessment & Plan (1) Abdominal pain: Plan: 72-year-old female with PMH of prediabetes, COVID, liver mass suggestive of metastatic adenocarcinoma, unknown primary currently not receiving treatment, recurrent ascites requiring weekly paracenteses last paracentesis couple of days ago as per patient but fluid in the abdomen is filling up fast. She is having severe abdominal pain 8 / 10 in severity radiating to back which prompted her to come to the ER. Abdominal pain From liver mass with stretching of capsule and complicated by ascites Pain control Has been feeling some improvement Liver mass Metastatic adenocarcinoma unknown primary Patient decided for no chemotherapy Following with palliative care and also heme-onc Dr. Christos Dangelo We will ask for palliative care evaluation and possible hospice care at home Ascites Secondary to malignancy Currently getting weekly paracentesis but seems fluid is filling up fast Palliative care suggested Pleurx catheter prior to hospice care Can consider placing during this admission Patient needs paracentesis Continue home Lasix monitor for volume overload Has been requiring paracentesis every week and is planned for placement of Pleurx catheter as advised by the palliative care service Palliative care has been consulted in the hospital Hyponatremia Sodium 126 Most likely from ongoing malignancy Also patient" poor p.o. intake Getting gentle fluids normal saline 50 mill per hour We will follow urine osmole, serum osmolality and urine sodium BMP every 6 hours Nephro consult-appreciate input and recommendation History of hypercalcemia Last admission received Zometa and fluids Currently levels okay DVT prophylaxis SCDs and heparin subcu Disposition medical floor CODE STATUS DNR/DNI as per my discussion with the patient (2) Acute hyponatremia: Admission and Anticipated Discharge Date Admission Date: June 15, 2023 Subjective 06/15/2023 The patient was seen and examined in medical floor She was admitted with abdominal distention and pain with known history of metastatic adenocarcinoma to liver of unknown etiology with ascites Denies any nausea vomiting and has been feeling little better since admission Requires paracentesis weekly Review of Systems Review of Systems: All systems reviewed and are unremarkable except as noted below Gastrointestinal: Distended and soft Physical Exam Physical Exam: Sitting at the edge of the bed without any acute distention Constitutional: + ill appearing and average body habitus Eyes: PERRL, conjunctivae normal, anicteric sclerae ENMT: external ear and nose normal, oropharynx normal Neck: trachea midline, no thyromegaly Respiratory: no respiratory distress Auscultation: lungs clear to auscultation bilaterally Cardiovascular: Rate/Rhythm: regular rate and regular rhythm; not tachycardic Heart Sounds: normal S1 and normal S2; no murmur Extremities: + edema (1-2+ edema bilaterally) Gastrointestinal (Abdomen): Inspection/Auscultation: + abdomen distended and normal bowel sounds Percussion/Palpation: + abdomen tender and + ascites (Moderate to severe ascites on examination); + abdomen not soft (Form) Musculoskeletal: No acute arthritis involving any joint Neurologic: normal touch/pain/proprioception and moves all extremities; no focal motor deficits Lymphatic: no cervical or axillary lymphadenopathy Results & Data Results & Data Vital Signs (Past 12 Hours) Vital Signs Temp Pulse Pulse Pulse Resp BP BP 06/15/23 14:18 36.4 C L 71 16 109/65 06/15/23 07:09 36.6 C 64 16 118/65 06/15/23 05:43 36.3 C L 63 16 107/68 06/15/23 05:03 60 16 117/63 06/15/23 03:00 58 L 16 114/57 L Pulse Ox O2 Del Method 06/15/23 14:18 94 Room Air 06/15/23 07:09 96 Room Air 06/15/23 05:43 99 Room Air 06/15/23 05:03 99 Room Air 06/15/23 03:00 99 Room Air Laboratory Results Short CBC 06/15/23 06/15/23 Range/Units 00:50 06:51 WBC 5.98 3.90 L (4.8-10.8) K/ul Hgb 12.0 11.7 L (12.0-16.0) g/dl Hct 37.1 36.0 L (37.0-47.0) % Plt Count 169 164 (130-400) K/uL BMP 06/15/23 06/15/23 06/15/23 00:50 06:51 11:32 Sodium 126 L 127 L 127 L Potassium 5.0 5.2 H 5.6 H Chloride 100 102 102 Carbon Dioxide 16 L 20 L 19 L BUN 66 H 65 H 64 H Creatinine 1.05 1.01 1.01 Glucose 103 H 97 113 H Calcium 8.0 L 7.9 L 7.9 L Liver Function 06/15/23 Range/Units 00:50 Total Bilirubin 0.7 (0.2-1.0) mg/dl AST 66 H (13-39) U/L ALT 27 (7-52) U/L Alkaline Phosphatase 283 H (34-104) U/L Albumin 3.1 L (3.4-5.0) gm/dl Urine 06/15/23 Range/Units 03:28 Urine Color Yellow Urine Appearance Clear (Clear) Urine pH 5.0 (4.5-7.5) Ur Specific [place] 1.024 (1.000-1.030) Urine Protein Negative (Negative) Urine Glucose (UA) Negative (Negative) Medications Administered Current Inpatient Medications Furosemide (Furosemide 40 Mg Tab) 40 mg PO QAM [facility] Stop: 07/15/23 08:59 Last Admin: 06/15/23 07:56 Dose: 40 mg Heparin Sodium (Porcine) (Heparin Sod 5,000 Unit/0.5 Ml Vial) 5,000 units SQ Q12 [facility] Stop: 07/15/23 08:59 Last Admin: 06/15/23 08:01 Dose: Not Given Hydromorphone HCl (Hydromorphone Inj 0.5 Mg/0.5 Ml Syr) 0.5 mg IV Q3H PRN PRN Reason: Severe Pain (Scale 7, 8, 9,10) Stop: 06/29/23 05:40 Sodium Chloride (Nss 1000ml) 1,000 mls @ 50 mls/hr IV .Q20H [facility] Stop: 07/15/23 01:44 Last Admin: 06/15/23 03:41 Dose: 50 mls/hr Magnesium Oxide (Magnesium Oxide 400 Mg Tab) 200 mg PO DAILY [facility] Stop: 07/15/23 08:59 Last Admin: 06/15/23 07:57 Dose: 200 mg Ondansetron HCl (Ondansetron Inj 2 Mg/Ml 2 Ml Vial) 4 mg IV Q6H PRN PRN Reason: Nausea Stop: 07/15/23 05:40 Oxycodone HCl (Oxycodone Hcl Ir 5 Mg Tab (Immediate Release)) 5 mg PO Q6H PRN PRN Reason: Moderate Pain (Scale 4, 5, 6) Stop: 06/29/23 05:40 Last Admin: 06/15/23 08:17 Dose: 5 mg Potassium Chloride (Potassium Chloride Crtab 20 Meq Tabcr) 20 meq PO QAM [facility] Stop: 07/15/23 08:59 Last Admin: 06/15/23 07:59 Dose: 20 meq
[2023-06-15] MEDS: HYDROmorphone INJ 0.5 MG/0.5 ML SYR IV PRN (17:39)
[2023-06-15] MEDS: ONDANSETRON INJ 2 MG/ML 2 ML VIAL IV PRN (17:39)
[2023-06-15 18:31] LABS: BUN Creatinine Ratio 53.8 (10-20); Calcium 7.6 mg/dl (8.6-10.3); Creatinine Clr Calc Pharmacy 36.9 ml/min; Est GFR (African American) 52.8 ml/min; Est GFR (Non-African American) 45.6 ml/min; Potassium 5.4 mmol/L (3.5-5.1)
[2023-06-15] MEDS ORDERED: Nursing to Pharmacy Communication SCH (23:15)
[2023-06-16 00:31] LABS: BUN Creatinine Ratio 50.4 (10-20); Calcium 7.4 mg/dl (8.6-10.3); Creatinine Clr Calc Pharmacy 36.9 ml/min; Est GFR (African American) 52.8 ml/min; Est GFR (Non-African American) 45.6 ml/min; Potassium 5.4 mmol/L (3.5-5.1)
[2023-06-16] MEDS: ONDANSETRON INJ 2 MG/ML 2 ML VIAL IV PRN ×2 (07:27→17:13)
[2023-06-16] MEDS: FUROSEMIDE 40 MG TAB PO SCH (09:16)
[2023-06-16] MEDS: MAGNESIUM OXIDE 400 MG TAB PO SCH (09:16)
[2023-06-16] MEDS: HEPARIN SOD 5,000 UNIT/0.5 ML VIAL SQ SCH ×3 (09:17→19:34)
--- NOTE | 2023-06-16 10:00 | Electrocardiogram Report ---
Test Reason : Blood Pressure : / mmHG Vent. Rate : 058 BPM Atrial Rate : 058 BPM P-R Int : 148 ms QRS Dur : 088 ms QT Int : 444 ms P-R-T Axes : -25 007 026 degrees QTc Int : 435 ms Low right atrial bradycardia Low voltage QRS Cannot rule out Anterior infarct (cited on or before 15-JUN-2023) Abnormal ECG When compared with ECG of 04-JUN-2023 13:42, No significant change Confirmed by Bob Flores ([id number]) on 06/16/2023 9:59:32 AM Referred By: REFERRED SELF Confirmed By:Bob Flores
--- NOTE | 2023-06-16 10:59 | Palliative Care Consultation ---
Date of Consultation June 16, 2023 Assessment & Plan (1) Cancer related pain: per chart review, family feels she was too sedated/?AMS with percocet Carolina states she is doing ok with tylenol #3 (2) Anorexia: cancer related. Pt notes with abd distension and how fast the fluid reaccum ulates, she is not able to tolerate much PO even though family "keep pushing me to eat and saying I can't lose anymore weight but does that really matter at this point? I mean, I know what's happening, are they not seeing the same thing?" (3) Abdominal pain, generalized: recurrent malignant ascites Our IR dept does not have capacity for an aspira Pleurx to abd cannot be done by Pulm CCM - ?GI may be able/primary team will investigate Pt is clear she would like an intervention to improve comfort/provide relief from recurrent ascites and allow her to return home/stay home and focus on comfort. (4) Metastatic adenocarcinoma to liver: (5) Weakness generalized: (6) Palliative care by specialist: Met with pt amd reviewed Palliative Medicine, a subspecialty that provides specialized medical care for people living with a serious illness by offering a focus on quality of life. Palliative Medicine is often conflated with hospice: I advised patient/family that Palliative and hospice can be partners but we are not the same. It is important to understand the difference so that we may be informed, and not afraid. Palliative Medicine works to improve QOL through reduction of symptom burden/more control over their illness, for both the patient and family. Palliative medicine clinicians are board certified, specially-trained and another member of the patient's medical care team. We often provide an extra layer of support because our care is based on the needs of the patient, not the prognosis; as such, it's appropriate at any age/advanc ing stage of a serious illness and can be provided along with curative treatment. Palliative Medicine clinicians are also trained in advanced communication methodologies, to facilitate complex discussions about advanced illness planning, which are needed to help assure that the treatment choices match the patient's goals, aka delivering Goal Concordant care. Finally, we discussed that hospice is a visiting nurse service that focuses on care delivered at the very end of life for patients with terminal illness, with life expectancy less than 6 month. (7) Advanced care planning/counseling discussion: Met face to face with pt for 45 min at bedside We discussed that cancer patients experience significant symptom and psychosocial burden for which the early integration of supportive oncology with palliative medicine (early findings from the research of Angel and Aaron) help address a growing need to manage patients comprehensively, with an emphasis on symptom control, nutritional and psychosocial support, and pharmaceutical review. Palliative care consultation in patients with advanced cancer is not only associated with an improvement in the quality of oncology care, but also a reduction in downstream healthcare utilization. In Vu et al 2017, when the automatic palliative medicine consult was triggered by specific oncology criteria, 30-day readmission rates and use of chemotherapy after discharge declined, whereas hospice referrals and uptake of support services post- discharge increased. Patients with advanced cancer admitted to an acute care hospital often have short life expectancies and high morbidity - for these patients, the integration of palliative care has improved symptom burden, reduced patient and caregiver distress, increased referral to hospice, and improved outcomes. Advance illness planning conversations are conducted to review goals and expectations, support shared decision-making, and engage in disease specific advance care planning. This type of advance care planning is sometimes referred to as 'preparedness planning. It is used to review the risks and benefits of offered therapy, elicit and deepen understanding of the underlying illness and therapeutic options, ensure adequate psychosocial support, address existential concerns and coping, and engage in end-of-life planning. Preparedness planning is not meant to replace informed consent discussions. Palliative medicine plays a role in the process of deepening a patients understanding of this specific medical intervention and ensuring this treatment aligns with their goals of care remains a central tenet of the planning conversation. Carolina is very direct in her communication style and clearly states she knows her cancer is advanced/+mets, not curable and she does not want to struggle with cancer therapies/side effects etc. She wants to be in her home, maximize time with her family. She would like some way to facilitate draining ascites without needing repeat intervention. She is amenable to an Aspira or equivalent and asks if this can be done for her during this admission. I advised her of the logistics and that we were working on finding a potential solution. We spoke about adding hospice to her care once a drain is placed, We discussed the goals of hospice as a patient service and the goals of care; we discussed EOL trajectories and transitions beverly the emotional impact of realizing mortality as a concrete reality from prior abstract considerations. Pt was reassured that no matter where they are along this trajectory, they are not alone - their medical team will remain by their side through their journey. Discussed the pros/cons of accepting help when especially weakened and distressed by pain- which would also help provide relief/decrease caregiver burden/strain. She was very receptive to this and willing to accept help, noting she may not need much help right now but anticipates this will change with more time. (8) Encounter for hospice care discussion: I provided education about the hospice benefit: an interdisciplinary program offered by nurses, nurses aides, social workers, chaplains and a manager medical for patients with a terminal condition and a life expectancy of less than 6 months. This is covered by Medicare at 100%/no out of pocket expense to patient and all meds/supplies needed by patient for the reason they are on hospice are paid for/covered by hospice. The goal is assure quality of life of the patient in their home setting (home, halfway, inpatient hospice setting) by providing symptoms management, psychosocial and spiritual support. However, they cannot offer 24 hours care and if the family is unable to provide that care, they will have to consider personal care with out of pocket cost vs. halfway placement. We discussed the goals of hospice as a patient service and the goals of care; we discussed EOL trajectories and transitions beverly the emotional impact of realizing mortality as a concrete reality from prior abstract considerations. Pt was reassured that no matter where they are along this trajectory, they are not alone - their medical team will remain by their side through their journey. Discussed the pros/cons of accepting help when especially weakened and distressed by pain-which would also help provide relie f/decrease caregiver burden/strain. Plan * Await clarification re: placing Aspira/equivalent to manage the malignant ascites at home * If we cannot do accommodate the needs, she will need a sono guided paracentesis with Magan Lyman then on dc should have a scheduled appt with RON BURROUGHS to have this done - may require CM partnership with pt son to get this coordinated. * She is receptive for hospice after drain is placed. [facility]. suggest early referral to hospice to have them be ready to call her for intake after dc * no change to pain regimen for now, per her preference * She enjoys feeling busy/useful - strongly suggest providing pt with some distraction therapies, activities books etc. We spoke about some legacy projects she can consider doing as well. * TS 110min Thank you for allowing us to participate in the ongoing care of this patient. Please don't hesitate to call or page with any additional concerns. Dr. Luiza Gallego [facility] Director, Palliative Care History of Present Illness Reason for Consultation: "GOC" Attending Physician: Emily Erickson MD History of Present Illness 72-year-old female with PMH of prediabetes, COVID, liver mass suggestive of metastatic adenocarcinoma, unknown primary currently not receiving treatment, recurrent ascites requiring weekly paracenteses last paracentesis couple of days ago as per patient but fluid in the abdomen is filling up fast. She is having severe abdominal pain 8/10 severity radiating to back which prompted her to come to the ER. Liver mass found to be metastatic adenocarcinoma unknown primary and pt has declined chemotherapy. Chart review states "Following with palliative care and also heme-onc Dr. Christos Dangelo We will ask for palliative care evaluation and possible hospice care at home" PMH: PSVT s/p ablation(2004),traceMitral regurgitation,COVID pneumonia (11/2020),DMII ->Prediabetes (with diet change),diverticulosis, dx of metastatic adenocarcinoma to the liver, Liver cirrhosis with ascites Recent PET CT : 1. Increase in size of 13 (CC) x 20 (AP) x 15 (TV) cm metabolically-active necrotic mass involving caudate/right/left hepatic lobes. 2. New metabolically-active mixed osteolytic/sclerotic lesion within the left S3 ala, concerning for metastasis. PCP Notes 06/12/23 visit: "Had extensive discussion with pt, son and - discussed the recent PET CT scan result - discuss possible hospice in the future: if pt continues to decline ---- per pt she prefers less hospitalization, less lab draw if her functional capacity continues to decline -pt does have follow up with palliative tomorrow --- son would like to join but he is at work --- will send son's contact infor to palliative team - for the pain I recommended 1 tab of tylenol #3 qhs and 1/2 tab in the AM ---- change dose as pt tolerates" Pt is established with Dr Haji at [facility] on 06/16/23 son Rafael spoke with Dr Trinidad requesting "PleurX" and Dr Trinidad noted pt was admitted here to [facility]. This is planning to be done at [facility] IR after dc. Of note, pt has recurrent ASCITES - ?would an Aspira be more appropriate than a pleurx? Pt is seen at bedside, no family present. She is awake and alert Allergies Allergy/AdvReac Type Severity Reaction Status Date / Time No Known Allergies Allergy Unverified 06/04/23 17:19 Home Medications Medication Instructions Recorded Confirmed Type furosemide 40 mg tablet 40 mg PO QAM 06/04/23 06/15/23 History magnesium oxide 250 mg PO DAILY 06/04/23 06/15/23 History oxycodone-acetaminophen 5 mg-325 1 tab PO Q4H PRN Pain 06/04/23 06/15/23 History mg tablet potassium chloride 20 mEq 20 meq PO QAM 06/04/23 06/15/23 History tablet,extended release(part/cryst) acetaminophen 300 mg-codeine 30 mg 1 tab PO Q4 PRN Severe Pain (Scale 06/15/23 06/15/23 History tablet Score 7-10) hydrocodone 5 mg-acetaminophen 325 1 tab PO UD PRN Pain 06/15/23 06/15/23 History mg tablet Patient History Medical History (Updated 06/16/23 @ 11:51 by Luiza Gallego DNP) Adenocarcinoma Ambulatory dysfunction Chronic hyponatremia History of PSVT (paroxysmal supraventricular tachycardia) Liver mass Surgical History History of appendectomy History of colonoscopy with polypectomy History of radiofrequency ablation procedure for cardiac arrhythmia Family History Sister Lung cancer Social History Smoking Status: Never smoker Second Hand Exposure: No; Do You Dip or Chew Tobacco: No; Tobacco Cessation Education Requested by Patient: No Hx Alcohol Use: No Hx Substance Use: No Preferred Language: Rw[place]an Communication Ability: Effective Territory Business Manager Required: No Beliefs That Will Affect Care: None marital status: Current Living Situation: Spouse Current Living Situation Comment: ranch home Other Information That Helps Us Care for You: No Feels Safe at Home: Yes Safety Concerns: Feels Safe At This Time Assistive Devices: Walker Assistive Devices Comment: rollator walker Review of Systems Review of Systems: All systems reviewed & are unremarkable except as noted in Subjective Physical Exam Constitutional: + thin, + cachectic, + frail appearing and + malnourished Eyes: PERRL, conjunctivae normal, anicteric sclerae ENMT: dry MM, dentition intact, no thrush noted Neck: no JVD, no carotid bruits Respiratory: normal effort at rest, clear but diminished breath sounds, no wheezing or rhonchi Cardiovascular: Rate/Rhythm: regular rate and regular rhythm Heart Sounds: normal S1 and normal S2 Palpation: normal PMI Vessels: dorsalis pedis pulses present Extremities: normal capillary refill Gastrointestinal (Abdomen): distended and firm, + fluid wave, TTP throughout, BS diminished Musculoskeletal: Extremities: + limited ROM of extremities, + abnormal strength (diminished), + abnormal muscle tone (diminished ) and + muscle atrophy generalized weakness Skin: pale, warm Neurologic: PERRL, EOMI, accommodation nl, no face palsy, no dysarthria AAOx3 Psychiatric: A+Ox3, euthymic affect Orientation: alert and oriented x 3 Apperance: appropriately dressed and appeared stated age Eye Contact: good eye contact Motor Behavior: no abnormal motor movements Speech: normal rate/rhythm/volume of speech Affect: + tearful affect Results & Data Vital Signs (Past 12 Hours) Vital Signs Temp Pulse Resp BP Pulse Ox O2 Del Method 06/16/23 07:33 Room Air 06/16/23 07:18 36.5 C 68 18 106/50 L 98 Room Air Laboratory Results data reviewed/see HPI Diagnostic Findings data reviewed/see HPI PG Care Time/CCT Total # of Minutes Spent Total Time Spent: 110 Total Time Spent with Patient: Total time spent is greater than 50% in coordination of care (as documented) at patient's floor/unit and/or counseling patient: I spent 90 minutes overall addressing this case: 15 in medical data review/discussion with referring provider(s) and/or preparation for the visit 20 in direct interaction with the patient 45 Advance Care Planning/Goals of Care discussions as detailed above in note (must be >16min) 10 in subsequent review and synthesis of assessment and plan 20 in communicating with other providers regarding the patient's case: IR, nursing,. primary team. pulmonary Prolonged Care Time Prolonged Care Time: Yes Advanced Care Planning 52891 Advanced Care Planning 30 Min 59868 Advanced Care Planning Additional 30 [place] [address] IN/OBS CONSULT LVL 5,80M Patient Type New History Comprehensive Exam Comprehensive Medical Decision Making High Complexity Diagnoses Cancer related pain G89.3 Anorexia R63.0 Abdominal pain, generalized R10.84 Metastatic adenocarcinoma to liver C78.7 Weakness generalized R53.1 Palliative care by specialist Z51.5 Advanced care planning/counseling discussion Z71.89 Encounter for hospice care discussion Z71.89 Additional Codes Advanced Care Planning - 59838 Advanced Care Planning 30 Min: 89468 Advanced Care Planning 30 Min ([id number]) Advanced Care Planning - 50592 Advanced Care Planning Additional 30 Min: 44784 Advanced Care Planning Additional 30 Min ([id number]) Prolonged Care Time - Prolonged Care Time: Yes ([id number]) Time Spent (min) 110
--- NOTE | 2023-06-16 15:00 | Ultrasound Report ---
ULTRASOUND-GUIDED PARACENTESIS CLINICAL HISTORY: Ascites PROCEDURE: Procedure and risks were explained. Informed consent was obtained. A final timeout was com pleted. Sonographic examination revealed a large amount of ascites. A pocket was identified in the l eft lower quadrant. The left lower quadrant was prepped and draped in sterile fashion. 1% buffered li docaine was utilized for skin anesthesia. Utilizing ultrasound guidance, a 5 [place] safety centesis c atheter was introduced into the pocket and 4800 ml of yellow ascites fluid was drained and discarded. Ultrasound images were obtained. The catheter was removed. Postprocedural scanning showed significa nt decrease in the amount of ascites. The patient tolerated the procedure well. Vital signs will be m onitored on the floor. IMPRESSION: Ultrasound guided paracentesis as described above. Performed, dictated, and signed by Ivan Lyman PA-C; to be co-signed by Dr. Manjeet Gonzales. Electronically signed by: Manjeet Gonzales M.D. 06/16/2023 3:10 PM
[2023-06-16] MEDS: oxyCODONE HCL IR 5 MG TAB (IMMEDIATE RELEASE) PO PRN (17:13)
--- NOTE | 2023-06-16 17:24 | Hospitalist Progress Note ---
Date of Service June 16, 2023 Assessment & Plan (1) Abdominal pain: Plan: 72-year-old female with PMH of prediabetes, COVID, liver mass suggestive of metastatic adenocarcinoma, unknown primary currently not receiving treatment, recurrent ascites requiring weekly paracenteses last paracentesis couple of days ago as per patient but fluid in the abdomen is filling up fast. She is having severe abdominal pain 8 / 10 in severity radiating to back which prompted her to come to the ER. Abdominal pain From liver mass with stretching of capsule and complicated by ascites Pain control Has been feeling some improvement Pain is much better controlled with narcotic pain medications Liver mass Metastatic adenocarcinoma unknown primary Patient decided for no chemotherapy Following with palliative care and also heme-onc Dr. Christos Dangelo We will ask for palliative care evaluation and possible hospice care at home Ascites Secondary to malignancy Currently getting weekly paracentesis but seems fluid is filling up fast Palliative care suggested Pleurx catheter prior to hospice care Can consider placing during this admission Patient needs paracentesis Continue home Lasix monitor for volume overload Has been requiring paracentesis every week and is planned for placement of Pleurx catheter as advised by the palliative care service Palliative care has been consulted in the hospital Will have abdominal paracentesis today as we cannot put Asperia Drain tube in this hospital-discussed with IR and GI Likely discharge in a day or 2 and will have IR guided Asperia Tube placement in [facility] down the line Hyponatremia Sodium 126 Most likely from ongoing malignancy Also patient" poor p.o. intake Getting gentle fluids normal saline 50 mill per hour We will follow urine osmole, serum osmolality and urine sodium BMP every 6 hours Nephro consult-appreciate input and recommendation Sodium is 127 and potassium 5.4-we will repeat History of hypercalcemia Last admission received Zometa and fluids Currently levels okay DVT prophylaxis SCDs and heparin subcu Disposition medical floor CODE STATUS DNR/DNI as per my discussion with the patient (2) Acute hyponatremia: Admission and Anticipated Discharge Date Admission Date: June 15, 2023 Subjective 06/15/2023 The patient was seen and examined in medical floor She was admitted with abdominal distention and pain with known history of metastatic adenocarcinoma to liver of unknown etiology with ascites Denies any nausea vomiting and has been feeling little better since admission Requires paracentesis weekly 06/16/2023 The patient was seen and examined in medical floor She has been feeling much better and he still has abdominal distention and discomfort No nausea no vomiting Appreciate palliative care input and recommendation Review of Systems Review of Systems: All systems reviewed and are unremarkable except as noted below Gastrointestinal: Distended and soft Physical Exam Physical Exam: Sitting at the edge of the bed without any acute distention Constitutional: + ill appearing and average body habitus Eyes: PERRL, conjunctivae normal, anicteric sclerae ENMT: external ear and nose normal, oropharynx normal Neck: trachea midline, no thyromegaly Respiratory: no respiratory distress Auscultation: lungs clear to auscultation bilaterally Cardiovascular: Rate/Rhythm: regular rate and regular rhythm; not tachycardic Heart Sounds: normal S1 and normal S2; no murmur Extremities: + edema (1-2+ edema bilaterally) Gastrointestinal (Abdomen): Inspection/Auscultation: + abdomen distended and normal bowel sounds Percussion/Palpation: + abdomen tender and + ascites (Moderate to severe ascites on examination); + abdomen not soft (Form) Neurologic: normal touch/pain/proprioception and moves all extremities; no focal motor deficits Lymphatic: no cervical or axillary lymphadenopathy Results & Data Results & Data Vital Signs (Past 12 Hours) Vital Signs Temp Pulse Resp BP Pulse Ox O2 Del Method 06/16/23 16:55 36.2 C L 67 18 103/61 95 Room Air 06/16/23 16:28 83 14 100/46 L 97 Room Air 06/16/23 16:07 36.4 C L 69 18 106/61 97 Room Air 06/16/23 15:35 70 14 97/60 L 97 Room Air 06/16/23 15:14 36.4 C L 67 14 110/67 99 Room Air 06/16/23 07:33 Room Air 06/16/23 07:18 36.5 C 68 18 106/50 L 98 Room Air Laboratory Results BMP 06/15/23 06/15/23 17:56 23:58 Sodium 125 L 127 L Potassium 5.4 H 5.4 H Chloride 102 104 Carbon Dioxide 16 L 17 L BUN 64 H 60 H Creatinine 1.19 1.19 Glucose 118 H 113 H Calcium 7.6 L 7.4 L Medications Administered Current Inpatient Medications Furosemide (Furosemide 40 Mg Tab) 40 mg PO QAM [facility] Stop: 07/15/23 08:59 Last Admin: 06/16/23 09:16 Dose: 40 mg Heparin Sodium (Porcine) (Heparin Sod 5,000 Unit/0.5 Ml Vial) 5,000 units SQ Q12 [facility] Stop: 07/15/23 08:59 Last Admin: 06/16/23 09:20 Dose: Not Given Hydromorphone HCl (Hydromorphone Inj 0.5 Mg/0.5 Ml Syr) 0.5 mg IV Q3H PRN PRN Reason: Severe Pain (Scale 7, 8, 9,10) Stop: 06/29/23 05:40 Last Admin: 06/15/23 17:39 Dose: 0.5 mg Sodium Chloride (Nss 1000ml) 1,000 mls @ 50 mls/hr IV .Q20H [facility] Stop: 07/15/23 01:44 Last Admin: 06/15/23 23:29 Dose: 50 mls/hr Magnesium Oxide (Magnesium Oxide 400 Mg Tab) 200 mg PO DAILY [facility] Stop: 07/15/23 08:59 Last Admin: 06/16/23 09:16 Dose: 200 mg Ondansetron HCl (Ondansetron Inj 2 Mg/Ml 2 Ml Vial) 4 mg IV Q6H PRN PRN Reason: Nausea Stop: 07/15/23 05:40 Last Admin: 06/16/23 17:13 Dose: 4 mg Oxycodone HCl (Oxycodone Hcl Ir 5 Mg Tab (Immediate Release)) 5 mg PO Q6H PRN PRN Reason: Moderate Pain (Scale 4, 5, 6) Stop: 06/29/23 05:40 Last Admin: 06/16/23 17:13 Dose: 5 mg Potassium Chloride (Potassium Chloride Crtab 20 Meq Tabcr) 20 meq PO QAM [facility] Stop: 07/15/23 08:59 Last Admin: 06/15/23 07:59 Dose: 20 meq
[2023-06-16] MEDS: SODIUM CHLORIDE 0.9% 1000ML 1,000 ML IV SCH (19:33)
[2023-06-16] MEDS ORDERED: traMADol HCL 50 MG TABLET PO STA (21:32)
[2023-06-16] MEDS ORDERED: LACTULOSE SYRUP 30 GM/45 ML UDP PO STA (21:32)
[2023-06-17] MEDS: ONDANSETRON INJ 2 MG/ML 2 ML VIAL IV PRN ×3 (01:52→17:57)
[2023-06-17] MEDS: oxyCODONE HCL IR 5 MG TAB (IMMEDIATE RELEASE) PO PRN ×3 (01:52→17:57)
[2023-06-17 08:36] LABS: Basophils # (auto) 0.02 K/uL (0-0.2); Basophils % (auto) 0.2 %; Eosinophils # (auto) 0.03 K/uL (0-0.50); Eosinophils % (auto) 0.4 %; Hematocrit (blood only) 35.5 % (37.0-47.0); Hemoglobin 11.7 g/dl (12.0-16.0); Immature Granulocytes # (auto) 0.05 K/uL (0.01-0.20); Immature Granulocytes % (auto) 0.6 %; Lymphocytes # (auto) 0.71 K/uL (1.2-3.4); Lymphocytes % (auto) 8.6 %; Mean Platelet Volume 10.6 fL (9.4-12.4); Monocytes # (auto) 0.51 K/uL (0.11-0.59); Monocytes % (auto) 6.2 %; Neutrophils # (auto) 6.96 K/uL (1.40-6.50); Platelet Count 163 K/uL (130-400); RDW Coefficient of Variation 18.9 % (11.5-14.5); RDW Standard Deviation 60.7 fL (36.4-46.3); White Blood Count 8.28 K/ul (4.8-10.8)
[2023-06-17] MEDS: MAGNESIUM OXIDE 400 MG TAB PO SCH (08:55)
[2023-06-17] MEDS: HEPARIN SOD 5,000 UNIT/0.5 ML VIAL SQ SCH ×2 (08:55→21:12)
[2023-06-17 09:15] LABS: BUN Creatinine Ratio 54.6 (10-20); Calcium 7.4 mg/dl (8.6-10.3); Creatinine Clr Calc Pharmacy 40.7 ml/min; Est GFR (African American) 59.4 ml/min; Est GFR (Non-African American) 51.2 ml/min; Potassium 5.1 mmol/L (3.5-5.1)
[2023-06-17] MEDS: FUROSEMIDE 40 MG TAB PO SCH (10:09)
[2023-06-17] MEDS: SODIUM CHLORIDE 0.9% 1000ML 1,000 ML IV SCH (16:12)
--- NOTE | 2023-06-17 17:13 | Communication Note ---
Date of Service: June 17, 2023 Attending addendum The patient was seen and examined in medical floor He is a status post paracentesis Abdominal pain is decreased and she remains stable She will have IR guided SP area tube placement prior to discharge-this can be done in [facility] On examination Lying in bed without any acute distress She remains hemodynamically stable Abdomen-minimally distended but soft and minimally tender. Bowel sound present Extremities-trace edema bilaterally Her admission labs, imaging studies, medications reviewed Agree with assessment and plan as outlined above by Elina Erickson
--- NOTE | 2023-06-17 18:24 | Hospitalist Progress Note ---
Date of Service June 17, 2023 Assessment & Plan (1) Abdominal pain: Plan: 72-year-old female with PMH of prediabetes, COVID, liver mass suggestive of metastatic adenocarcinoma, unknown primary currently not receiving treatment, recurrent ascites requiring weekly paracenteses, last paracentesis couple of days prior to admission but fluid in the abdomen began filling up fast. She is having severe abdominal pain 8 / 10 in severity radiating to back which prompted her to come to the ER. Abdominal pain From liver mass with stretching of capsule and complicated by ascites Pain appears to be controlled current regimen Liver mass Metastatic adenocarcinoma unknown primary Patient decided for no chemotherapy Following with palliative care Dr. Haji and also heme-onc Dr. Christos Dangelo Inpatient palliative care consulted --patient and family considering transition to hospice Ascites Secondary to malignancy Currently getting weekly paracentesis fluid is reaccumulating quickly 06/16-paracentesis for 4.8 L Palliative care suggested abdominal Pleurx catheter prior to hospice care Continue home Lasix monitor for volume overload Will need Asperia tube placement --unfortunately not able to be placed at [facility], will consider transfer to [facility] for IR placement Hyponatremia Chronic, baseline sodium high 120s-low 130s Likely due to underlying suspected liver malignancy and poor p.o. intake Nephrology consulted -received Lasix 10 mg IV x 1 dose, home dose Lasix 40 mg continued, 1.5L FR Na+ 129 today History of hypercalcemia Last admission received Zometa and fluids DVT PROPHYLAXIS SQ heparin Dispo-pending, possible transfer to [facility] for Asperia tube placement under IR, patient and family considering hospice services. Admission and Anticipated Discharge Date Admission Date: June 15, 2023 Supervising Physician Co-Signing Physician Notes Date of Service: June 17, 2023 Attending addendum The patient was seen and examined in medical floor He is a status post paracentesis Abdominal pain is decreased and she remains stable She will have IR guided SP area tube placement prior to discharge-this can be done in [facility] On examination Lying in bed without any acute distress She remains hemodynamically stable Abdomen-minimally distended but soft and minimally tender. Bowel sound present Extremities-trace edema bilaterally Her admission labs, imaging studies, medications reviewed Agree with assessment and plan as outlined above by Elina Erickson Subjective Follow-up for ascites, suspected underlying liver malignancy. Patient seen and examined. Had paracentesis yesterday for 4.8 L Reports she feels generally weak, otherwise offers no complaints. Denies chest pain and shortness of breath. No abdominal pain or nausea. Physical Exam Constitutional: + thin; no acute distress Respiratory: normal respiratory effort, lungs clear to auscultation Cardiovascular: Rate/Rhythm: regular rate and regular rhythm Vessels: normal peripheral pulses Extremities: + edema (+1-2 pitting edema BLE) Gastrointestinal (Abdomen): Percussion/Palpation: abdomen soft; abdomen nontender Skin: no rashes, warm and dry Neurologic: no focal motor deficits Psychiatric: A+Ox3, euthymic affect Results & Data Results & Data Vital Signs (Past 12 Hours) Vital Signs Temp Pulse Resp BP Pulse Ox O2 Del Method 06/17/23 16:17 36.6 C 72 18 102/66 97 Room Air 06/17/23 08:09 36.5 C 67 18 97/61 L 97 Room Air Laboratory Results Short CBC 06/17/23 Range/Units 07:52 WBC 8.28 (4.8-10.8) K/ul Hgb 11.7 L (12.0-16.0) g/dl Hct 35.5 L (37.0-47.0) % Plt Count 163 (130-400) K/uL BMP 06/17/23 07:52 Sodium 129 L Potassium 5.1 Chloride 105 Carbon Dioxide 15 L BUN 59 H Creatinine 1.08 Glucose 121 H Calcium 7.4 L
[2023-06-18] MEDS: oxyCODONE HCL IR 5 MG TAB (IMMEDIATE RELEASE) PO PRN (05:26)
[2023-06-18 08:01] LABS: Hematocrit (blood only) 35.5 % (37.0-47.0); Hemoglobin 11.9 g/dl (12.0-16.0); Mean Corpuscular Hemoglobin 30.1 pg (25.0-34.0); Mean Corpuscular Hgb Conc 33.5 g/dL (32.0-36.0); Mean Corpuscular Volume 89.9 fL (80.0-100.0); Platelet Count 159 K/uL (130-400); RDW Coefficient of Variation 19.1 % (11.5-14.5); RDW Standard Deviation 60.6 fL (36.4-46.3); Red Blood Count 3.95 M/uL (4.20-5.40); White Blood Count 8.28 K/ul (4.8-10.8)
[2023-06-18] MEDS: MAGNESIUM OXIDE 400 MG TAB PO SCH (08:23)
[2023-06-18] MEDS: FUROSEMIDE 40 MG TAB PO SCH (08:24)
[2023-06-18] MEDS: HEPARIN SOD 5,000 UNIT/0.5 ML VIAL SQ SCH ×3 (08:25→20:12)
[2023-06-18 08:52] LABS: BUN Creatinine Ratio 49.6 (10-20); Calcium 7.2 mg/dl (8.6-10.3); Creatinine Clr Calc Pharmacy 37.5 ml/min; Est GFR (African American) 53.9 ml/min; Est GFR (Non-African American) 46.5 ml/min; Potassium 5.1 mmol/L (3.5-5.1)
--- NOTE | 2023-06-18 16:53 | Hospitalist Progress Note ---
Date of Service June 18, 2023 Assessment & Plan (1) Abdominal pain: Plan: 72-year-old female with PMH of prediabetes, COVID, liver mass suggestive of metastatic adenocarcinoma, unknown primary currently not receiving treatment, recurrent ascites requiring weekly paracenteses, last paracentesis couple of days prior to admission but fluid in the abdomen began filling up fast. She was having severe abdominal pain 8 / 10 in severity radiating to back which prompted her to come to the ER. Abdominal pain From liver mass with stretching of capsule and complicated by ascites Pain appears to be controlled with current regimen Liver mass Metastatic adenocarcinoma unknown primary Patient decided for no chemotherapy Following with palliative care Dr. Haji and also heme-onc Dr. Christos Dangelo Inpatient palliative care consulted Discussed plan of care with patient today, she wishes to proceed with home hospice at discharge. With patient's permission, also discussed with her son Rafael. Ascites Secondary to malignancy Currently getting weekly paracentesis and fluid is reaccumulating quickly 06/16-paracentesis for 4.8 L Outpatient palliative care suggested abdominal Pleurx catheter prior to hospice care Continue home Lasix, monitor for volume overload Will need abdominal pleurX tube placed --multiple phone calls made today to coordinate --next available appointment at [facility] is 06/25, [facility] 07/03. Due to rapidly reaccumulating ascites, will maintain patient in the hospital until IR appointment at [facility] on 06/25. At that point, patient will be discharged from [facility] and have abdominal pleurX placed with IR as an outpatient at [facility]. Patient will then return home on hospice services. Appointment for [facility] confirmed by Terra Flower - will need to confirm time of appointment next week. Patient's outpatient palliative care physician, Dr. Haji updated regarding plan. CM updated as well who will arrange for home hospice services to start 06/26. Hyponatremia Chronic, baseline sodium high 120s-low 130s Likely due to underlying suspected liver malignancy and poor p.o. intake Nephrology consulted -received Lasix 10 mg IV x 1 dose, home dose Lasix 40 mg continued, 1.5L FR Na+ 129 today History of hypercalcemia Last admission received Zometa and fluids DVT PROPHYLAXIS SQ heparin Patient seen in collaboration with Dr. Erickson. I spent a total of 80 minutes coordinating, documenting, and providing care for this patient excluding time spent in the performance of separately billed ser vices. This included personally reviewing all current laboratories and imaging studies, medication reconciliation, outpatient chart review, and discussion with specialists. Admission and Anticipated Discharge Date Admission Date: June 15, 2023 Supervising Physician Co-Signing Physician Notes Attending addendum: Patient was seen and examined in medical floor She has been feeling much better though the abdomen seems to be distending without any symptoms of pain, nausea or vomiting She has been tolerating diet and does not have any acute pain On examination Sitting at the edge of the bed without any acute distress Chestclear to auscultate bilaterally Abdomendistended, soft, tender and bowel sound present HeartS1-S2, regular Extremities1+ bilateral edema Her labs and medication reviewed She has malignant ascites that needs to be tapped frequently and she will have a peritoneal catheter placed on Friday in [facility] and going home from the She does have electrolyte abnormalities which were corrected while she is in the hospital Agree with assessment and plan as outlined above by Elina Erickson Subjective Follow-up for ascites, suspected underlying liver malignancy. Patient seen and examined. Lengthy discussion with the patient regarding care plan. Agreeable to hospice services after discharge. Patient feels the abdomen is filling with fluid again. Denies abdominal pain and nausea. Physical Exam Constitutional: + ill appearing and + thin; no acute distress Respiratory: normal respiratory effort, lungs clear to auscultation Cardiovascular: Rate/Rhythm: regular rate and regular rhythm Vessels: normal peripheral pulses Extremities: + edema (+1-2 pitting edema BLE) Gastrointestinal (Abdomen): Inspection/Auscultation: + abdomen distended (Semifirm) Percussion/Palpation: + ascites; abdomen nontender Skin: no rashes, warm and dry Neurologic: no focal motor deficits Psychiatric: A+Ox3, euthymic affect Results & Data Results & Data Vital Signs (Past 12 Hours) Vital Signs Temp Pulse Resp BP Pulse Ox O2 Del Method 06/18/23 15:28 36.6 C 74 18 95/50 L 95 Room Air 06/18/23 07:45 36.6 C 68 16 99/58 L 99 Room Air Laboratory Results Short CBC 06/18/23 Range/Units 07:37 WBC 8.28 (4.8-10.8) K/ul Hgb 11.9 L (12.0-16.0) g/dl Hct 35.5 L (37.0-47.0) % Plt Count 159 (130-400) K/uL BMP 06/18/23 07:37 Sodium 129 L Potassium 5.1 Chloride 105 Carbon Dioxide 18 L BUN 58 H Creatinine 1.17 Glucose 110 H Calcium 7.2 L
[2023-06-19] MEDS: FUROSEMIDE 40 MG TAB PO SCH (08:34)
[2023-06-19] MEDS: MAGNESIUM OXIDE 400 MG TAB PO SCH (08:34)
[2023-06-19] MEDS: HEPARIN SOD 5,000 UNIT/0.5 ML VIAL SQ SCH ×2 (08:35→19:47)
[2023-06-19 09:06] LABS: BUN Creatinine Ratio 53.4 (10-20); Calcium 7.6 mg/dl (8.6-10.3); Creatinine Clr Calc Pharmacy 42.6 ml/min; Est GFR (African American) 62.9 ml/min; Est GFR (Non-African American) 54.3 ml/min; Potassium 5.1 mmol/L (3.5-5.1)
[2023-06-19] MEDS: POLYETHYLENE (MIRALAX) 17 GM PACK PO SCH (10:15)
--- NOTE | 2023-06-19 16:23 | Hospitalist Progress Note ---
Date of Service June 19, 2023 Assessment & Plan (1) Abdominal pain: Plan: 72-year-old female with PMH of prediabetes, COVID, liver mass suggestive of metastatic adenocarcinoma, unknown primary currently not receiving treatment, recurrent ascites requiring weekly paracenteses, last paracentesis couple of days prior to admission but fluid in the abdomen began filling up fast. She was having severe abdominal pain 8 / 10 in severity radiating to back which prompted her to come to the ER. Abdominal pain From liver mass with stretching of capsule and complicated by ascites Pain appears to be controlled with current regimen Severe protein calorie malnutrition Significant weight loss with BMI of 21.5 kg per metered squared Nutritional support Liver mass Metastatic adenocarcinoma unknown primary Patient decided for no chemotherapy Following with palliative care Dr. Haji and also heme-onc Dr. Christos Dangelo Inpatient palliative care consulted Discussed plan of care with patient today, she wishes to proceed with home hospice at discharge. With patient's permission, also discussed with her son Rafael. Ascites Secondary to malignancy Currently getting weekly paracentesis and fluid is reaccumulating quickly 06/16-paracentesis for 4.8 L Outpatient palliative care suggested abdominal Pleurx catheter prior to hospice care Continue home Lasix, monitor for volume overload Care coordinated with [facility] for abdominal pleurX tube placement with IR, discussed again over the phone today -- appt at 3pm at [facility] on 06/25 (needs to be at facility by 1:45pm) - hold lasix and heparin morning of procedure. [facility] IR physician to review plan Friday Patient's outpatient palliative care physician, Dr. Haji updated regarding plan. CM updated as well who will arrange for home hospice services to start 06/26. Placement of intra-abdominal Asperia catheter to drain ascites continuously Hyponatremia Chronic, baseline sodium high 120s-low 130s Likely due to underlying suspected liver malignancy and poor p.o. intake Nephrology consulted -received Lasix 10 mg IV x 1 dose, home dose Lasix 40 mg continued, 1.5L FR Na+ 129 today History of hypercalcemia Last admission received Zometa and fluids DVT PROPHYLAXIS SQ heparin Admission and Anticipated Discharge Date Admission Date: June 15, 2023 Supervising Physician Co-Signing Physician Notes Attending addendum The patient was seen and examined in medical floor in presence of the She has been stable and denies any significant symptoms Awaiting paracentesis tube placement in [place] next Friday On examination No apparent distress at rest Hemodynamically stable with blood pressure on the lower side Chest-clear to auscultate bilaterally Heart-S1-S2, regular Abdomen-mildly distended, soft, mild acetic fluid clinically. Minimally tender Her labs and medications reviewed Has significant electrical abnormality and will be supplemented and corrected gradually Malignant recurrent ascites and will need IR guided Asperia tube placement Agree with assessment and plan as outlined above by GADIEL Altamirano Dr Seen in follow-up in [facility]-2 for ascites, suspected underlying liver malignancy. Patient feeling okay today, sitting at bedside. Discussed plan for abdominal Pleurx placement at [facility] next Friday. Agreeable to hospice services after discharge. Patient feels the abdomen is filling with fluid again. Not painful. Denies abdominal pain and nausea. No F/C, dysuria. Some lower extremity swelling. Review of Systems Review of Systems: At least ten systems reviewed and negative except as noted in the HPI. Physical Exam Physical Exam: Gen: WD/WN, NAD, sitting at side of bed, A&Ox3 HEENT: Normocephalic, atraumatic, conjunctivae moist, sclerae anicteric, mucous membranes moist Lung: Clear to Auscultation bilaterally, no wheezes/rales/rhonchi Heart: Regular rate, regular rhythm, no murmurs, rubs, or gallops Abdomen: Distended, jesica-firm with appearance of ascites NT, +BS x 4 Extremities: 1+ BLE edema Skin: Warm, no rash Results & Data Results & Data Vital Signs (Past 12 Hours) Vital Signs Temp Pulse Resp BP Pulse Ox O2 Del Method 06/19/23 08:04 36.5 C 70 18 105/66 97 Room Air Laboratory Results [facility] 06/19/23 08:14 Sodium 129 L Potassium 5.1 Chloride 107 Carbon Dioxide 16 L BUN 55 H Creatinine 1.03 Glucose 109 H Calcium 7.6 L Diagnostic Findings Abdomen/Pelvis CT 06/15/23 01:34 Exam(s): CT ABDOMEN + PELVIS With Contrast IV Amt: 92 cc's optiray 320 EXAM: CT Abdomen and Pelvis With Intravenous Contrast CLINICAL HISTORY: Reason for exam: abd pain, liver mass, ascites. TECHNIQUE: Axial computed tomography images of the abdomen and pelvis with intravenous contrast. CTDI is 18.96 mGy and DLP is 1010.67 mGy-cm. Automated exposure control was utilized for the study. A dose lowering technique was utilized adhering to the principles of ALARA. CONTRAST: Patient received 92 cc's optiray 320 of IV contrast COMPARISON: June 04, 2023 FINDINGS: Lung bases: Small amount of right lung base atelectasis. ABDOMEN: Liver: There is a very large heterogenous mass lesion occupying the right lobe of the liver, caudate lobe, and the central aspect of the left liver lobe measuring approximate 22 cm transverse by 17 cm AP by 17 cm craniocaudad. The intrahepatic IVC is surrounded and compressed by the mass measuring 6 mm transverse diameter. Gallbladder and bile ducts: Unremarkable. No calcified stones. No ductal dilation. Pancreas: Unremarkable. No mass. No ductal dilation. Spleen: See below. Adrenals: Unremarkable. No mass. Kidneys and ureters: Unremarkable. No solid mass. No hydronephrosis. Stomach and bowel: Unremarkable. No obstruction. No mucosal thickening. PELVIS: Appendix: No findings to suggest acute appendicitis. Bladder: Unremarkable. No mass. Reproductive: Unremarkable as visualized. ABDOMEN and PELVIS: Intraperitoneal space: There is a moderate to large amount of ascites throughout the abdomen and pelvis. Bowel loops are nondilated. There is a mild edema of the wall of the cecum and right colon, possibly passive congestion. No pneumoperitoneum or abscess is seen. Bones/joints: Mild to moderate multilevel degenerative changes throughout the spine. No acute fracture or subluxation is seen. Multiple small lytic lesions are seen in the spinous process of L3 which could represent metastasis or an osseous hemangioma. Soft tissues: Unremarkable. Vasculature: The portal vein is mildly dilated measuring 16 mm. The right hepatic vein is partially thrombosed the left hepatic vein is patent. There is a recanalized paraumbilical vein as well as splenomegaly indicating portal hypertension. Esophageal varices are present. The abdominal aorta is mildly calcified but nondilated. Lymph nodes: Unremarkable. No enlarged lymph nodes. IMPRESSION: 1. There is a very large heterogenous mass lesion occupying the right lobe of the liver, caudate lobe, and the central aspect of the left liver lobe measuring approximate 22 cm transverse by 17 cm AP by 17 cm craniocaudad. 2. The portal vein is mildly dilated measuring 16 mm. The right hepatic vein is partially thrombosed the left hepatic vein is patent. There is a recanalized paraumbilical vein as well as splenomegaly indicating portal hypertension. Esophageal varices are present. 3. There is a moderate to large amount of ascites throughout the abdomen and pelvis. 4. Bowel loops are nondilated. There is a mild edema of the wall of the cecum and right colon, possibly passive congestion. No pneumoperitoneum or abscess is seen. Electronically signed by: Jeff Mclain MD 06/15/23 03:41 AM Paracentesis Ultrasound 06/16/23 12:30 ULTRASOUND-GUIDED PARACENTESIS CLINICAL HISTORY: Ascites PROCEDURE: Procedure and risks were explained. Informed consent was obtained. A final timeout was completed. Sonographic examination revealed a large amount of ascites. A pocket was identified in the left lower quadrant. The left lower quadrant was prepped and draped in sterile fashion. 1% buffered lidocaine was utilized for skin anesthesia. Utilizing ultrasound guidance, a 5 Wallisian safety centesis catheter was introduced into the pocket and 4800 ml of yellow ascites fluid was drained and discarded. Ultrasound images were obtained. The catheter was removed. Postprocedural scanning showed significant decrease in the amount of ascites. The patient tolerated the procedure well. Vital signs will be monitored on the floor. IMPRESSION: Ultrasound guided paracentesis as described above. Performed, dictated, and signed by Ivan Lyman PA-C; to be co-signed by Dr. Manjeet Gonzales. Electronically signed by: Manjeet Gonzales M.D. 06/16/2023 3:10 PM
[2023-06-20 08:04] LABS: Hematocrit (blood only) 36.2 % (37.0-47.0); Hemoglobin 12.2 g/dl (12.0-16.0); Mean Corpuscular Hemoglobin 30.3 pg (25.0-34.0); Mean Corpuscular Hgb Conc 33.7 g/dL (32.0-36.0); Mean Corpuscular Volume 89.8 fL (80.0-100.0); Mean Platelet Volume 9.5 fL (9.4-12.4); Platelet Count 151 K/uL (130-400); RDW Coefficient of Variation 19.3 % (11.5-14.5); RDW Standard Deviation 62.4 fL (36.4-46.3); Red Blood Count 4.03 M/uL (4.20-5.40); White Blood Count 7.03 K/ul (4.8-10.8)
[2023-06-20 08:20] LABS: Calcium 7.8 mg/dl (8.6-10.3); Creatinine Clr Calc Pharmacy 43.9 ml/min; Est GFR (African American) 65.2 ml/min; Est GFR (Non-African American) 56.2 ml/min; Potassium 4.6 mmol/L (3.5-5.1)
[2023-06-20] MEDS: HEPARIN SOD 5,000 UNIT/0.5 ML VIAL SQ SCH ×2 (09:07→20:37)
[2023-06-20] MEDS: POLYETHYLENE (MIRALAX) 17 GM PACK PO SCH (09:07)
[2023-06-20] MEDS: MAGNESIUM OXIDE 400 MG TAB PO SCH (09:07)
[2023-06-20] MEDS: FUROSEMIDE 40 MG TAB PO SCH (09:07)
--- NOTE | 2023-06-20 15:23 | Ultrasound Report ---
ULTRASOUND-GUIDED PARACENTESIS CLINICAL HISTORY: Ascites PROCEDURE: Procedure and risks were explained. Informed consent was obtained. A final timeout was com pleted. The left lower quadrant was prepped and draped in sterile fashion. 1% buffered lidocaine was utilized for skin anesthesia. Utilizing ultrasound guidance, a 5 Panamanian safety centesis catheter was advanced into the left lower q uadrant pocket of ascites. Ultrasound images were obtained. A total of 3.9 L of yellow ascites fluid was removed and discarded. The catheter was removed and Band-Aid applied. The patient tolerated the p rocedure well. Vital signs will be monitored prior to discharge. IMPRESSION: Ultrasound-guided paracentesis as above. Performed, dictated, and signed by Ivan Lyman PA-C; to be co-signed by Dr. Manjeet Gonzales. Electronically signed by: Manjeet Gonzales M.D. 06/20/2023 3:24 PM
--- NOTE | 2023-06-20 16:54 | Hospitalist Progress Note ---
Date of Service June 20, 2023 Assessment & Plan (1) Abdominal pain: Plan: 72-year-old female with PMH of prediabetes, COVID, liver mass suggestive of metastatic adenocarcinoma, unknown primary currently not receiving treatment, recurrent ascites requiring weekly paracenteses, last paracentesis couple of days prior to admission but fluid in the abdomen began filling up fast. She was having severe abdominal pain / 10 in severity radiating to back which prompted her to come to the ER. Abdominal pain From liver mass with stretching of capsule and complicated by ascites Pain appears to be controlled with current regimen Severe protein calorie malnutrition Significant weight loss with BMI of 21.5 kg per metered squared Nutritional support Liver mass Metastatic adenocarcinoma unknown primary Patient decided for no chemotherapy Following with palliative care Dr. Haji and also heme-onc Dr. Christos Dangelo Inpatient palliative care consulted Discussed plan of care with patient today, she wishes to proceed with home hospice at discharge. With patient's permission, also discussed with her son Rafael. Ascites Secondary to malignancy Currently getting weekly paracentesis and fluid is reaccumulating quickly 06/16-paracentesis for 4.8 L Outpatient palliative care suggested abdominal Pleurx catheter prior to hospice care Continue home Lasix, monitor for volume overload Care coordinated with [facility] for abdominal pleurX tube placement with IR, discussed again over the phone today -- appt at [address] at [facility] on 06/25 (needs to be at facility by 1:45pm) - hold lasix and heparin morning of procedure. [facility] to review plan Friday Patient's outpatient palliative care physician, Dr. Haji updated regarding plan. CM updated as well who will arrange for home hospice services to start 06/26. Due to increased ascites and abd pain today (06/20), care coordinated with IR and patient underwent a therapeutic paracentesis with removal of 3.9 L fluid Hyponatremia Chronic, baseline sodium high 120s-low 130s Likely due to underlying suspected liver malignancy and poor p.o. intake Nephrology consulted -received Lasix 10 mg IV x 1 dose, home dose Lasix 40 mg continued, 1.5L FR Na+ 130 today History of hypercalcemia Last admission received Zometa and fluids DVT PROPHYLAXIS SQ heparin Admission and Anticipated Discharge Date Admission Date: June 15, 2023 Supervising Physician Co-Signing Physician Notes Pt seen and examined by myself, Renata Macias MD on the day of service. Care was coordinated with Carli Mclain PA-C. Please refer to her note for additional information. 72yoF with Hx that includes metastatic cancer, abdominal mass and ascites. Requesting nonnarcotic pain meds, heat pad. Otherwise as above. Subjective Seen in follow-up in [place]-2 for ascites, suspected underlying liver malignancy. Patient more painful today in abdomen, more fluid. Also noting more fluid near ankles. Does not like effects of Dilaudid and other pain medications. Discussed plan for abdominal Pleurx placement at [facility] next Friday and discussed specific catheter in more detail. Agreeable to hospice services after discharge. Denies abdominal pain and nausea. No F/C, dysuria. Some lower extremity swelling. Review of Systems Review of Systems: At least ten systems reviewed and negative except as noted in the HPI. Physical Exam Physical Exam: Gen: WD/WN, NAD, sitting at side of bed, A&Ox3 HEENT: Normocephalic, atraumatic, conjunctivae moist, sclerae anicteric, mucous membranes moist Lung: Clear to Auscultation bilaterally, no wheezes/rales/rhonchi Heart: Regular rate, regular rhythm, no murmurs, rubs, or gallops Abdomen: Distended, jesica-firm with appearance of ascites, tender to palpation throughout. +BS x 4 Extremities: 1+ BLE edema Skin: Warm, no rash Results & Data Results & Data Vital Signs (Past 12 Hours) Vital Signs Temp Pulse Resp BP Pulse Ox O2 Del Method 06/20/23 15:55 36.6 C 78 19 102/71 99 Room Air 06/20/23 07:08 36.5 C 70 18 94/53 L 98 Room Air Laboratory Results Short CBC 06/20/23 Range/Units 07:49 WBC 7.03 (4.8-10.8) K/ul Hgb 12.2 (12.0-16.0) g/dl Hct 36.2 L (37.0-47.0) % Plt Count 151 (130-400) K/uL BMP 06/20/23 07:49 Sodium 130 L Potassium 4.6 Chloride 106 Carbon Dioxide 16 L BUN 52 H Creatinine 1.00 Glucose 109 H Calcium 7.8 L Diagnostic Findings Abdomen/Pelvis CT 08/20/23 01:34 Exam(s): CT ABDOMEN + PELVIS With Contrast IV Amt: 92 cc's optiray 320 EXAM: CT Abdomen and Pelvis With Intravenous Contrast CLINICAL HISTORY: Reason for exam: abd pain, liver mass, ascites. TECHNIQUE: Axial computed tomography images of the abdomen and pelvis with intravenous contrast. CTDI is 18.96 mGy and DLP is 1010.67 mGy-cm. Automated exposure control was utilized for the study. A dose lowering technique was utilized adhering to the principles of ALARA. CONTRAST: Patient received 92 cc's optiray 320 of IV contrast COMPARISON: June 04, 2023 FINDINGS: Lung bases: Small amount of right lung base atelectasis. ABDOMEN: Liver: There is a very large heterogenous mass lesion occupying the right lobe of the liver, caudate lobe, and the central aspect of the left liver lobe measuring approximate 22 cm transverse by 17 cm AP by 17 cm craniocaudad. The intrahepatic IVC is surrounded and compressed by the mass measuring 6 mm transverse diameter. Gallbladder and bile ducts: Unremarkable. No calcified stones. No ductal dilation. Pancreas: Unremarkable. No mass. No ductal dilation. Spleen: See below. Adrenals: Unremarkable. No mass. Kidneys and ureters: Unremarkable. No solid mass. No hydronephrosis. Stomach and bowel: Unremarkable. No obstruction. No mucosal thickening. PELVIS: Appendix: No findings to suggest acute appendicitis. Bladder: Unremarkable. No mass. Reproductive: Unremarkable as visualized. ABDOMEN and PELVIS: Intraperitoneal space: There is a moderate to large amount of ascites throughout the abdomen and pelvis. Bowel loops are nondilated. There is a mild edema of the wall of the cecum and right colon, possibly passive congestion. No pneumoperitoneum or abscess is seen. Bones/joints: Mild to moderate multilevel degenerative changes throughout the spine. No acute fracture or subluxation is seen. Multiple small lytic lesions are seen in the spinous process of L3 which could represent metastasis or an osseous hemangioma. Soft tissues: Unremarkable. Vasculature: The portal vein is mildly dilated measuring 16 mm. The right hepatic vein is partially thrombosed the left hepatic vein is patent. There is a recanalized paraumbilical vein as well as splenomegaly indicating portal hypertension. Esophageal varices are present. The abdominal aorta is mildly calcified but nondilated. Lymph nodes: Unremarkable. No enlarged lymph nodes. IMPRESSION: 1. There is a very large heterogenous mass lesion occupying the right lobe of the liver, caudate lobe, and the central aspect of the left liver lobe measuring approximate 22 cm transverse by 17 cm AP by 17 cm craniocaudad. 2. The portal vein is mildly dilated measuring 16 mm. The right hepatic vein is partially thrombosed the left hepatic vein is patent. There is a recanalized paraumbilical vein as well as splenomegaly indicating portal hypertension. Esophageal varices are present. 3. There is a moderate to large amount of ascites throughout the abdomen and pelvis. 4. Bowel loops are nondilated. There is a mild edema of the wall of the cecum and right colon, possibly passive congestion. No pneumoperitoneum or abscess is seen. Electronically signed by: Jeff Mclain MD 06/15/23 03:41 AM Paracentesis Ultrasound 06/16/23 12:30 ULTRASOUND-GUIDED PARACENTESIS CLINICAL HISTORY: Ascites PROCEDURE: Procedure and risks were explained. Informed consent was obtained. A final timeout was completed. Sonographic examination revealed a large amount of ascites. A pocket was identified in the left lower quadrant. The left lower quadrant was prepped and draped in sterile fashion. 1% buffered lidocaine was utilized for skin anesthesia. Utilizing ultrasound guidance, a 5 Iranian safety centesis catheter was introduced into the pocket and 4800 ml of yellow ascites fluid was drained and discarded. Ultrasound images were obtained. The catheter was removed. Postprocedural scanning showed significant decrease in the amount of ascites. The patient tolerated the procedure well. Vital signs will be m onitored on the floor. IMPRESSION: Ultrasound guided paracentesis as described above. Performed, dictated, and signed by Ivan Lyman PA-C; to be co-signed by Dr. Manjeet Gonzales. Electronically signed by: Manjeet Gonzales M.D. 06/16/2023 3:10 PM Paracentesis Ultrasound 06/20/23 11:15 ULTRASOUND-GUIDED PARACENTESIS CLINICAL HISTORY: Ascites PROCEDURE: Procedure and risks were explained. Informed consent was obtained. A final timeout was completed. The left lower quadrant was prepped and draped in sterile fashion. 1% buffered lidocaine was utilized for skin anesthesia. Utilizing ultrasound guidance, a 5 Iranian safety centesis catheter was advanced into the left lower quadrant pocket of ascites. Ultrasound images were obtained. A total of 3.9 L of yellow ascites fluid was removed and discarded. The catheter was removed and Band-Aid applied. The patient tolerated the procedure well. Vital signs will be monitored prior to discharge. IMPRESSION: Ultrasound-guided paracentesis as above. Performed, dictated, and signed by Ivan Lyman PA-C; to be co-signed by Dr. Manjeet Gonzales. Electronically signed by: Manjeet Gonzales M.D. 06/20/2023 3:24 PM
[2023-06-21] MEDS: ACETAMINOPHEN 500 MG TAB PO PRN ×4 (02:28→21:04)
[2023-06-21] MEDS ORDERED: OPTIRAY 320 100ml IV ONE (04:00)
[2023-06-21] MEDS ORDERED: ACETAMINOPHEN 1,000 MG/100 ML VIAL IV STA (05:21)
[2023-06-21] MEDS: ONDANSETRON INJ 2 MG/ML 2 ML VIAL IV PRN ×2 (06:02→21:05)
--- NOTE | 2023-06-21 07:43 | CT Scan Report ---
Exam(s): CT ABDOMEN + PELVIS With Contrast IV Amt: 93 ML EXAM: CT Abdomen and Pelvis With Intravenous Contrast CLINICAL HISTORY: Reason for exam: worsening abd pain. TECHNIQUE: Axial computed tomography images of the abdomen and pelvis with intravenous contrast. CTDI is 11.97 mGy and DLP is 609.51 mGy-cm. Automated exposure control was utilized for the study. A dose lowering technique was utilized adhering to the principles of ALARA. CONTRAST: Patient received 93 ML of IV contrast COMPARISON: CT Abdomen Pelvis dated june 15 2023 FINDINGS: Lung bases: Unremarkable. No mass. No consolidation. ABDOMEN: Liver: Enlarged dominant confluent multifocal mass within the liver measuring up to 18.5 cm, not cyclically change from prior study. Additional smaller masses noted. Findings are favored to relate to sequelae of primary cellular neoplasm with multifocal HCC or metastatic disease. Gallbladder and bile ducts: Unremarkable. No calcified stones. No ductal dilation. Pancreas: Unremarkable. No mass. No ductal dilation. Spleen: The spleen measures 14.2 cm in maximum dimension. Scattered hypodensities within the periphery of the spleen which likely relate to developing splenic infarctions. These are also noted on prior study. Adrenals: Unremarkable. No mass. Kidneys and ureters: Unremarkable. No solid mass. No hydronephrosis. Stomach and bowel: Unremarkable. No obstruction. No mucosal thickening. PELVIS: Appendix: No findings to suggest acute appendicitis. Bladder: Unremarkable. No mass. Reproductive: Unremarkable as visualized. ABDOMEN and PELVIS: Intraperitoneal space: Large right mesenteric ascites which may be due to sequelae of portal hypertension. Metastatic ascites also possible. No free air. Bones/joints: Degenerative changes in the spine. No acute fracture. No dislocation. Soft tissues: Unremarkable. Vasculature: Atherosclerotic disease. Dilated left pelvic veins. Lymph nodes: Unremarkable. No enlarged lymph nodes. IMPRESSION: 1. No history of malignancy was provided. 2. Enlarged dominant confluent multifocal mass within the liver measuring up to 18.5 cm, not cyclically change from prior study. Additional smaller masses noted. Findings are favored to relate to sequelae of primary cellular neoplasm with multifocal HCC or metastatic disease. 3. Scattered hypodensities within the periphery of the spleen which likely relate to developing splenic infarctions. These are also noted on prior study. 4. Recommend continued attention on follow-up imaging as dictated per patient's primary malignancy. Electronically signed by: Ivan Cheung MD 06/21/23 07:42 AM
[2023-06-21 08:06] LABS: Hematocrit (blood only) 34.8 % (37.0-47.0); Hemoglobin 11.7 g/dl (12.0-16.0); Mean Corpuscular Hemoglobin 30.2 pg (25.0-34.0); Mean Corpuscular Hgb Conc 33.6 g/dL (32.0-36.0); Mean Corpuscular Volume 89.7 fL (80.0-100.0); Mean Platelet Volume 10.4 fL (9.4-12.4); Platelet Count 162 K/uL (130-400); RDW Coefficient of Variation 18.9 % (11.5-14.5); Red Blood Count 3.88 M/uL (4.20-5.40); White Blood Count 6.73 K/ul (4.8-10.8)
[2023-06-21] MEDS: POLYETHYLENE (MIRALAX) 17 GM PACK PO SCH (08:17)
[2023-06-21] MEDS: HEPARIN SOD 5,000 UNIT/0.5 ML VIAL SQ SCH ×2 (08:17→19:33)
[2023-06-21] MEDS: MAGNESIUM OXIDE 400 MG TAB PO SCH (09:14)
[2023-06-21 09:27] LABS: Albumin Globulin Ratio 1.1 (0.9-2); Albumin Level 2.8 gm/dl (3.4-5.0); BUN Creatinine Ratio 50.5 (10-20); Bilirubin,Total 0.7 mg/dl (0.2-1.0); Calcium 7.7 mg/dl (8.6-10.3); Creatinine Clr Calc Pharmacy 44.4 ml/min; Est GFR (Non-African American) 56.9 ml/min; Globulin 2.5 gm/dl (2.5-4.0); Potassium 4.5 mmol/L (3.5-5.1); Total Protein 5.3 gm/dl (6.0-8.3)
[2023-06-21] MEDS: FUROSEMIDE 40 MG TAB PO SCH (10:42)
[2023-06-21] MEDS: KETOROLAC TROMETHAMINE 15 MG/ML VIAL IV PRN ×2 (13:18→19:32)
--- NOTE | 2023-06-21 23:47 | Hospitalist Progress Note ---
Date of Service June 21, 2023 Assessment & Plan (1) Abdominal pain: Plan: 72-year-old female with PMH of prediabetes, COVID, liver mass suggestive of metastatic adenocarcinoma, unknown primary currently not receiving treatment, recurrent ascites requiring weekly paracenteses, last paracentesis couple of days prior to admission but fluid in the abdomen began filling up fast. She was having severe abdominal pain 8 / 10 in severity radiating to back which prompted her to come to the ER. Abdominal pain From liver mass with stretching of capsule and complicated by ascites Pain appears to be controlled with current regimen- pt requesting nonnarcotic meds, toradol added (pt states it does not matter if she bleeds), tylenol made 1000mg TID CT abd/pelvis showing possible splenic infarcts. Pt states that there is not much she will do about it as she is currently not going to treat. Severe protein calorie malnutrition Significant weight loss with BMI of 21.5 kg per metered squared Nutritional support Liver mass Metastatic adenocarcinoma unknown primary Patient decided for no chemotherapy Following with palliative care Dr. Haji and also heme-onc Dr. Christos Dangelo Inpatient palliative care consulted Discussed plan of care with patient today, she wishes to proceed with home hospice at discharge. With patient's permission, also discussed with her son Rafael. Ascites Secondary to malignancy Currently getting weekly paracentesis and fluid is reaccumulating quickly 06/16-paracentesis for 4.8 L Outpatient palliative care suggested abdominal Pleurx catheter prior to hospice care Continue home Lasix, monitor for volume overload Care coordinated with [facility] for abdominal pleurX tube placement with IR, discussed again over the phone today -- appt at 3pm at [facility] on 06/25 (needs to be at facility by 1:45pm) - hold lasix and heparin [facility] Patient's outpatient palliative care physician, Dr. Haji updated regarding plan. CM updated as well who will arrange for home hospice services to start 06/26. Due to increased ascites and abd pain today (06/20), care coordinated with IR and patient underwent a therapeutic paracentesis with removal of 3.9 L fluid Hyponatremia Chronic, baseline sodium high 120s-low 130s Likely due to underlying suspected liver malignancy and poor p.o. intake Nephrology consulted -received Lasix 10 mg IV x 1 dose, home dose Lasix 40 mg continued, 1.5L FR Na+ 130 today History of hypercalcemia Last admission received Zometa and fluids DVT PROPHYLAXIS SQ heparin Admission and Anticipated Discharge Date Admission Date: June 15, 2023 Subjective Pt seen today. Requesting nonnarcotic pain meds. Overnight had abd pain and CT abd/pelvis was ordered, States the pain is stable. Review of Systems Review of Systems: All systems reviewed & are unremarkable except as noted in Subjective Physical Exam Physical Exam: General: Alert, oriented. No acute distress Psych: Sad mood and affect Neuro: difficulty moving HEENT: NC/AT CV: RRR Resp: Breath sounds decreased bilaterally, no increased effort of breathing. Abdomen: . distended. Extremities: No edema in lower extremities bilaterally. Results & Data Results & Data Vital Signs (Past 12 Hours) Vital Signs Temp Pulse Resp BP Pulse Ox O2 Del Method 06/21/23 07:21 36.5 C 61 18 97/59 L 97 Room Air 06/20/23 21:05 106/68
[2023-06-22] MEDS ORDERED: PROMETHAZINE HCL 6.25 MG in SODIUM CHLORIDE 0.9% 50 ML IV PRN (00:38)
[2023-06-22 05:55] LABS: Basophils # (auto) 0.03 K/uL (0.00-0.20); Basophils % (auto) 0.4 %; Eosinophils # (auto) 0.04 K/uL (0.00-0.50); Eosinophils % (auto) 0.6 %; Hematocrit (blood only) 35.6 % (37.0-47.0); Hemoglobin 11.7 g/dl (12.0-16.0); Immature Granulocytes # (auto) 0.04 K/uL (0.01-0.20); Immature Granulocytes % (auto) 0.6 %; Lymphocytes # (auto) 0.76 K/uL (1.20-3.40); Lymphocytes % (auto) 10.5 %; Mean Corpuscular Hemoglobin 29.8 pg (25.0-34.0); Mean Corpuscular Hgb Conc 32.9 g/dL (32.0-36.0); Mean Corpuscular Volume 90.6 fL (80.0-100.0); Mean Platelet Volume 9.9 fL (9.4-12.4); Monocytes # (auto) 0.52 K/uL (0.11-0.59); Monocytes % (auto) 7.2 %; Neutrophils # (auto) 5.88 K/uL (1.40-6.50); Neutrophils % (auto) 80.7 %; Platelet Count 151 K/uL (130-400); RDW Coefficient of Variation 19.4 % (11.5-14.5); RDW Standard Deviation 63.2 fL (36.4-46.3); Red Blood Count 3.93 M/uL (4.20-5.40); White Blood Count 7.27 K/ul (4.8-10.8)
[2023-06-22 06:14] LABS: BUN Creatinine Ratio 39.6 (10-20); Calcium 7.7 mg/dl (8.6-10.3); Creatinine Clr Calc Pharmacy 30.5 ml/min; Est GFR (African American) 41.9 ml/min; Est GFR (Non-African American) 36.2 ml/min; Potassium 4.8 mmol/L (3.5-5.1)
[2023-06-22] MEDS: MAGNESIUM OXIDE 400 MG TAB PO SCH (07:30)
[2023-06-22] MEDS: POLYETHYLENE (MIRALAX) 17 GM PACK PO SCH (07:30)
[2023-06-22] MEDS: FUROSEMIDE 40 MG TAB PO SCH (07:30)
[2023-06-22] MEDS: HEPARIN SOD 5,000 UNIT/0.5 ML VIAL SQ SCH ×2 (08:08→20:00)
[2023-06-22] MEDS: ACETAMINOPHEN 500 MG TAB PO PRN ×2 (11:22→20:00)
--- NOTE | 2023-06-22 11:48 | Hospitalist Progress Note ---
Date of Service June 22, 2023 Assessment & Plan (1) Abdominal pain: Plan: 72-year-old female with PMH of prediabetes, COVID, liver mass suggestive of metastatic adenocarcinoma, unknown primary currently not receiving treatment, recurrent ascites requiring weekly paracenteses, last paracentesis couple of days prior to admission but fluid in the abdomen began filling up fast. She was having severe abdominal pain / in severity radiating to back which prompted her to come to the ER. Abdominal pain Likely from liver mass with stretching of capsule and complicated by ascites Pain appears to be controlled with current regimen- pt requesting nonnarcotic meds. Toradol was added to her tylenol, however had an NICOLE this AM after receiving two doses and is currently being held. Pt previously stated it does not matter if she bleeds. Has dilaudid and oxycodone ordered for severe pain, daily scheduled miralax. Would prefer alternatives-consider medications such as lyrica or gabapentin, bentyl. CT abd/pelvis showing possible splenic infarcts. Pt states that there is not much she will do about it as she is currently not going to treat. Care coordinated with [facility] for abdominal pleurX tube placement with IR-- appt at 3pm at [facility] on 06/25 (needs to be at facility by 1:45pm) - hold lasix and heparin morning of procedure. Ascites Secondary to malignancy Currently getting weekly paracentesis and fluid is reaccumulating quickly 06/16-paracentesis for 4.8 L Outpatient palliative care suggested abdominal Pleurx catheter prior to hospice care Continue home Lasix, monitor for volume overload Care coordinated with [facility] for abdominal pleurX tube placement with IR, discussed again over the phone today -- appt at 3pm at [facility] on 06/25 (needs to be at facility by 1:45pm) - hold lasix and heparin morning of procedure[facility] Friday Patient's outpatient palliative care physician, Dr. Haji updated regarding plan. CM updated as well who will arrange for home hospice services to start 06/26. Due to increased ascites and abd pain on 06/20, care coordinated with IR and patient underwent a therapeutic paracentesis with removal of 3.9 L fluid Continue to monitor for need for repeat therapeutic paracentesis Liver mass Metastatic adenocarcinoma unknown primary Patient decided no chemotherapy Following with palliative care Dr. Haji and also heme-onc Dr. Christos Dangelo Inpatient palliative care consulted Previous provider discussed plan of care with patient, she wishes to proceed with home hospice at discharge. With patient's permission, it was also discussed with her son Rafael. NICOLE Cr of 1.44, up from 0.99 the day before Noted on 06/22. Pt desirous of nonnarcotic options to treat pain and received 2 doses of toradol. Also on daily lasix, and the combination of the two medications was a possible cause Given concern for fluid overload as noted above, will discontinue the toradol with no fluids for now. Repeat BMP in 6 hours and in the AM, if Cr still elevated consider a small amount of very gentle hydration Severe protein calorie malnutrition Significant weight loss with BMI of 21.5 Nutritional support Hyponatremia Chronic, baseline sodium high 120s-low 130s Likely due to underlying suspected liver malignancy and poor p.o. intake Nephrology consulted -received Lasix 10 mg IV x 1 dose, home dose Lasix 40 mg continued, 1.5L FR Sodium stable History of hypercalcemia Last admission received Zometa and fluids Insomnia Added trazodone and melatonin as needed at night to help with sleep DVT PROPHYLAXIS SQ heparin Admission and Anticipated Discharge Date Admission Date: June 15, 2023 Subjective Pt seen today. States that it was a rough night and had some trouble sleeping. Otherwise denies acute concerns. Would like her pain managed with non-narcotics as much as possible. Review of Systems Review of Systems: All systems reviewed & are unremarkable except as noted in Subjective Physical Exam Physical Exam: General: Alert, oriented. No acute distress Psych: appropriate mood and affect Neuro: difficulty moving HEENT: NC/AT CV: RRR Resp: Breath sounds decreased bilaterally, no increased effort of breathing. Abdomen: tender and distended. Extremities: No edema in lower extremities bilaterally. Results & Data Results & Data Vital Signs (Past 12 Hours) Vital Signs Temp Pulse Resp BP Pulse Ox O2 Del Method 06/22/23 07:15 Room Air 06/22/23 07:34 36.5 C 66 18 93/55 L 98 Room Air
[2023-06-22] MEDS ORDERED: traZODone HCL 50 MG TAB PO PRN (11:49)
[2023-06-22] MEDS ORDERED: MELATONIN 3 MG TAB PO PRN (11:49)
[2023-06-22] MEDS ORDERED: DICYCLOMINE HCL 10 MG CAP PO ONE (14:30)
[2023-06-22] MEDS ORDERED: LIDOCAINE 5% 1 PATCH TD STA (14:31)
[2023-06-22] MEDS ORDERED: METHOCARBAMOL 500 MG TABLET PO PRN (14:33)
[2023-06-22 14:41] LABS: BUN Creatinine Ratio 38.6 (10-20); Calcium 7.9 mg/dl (8.6-10.3); Creatinine Clr Calc Pharmacy 28.7 ml/min; Est GFR (Non-African American) 33.6 ml/min
[2023-06-22] MEDS: HYDROmorphone INJ 0.5 MG/0.5 ML SYR IV PRN (23:24)
[2023-06-23 07:54] LABS: Basophils # (auto) 0.03 K/uL (0.00-0.20); Basophils % (auto) 0.3 %; Eosinophils # (auto) 0.03 K/uL (0.00-0.50); Eosinophils % (auto) 0.3 %; Hematocrit (blood only) 39.2 % (37.0-47.0); Immature Granulocytes % (auto) 1.1 %; Lymphocytes # (auto) 0.75 K/uL (1.20-3.40); Lymphocytes % (auto) 8.5 %; Mean Corpuscular Hemoglobin 30.8 pg (25.0-34.0); Mean Corpuscular Hgb Conc 33.2 g/dL (32.0-36.0); Mean Corpuscular Volume 92.9 fL (80.0-100.0); Mean Platelet Volume 10.2 fL (9.4-12.4); Monocytes # (auto) 0.58 K/uL (0.11-0.59); Monocytes % (auto) 6.6 %; Neutrophils # (auto) 7.34 K/uL (1.40-6.50); Neutrophils % (auto) 83.2 %; Platelet Count 157 K/uL (130-400); RDW Coefficient of Variation 19.6 % (11.5-14.5); RDW Standard Deviation 65.3 fL (36.4-46.3); Red Blood Count 4.22 M/uL (4.20-5.40); White Blood Count 8.83 K/ul (4.8-10.8)
[2023-06-23 08:10] LABS: BUN Creatinine Ratio 38.9 (10-20); Creatinine Clr Calc Pharmacy 27.1 ml/min; Est GFR (African American) 36.4 ml/min; Est GFR (Non-African American) 31.4 ml/min; Potassium 5.3 mmol/L (3.5-5.1)
[2023-06-23] MEDS: HEPARIN SOD 5,000 UNIT/0.5 ML VIAL SQ SCH ×2 (08:10→20:27)
[2023-06-23] MEDS: MAGNESIUM OXIDE 400 MG TAB PO SCH (08:15)
[2023-06-23] MEDS: POLYETHYLENE (MIRALAX) 17 GM PACK PO SCH (08:15)
[2023-06-23] MEDS: FUROSEMIDE 40 MG TAB PO SCH (08:15)
[2023-06-23] MEDS: ACETAMINOPHEN 500 MG TAB PO PRN ×2 (08:19→17:54)
--- NOTE | 2023-06-23 08:39 | Hospitalist Progress Note ---
Date of Service June 23, 2023 Assessment & Plan (1) Abdominal pain: Plan: 72-year-old female with PMH of prediabetes, COVID, liver mass suggestive of metastatic adenocarcinoma, unknown primary currently not receiving treatment, recurrent ascites requiring weekly paracenteses, last paracentesis couple of days prior to admission but fluid in the abdomen began filling up fast. She was having severe abdominal pain 8 / 10 in severity radiating to back which prompted her to come to the ER. Abdominal pain Likely from liver mass with stretching of capsule and complicated by ascites Pain appears to be controlled with current regimen- pt requesting nonnarcotic meds. Toradol was added to her tylenol, and this was held with NICOLE. DC per nephrology and avoid if possible. Has dilaudid and oxycodone ordered for severe pain, daily scheduled miralax. She is fine with trying oral dilaudid, prefers to avoid oxycodone 2/[address] abd/pelvis showing possible splenic infarcts. Pt states that there is not much she will do about it as she is currently not going to treat. Care coordinated with [facility] for abdominal pleurX tube placement with IR-- appt at 3pm at [facility] on 06/25 (needs to be at facility by 1:45pm) - hold lasix and heparin morning of procedure. Ascites Secondary to malignancy Currently getting weekly paracentesis and fluid is reaccumulating quickly 06/16-paracentesis for 4.8 L Outpatient palliative care suggested abdominal Pleurx catheter prior to hospice care Lasix on hold in setting of NICOLE Due to increased ascites and abd pain on 06/20, care coordinated with IR and patient underwent a therapeutic paracentesis with removal of 3.9 L fluid Continue to monitor for need for repeat therapeutic paracentesis Liver mass Metastatic adenocarcinoma unknown primary Patient decided no chemotherapy Following with palliative care Dr. Haji and also heme-onc Dr. Christos Dangelo Inpatient palliative care consulted Previous provider discussed plan of care with patient, she wishes to proceed with home hospice at discharge. NICOLE Worsening creatinine, nephrology consulted. Hold Lasix, avoid combination of Toradol and Lasix, likely cause of this NICOLE Trend BMP in am. Hyperkalemia Likely related to administration of potassium supplements and NSAIDs in setting of NICOLE Expect to improve with resolution of NICOLE Avoid potassium supplementation. Severe protein calorie malnutrition Significant weight loss with BMI of 21.5 2/2 malignancy Nutritional support Hyponatremia Chronic, baseline sodium high 120s-low 130s Likely due to underlying suspected liver malignancy and poor p.o. intake Nephrology consulted -received Lasix 10 mg IV x 1 dose, home dose Lasix 40 mg continued, 1.5L FR Sodium stable but remains low. History of hypercalcemia Last admission received Zometa and fluids, this remains normal. Insomnia Added trazodone and melatonin as needed at night to help with sleep DVT PROPHYLAXIS SQ heparin DNR/DNI Dispo-to home Wed. I spent a total [id number] coordinating, documenting, and providing care for this patient excluding time spent in the performance of separately billed services. Caryl Del Castillo DO [facility] Ad[facility] and Anticipated Discharge Date Admission Date: June 15, 2023 Subjective 72 yo F with known metastatic adenocarcinoma of unknown primary presents wtih abdominal pain with ascites 2/2 malignancy Today she reports finally getting some sleep overnight as a result of the dilaudid IV We discussed pain options and she preferred to try this in an oral form that she may be able to take at home I did communicate with here outpatient palliative care physician who didn't have a preference in regimen for her at this time. Renal function worsening on labwork today-consulted nephrology ongoing but stable hyponatremia. Awaiting discharge on Fri when an IR -guided abdominal PleurX catheter will be placed. Physical Exam Physical Exam: CONSTITUTIONAL: thin, frail, vitals as above, generally appears chronically ill, NAD EYES: normal conjunctivae, no scleral icterus ENT: external ear and nose normal, MMM NECK: trachea midline, RESPIRATORY: clear to auscultation bilaterally, no crackles, rales or wheezes, normal respiratory effort CARDIOVASCULAR: regular rate and rhythm, S1 and 2 heard without murmurs, gallops or rubs, no JVD, no peripheral edema CHEST: inspection of chest was normal GASTROINTESTINAL: soft, nontender, ND, no guarding MUSCULOSKELETAL: gen weakness without focality, head is normocephalic and atraumatic SKIN: warm and dry NEUROLOGIC: CN 2-12 grossly intact, no sensory deficit, normal cognition, normal speech, no tremor PSYCHIATRIC: alert cooperative and oriented Results & Data Results & Data Vital Signs (Past 12 Hours) Vital Signs Temp Pulse Resp BP Pulse Ox O2 Del Method 06/23/23 07:44 36.6 C 67 16 107/61 98 Room Air Laboratory Results Short CBC 06/23/23 Range/Units 07:09 WBC 8.83 (4.8-10.8) K/ul Hgb 13.0 (12.0-16.0) g/dl Hct 39.2 (37.0-47.0) % Plt Count 157 (130-400) K/uL BMP 06/22/23 06/23/23 13:58 07:09 Sodium 128 L 129 L Potassium 5.0 5.3 H Chloride 103 102 Carbon Dioxide 13 L 17 L BUN 59 H 63 H Creatinine 1.53 H 1.62 H Glucose 114 H 85 Calcium 7.9 L 8.0 L Medications Administered Current Inpatient Medications Acetaminophen (Acetaminophen 500 Mg Tab) 1,000 mg PO Q8H PRN PRN Reason: Pain or Fever Stop: 07/21/23 20:45 Last Admin: 06/23/23 08:19 Dose: 1,000 mg Furosemide (Furosemide 40 Mg Tab) 40 mg PO QAM [facility] Stop: 07/15/23 08:59 Last Admin: 06/23/23 08:15 Dose: 40 mg Heparin Sodium (Porcine) (Heparin Sod 5,000 Unit/0.5 Ml Vial) 5,000 units SQ Q12 [facility] Stop: 07/15/23 08:59 Last Admin: 06/23/23 08:10 Dose: Not Given Hydromorphone HCl (Hydromorphone Inj 0.5 Mg/0.5 Ml Syr) 0.5 mg IV Q3H PRN PRN Reason: Severe Pain (Scale 7, 8, 9,10) Stop: 06/29/23 05:40 Last Admin: 06/22/23 23:24 Dose: 0.5 mg Promethazine HCl 6.25 mg/ (Sodium Chloride) 50.25 mls @ 201 mls/hr IV Q6H PRN PRN Reason: Nausea And Vomiting Stop: 07/22/23 00:37 Last Infusion: 06/22/23 01:28 Dose: Infused Magnesium Oxide (Magnesium Oxide 400 Mg Tab) 200 mg PO DAILY [facility] Stop: 07/15/23 08:59 Last Admin: 06/23/23 08:15 Dose: 200 mg Melatonin (Melatonin 3 Mg Tab) 3 mg PO HS PRN PRN Reason: Sleep Stop: 07/22/23 11:48 Methocarbamol (Methocarbamol 500 Mg Tablet) 500 mg PO TID PRN PRN Reason: back pain/muscle spasms Stop: 07/22/23 14:32 Miscellaneous (Remove Lidoderm Patch) 1 each N/A DAILY@2100 [facility] Stop: 07/22/23 20:59 Last Admin: 06/22/23 19:59 Dose: 1 each Ondansetron HCl (Ondansetron Inj 2 Mg/Ml 2 Ml Vial) 4 mg IV Q6H PRN PRN Reason: Nausea Stop: 07/15/23 05:40 Last Admin: 06/21/23 21:05 Dose: 4 mg Oxycodone HCl (Oxycodone Hcl Ir 5 Mg Tab (Immediate Release)) 5 mg PO Q6H PRN PRN Reason: Moderate Pain (Scale 4, 5, 6) Stop: 06/29/23 05:40 Last Admin: 06/18/23 05:26 Dose: 5 mg Polyethylene Glycol (Polyethylene (Miralax) 17 Gm Pack) 17 gm PO DAILY [facility] Stop: 07/19/23 09:14 Last Admin: 06/23/23 08:15 Dose: 17 gm Potassium Chloride (Potassium Chloride Crtab 20 Meq Tabcr) 20 meq PO QAM [facility] Stop: 07/15/23 08:59 Last Admin: 06/15/23 07:59 Dose: 20 meq Trazodone HCl (Trazodone Hcl 50 Mg Tab) 50 mg PO HS PRN PRN Reason: insomnia Stop: 07/22/23 20:59
[2023-06-23] MEDS: LIDOCAINE 5% 1 PATCH TD SCH (10:58)
--- NOTE | 2023-06-23 11:37 | Nephrology Progress Note ---
Date of Service June 23, 2023 Assessment & Plan (1) Metastatic adenocarcinoma to liver: Plan: Noted and reviewed. She has significant ascites and is getting a Pleurx catheter for symptomatic relief. (2) NICOLE (acute kidney injury): Plan: Secondary to combination of use of ketorolac which is a powerful NSAID with Lasix in a patient who is extremely prone to acute renal failure with her underlying liver status. We will plan to stop the Lasix for now and going forward we will try to manage the ascites mostly with Pleurx cath. As much as possible avoid ketorolac . It has now been stopped but she did get the dose on June 21. she also has high potassium but she was getting potassium supplement as well as NSAID and now has acute renal failure. We do not need to give IV fluid. She has already received today's dose of Lasix so we may not see immediate renal recovery Admission and Anticipated Discharge Date Admission Date: June 15, 2023 Subjective Asked to see the patient again. Initial consultation done June [address] Emma Epps. She has ascites but hardly any edema and she is getting Pleurx cath for ascites fluid drainage. She had ketorolac last dose being June 21 and she is on Lasix. She has very poor appetite. Physical Exam Physical Exam: Cachectic elderly female who appears to be in poor health. However she was able to give detailed account of her and mentally she is completely intact Constitutional: Mucous membrane is moist neck is supple and no JVD Respiratory: Bilateral diminished breath sound Cardiovascular: Regular rate and rhythm Gastrointestinal (Abdomen): Distended with ascites Musculoskeletal: Trace edema but as per patient less than before Results & Data Vital Signs (Past 12 Hours) Vital Signs Temp Pulse Resp BP Pulse Ox O2 Del Method 06/23/23 07:44 36.6 C 67 16 107/61 98 Room Air
[2023-06-23] MEDS: HYDROmorphone HCL 2 MG TAB PO SCH (20:26)
[2023-06-24 08:26] LABS: Basophils # (auto) 0.02 K/uL (0.00-0.20); Basophils % (auto) 0.2 %; Eosinophils # (auto) 0.03 K/uL (0.00-0.50); Eosinophils % (auto) 0.4 %; Hematocrit (blood only) 37.8 % (37.0-47.0); Hemoglobin 12.4 g/dl (12.0-16.0); Immature Granulocytes # (auto) 0.05 K/uL (0.01-0.20); Immature Granulocytes % (auto) 0.6 %; Lymphocytes # (auto) 0.68 K/uL (1.20-3.40); Lymphocytes % (auto) 8.4 %; Mean Corpuscular Hemoglobin 30.4 pg (25.0-34.0); Mean Corpuscular Hgb Conc 32.8 g/dL (32.0-36.0); Mean Corpuscular Volume 92.6 fL (80.0-100.0); Mean Platelet Volume 10.5 fL (9.4-12.4); Monocytes # (auto) 0.51 K/uL (0.11-0.59); Monocytes % (auto) 6.3 %; Neutrophils # (auto) 6.83 K/uL (1.40-6.50); Neutrophils % (auto) 84.1 %; Platelet Count 147 K/uL (130-400); RDW Coefficient of Variation 19.5 % (11.5-14.5); RDW Standard Deviation 64.6 fL (36.4-46.3); Red Blood Count 4.08 M/uL (4.20-5.40); White Blood Count 8.12 K/ul (4.8-10.8)
[2023-06-24 08:47] LABS: BUN Creatinine Ratio 45.8 (10-20); Calcium 7.9 mg/dl (8.6-10.3); Creatinine Clr Calc Pharmacy 30.5 ml/min; Est GFR (African American) 41.9 ml/min; Est GFR (Non-African American) 36.2 ml/min; Magnesium 2.5 mg/dl (1.7-2.4)
[2023-06-24] MEDS: LIDOCAINE 5% 1 PATCH TD SCH (09:55)
[2023-06-24] MEDS: HEPARIN SOD 5,000 UNIT/0.5 ML VIAL SQ SCH (09:56)
[2023-06-24] MEDS: POLYETHYLENE (MIRALAX) 17 GM PACK PO SCH (09:56)
[2023-06-24] MEDS: MAGNESIUM OXIDE 400 MG TAB PO SCH (09:56)
--- NOTE | 2023-06-24 11:43 | Nephrology Progress Note ---
Date of Service June 24, 2023 Assessment & Plan Admission and Anticipated Discharge Date Admission Date: June 15, 2023 Subjective Assessment & Plan (1) Metastatic adenocarcinoma to liver: Plan: Noted and reviewed. She has significant ascites and is getting a Pleurx catheter for symptomatic relief. (2) NICOLE (acute kidney injury): Plan: Secondary to combination of use of ketorolac which is a powerful NSAID with Lasix in a patient who is extremely prone to acute renal failure with her underlying liver status. We will plan to stop the Lasix for now and going forward we will try to manage the ascites mostly with Pleurx cath. As much as possible avoid ketorolac . It has now been stopped but she did get the dose on June 21. she also has high potassium but she was getting potassium supplement as well as NSAID and now has acute renal failure. We do not need to give IV fluid. She has already received today's dose of Lasix so we may not see immediate renal recovery K and Creat better today. Na low but stable and acceptable range of 128. As long as serum sodium is 125+ with good. She does not like to take opiates for pain control and felt that ketorolac was the best as it was able to control the pain without making her groggy. Given her status with metastatic cancer if she has to and she prefers to take ketorolac I do not have a problem as symptom management is the only thing we are doing anyway. Subjective Asked to see the patient again. Initial consultation done June [address] Emma Epps. She has ascites but hardly any edema and she is getting Pleurx cath for ascites fluid drainage. She had ketorolac last dose being June 21 and she is on Lasix. She has very poor appetite. Physical Exam Physical Exam: Cachectic elderly female who appears to be in poor health. However she was able to give detailed account of her and mentally she is completely intact Constitutional: Mucous membrane is moist neck is supple and no JVD Respiratory: Bilateral diminished breath sound Cardiovascular: Regular rate and rhythm Gastrointestinal (Abdomen): Distended with ascites Musculoskeletal: Trace edema but as per patient less than before Results & Data Vital Signs (Past 12 Hours) Vital Signs Temp Pulse Resp BP Pulse Ox O2 Del Method 06/24/23 07:38 Room Air 06/24/23 07:38 36.7 C 65 16 94/52 L 97 Room Air
--- NOTE | 2023-06-24 11:43 | Hospitalist Progress Note ---
Date of Service June 24, 2023 Assessment & Plan (1) Abdominal pain: Plan: 72-year-old female with PMH of prediabetes, COVID, liver mass suggestive of metastatic adenocarcinoma, unknown primary currently not receiving treatment, recurrent ascites requiring weekly paracenteses, last paracentesis couple of days prior to admission but fluid in the abdomen began filling up fast. She was having severe abdominal pain 8 / 10 in severity radiating to back which prompted her to come to the ER. Abdominal pain Likely from liver mass with stretching of capsule and complicated by ascites Pain appears to be controlled with current regimen- pt requesting nonnarcotic meds with is willing to take to help sleep Toradol was added to her tylenol, and this was held with NICOLE. DC per nephrology and avoid if possible. Has dilaudid at HS, daily scheduled miralax. She is fine with trying oral dilaudid, prefers to avoid oxycodone 2/[address] abd/pelvis showing possible splenic infarcts. Pt states that there is not much she will do about it as she is currently not going to treat. Care coordinated with [facility] for abdominal pleurX tube placement with IR-- appt at 3pm at [facility] on 06/25 (needs to be at facility by 1:45pm) - hold lasix and heparin morning of procedure. Will give last dose of heparin tonight - confirmed with Daughter Ashely To who will be transporting to appt,plan to D/C at 12pm CBC, CMP, MAG independently reviewed by undersigned Ascites Secondary to malignancy Currently getting weekly paracentesis and fluid is reaccumulating quickly 06/16-paracentesis for 4.8 L Outpatient palliative care suggested abdominal Pleurx catheter prior to hospice care Lasix on hold in setting of NICOLE Due to increased ascites and abd pain on 06/20, care coordinated with IR and patient underwent a therapeutic paracentesis with removal of 3.9 L fluid Continue to monitor for need for repeat therapeutic paracentesis Liver mass Metastatic adenocarcinoma unknown primary Patient decided no chemotherapy Following with palliative care Dr. Haji and also heme-onc Dr. Christos Dangelo Inpatient palliative care consulted Previous provider discussed plan of care with patient, she wishes to proceed with home hospice at discharge. NICOLE Worsening creatinine, nephrology consulted. Hold Lasix, avoid combination of Toradol and Lasix, likely cause of this NICOLE cr improving, 1.44 today Hyperkalemia Likely related to administration of potassium supplements and NSAIDs in setting of NICOLE Expect to improve with resolution of NICOLE Avoid potassium supplementation. Severe protein calorie malnutrition Significant weight loss with BMI of 21.5 2/2 malignancy Nutritional support Hyponatremia Chronic, baseline sodium high 120s-low 130s Likely due to underlying suspected liver malignancy and poor p.o. intake Nephrology consulted -received Lasix 10 mg IV x 1 dose, home lasix D/C remain off lasix and manage fluid with pleurx sodium stable History of hypercalcemia Last admission received Zometa and fluids, this remains normal. Insomnia Added trazodone and melatonin as needed at night to help with sleep DVT PROPHYLAXIS SQ heparin DNR/DNI Dispo-to home Fri. Discussed with daughter and prescription meds sent today so they are able to have for when patient is done with procedure tomorrow, plan to d/c home with hospice Pt was seen and examined in collaboration with Dr. Del Castillo, please see addendum Admission and Anticipated Discharge Date Admission Date: June 15, 2023 Supervising Physician Co-Signing Physician Notes I have seen and examined the patient and have discussed the case with the provider above. I agree with the assessment and plan as stated. She is feeling much better today although starting to feel bloated somewhat 2/2 progressive ascites. She is setup for catheter placement as noted above. She will continue with the oral dilaudid for pain control in addition to PRN APAP. She is hemodynamically stable and afebrile. She is chronically ill-appearing but in NAD. Abdomen with positive fluid wave and nontender, nondistended wtih active bowel sounds. Labs reviewed with K and creatinine better. For now we are avoiding NSAIDs. She is comfortable which is a top priority, and agree with plan as noted above. Abundio, DO Subjective Pt seen and examined in room 383-2. Follow up abd pain from Liver mass. Slept well last night with oral dilaudid. Currently has no complaints. Denies f/c/s, chest pain, sob, n/v/d. Plan is to d/c tomorrow for permanent cath placement Review of Systems Review of Systems: All systems reviewed & are unremarkable except as noted in HPI & below Physical Exam Physical Exam: Gen: WD/WN, F, thin, NAD, A&O x3 HEENT: Normocephalic, atraumatic, conjunctivae moist, sclerae anicteric, mucous membranes moist. Lung: Clear to Auscultation bilaterally, no wheezes/rales/rhonchi Heart: Regular rate, regular rhythm, no murmurs, rubs, or gallops Abdomen: Soft, NT, Distended +BS x 4 Extremities: No edema Skin: Warm, no rash, negative turgor. Results & Data Results & Data Vital Signs (Past 12 Hours) Vital Signs Temp Pulse Resp BP Pulse Ox O2 Del Method 06/24/23 07:38 Room Air 06/24/23 07:38 36.7 C 65 16 94/52 L 97 Room Air Laboratory Results Short CBC 06/24/23 Range/Units 07:59 WBC 8.12 (4.8-10.8) K/ul Hgb 12.4 (12.0-16.0) g/dl Hct 37.8 (37.0-47.0) % Plt Count 147 (130-400) K/uL BMP 06/24/23 07:59 Sodium 128 L Potassium 5.0 Chloride 104 Carbon Dioxide 16 L BUN 66 H Creatinine 1.44 H Glucose 102 H Calcium 7.9 L
[2023-06-24] MEDS: ACETAMINOPHEN 500 MG TAB PO PRN (12:33)
[2023-06-24] MEDS ORDERED: ACETAMINOPHEN 500 MG TAB PO ONE (18:30)
[2023-06-24] MEDS: HYDROmorphone HCL 2 MG TAB PO SCH (19:33)
[2023-06-24] MEDS ORDERED: HEPARIN SOD 5,000 UNIT/0.5 ML VIAL SQ ONE (21:00)
[2023-06-25] MEDS: HYDROmorphone INJ 0.5 MG/0.5 ML SYR IV PRN (02:20)
[2023-06-25 08:15] VITALS: TEMP 97.7; O2SAT 96
[2023-06-25] MEDS: POLYETHYLENE (MIRALAX) 17 GM PACK PO SCH (08:48)
[2023-06-25] MEDS: MAGNESIUM OXIDE 400 MG TAB PO SCH (08:48)
[2023-06-25] MEDS: ONDANSETRON INJ 2 MG/ML 2 ML VIAL IV PRN (08:49)
[2023-06-25] MEDS: LIDOCAINE 5% 1 PATCH TD SCH (08:49)
[2023-06-25] MEDS ORDERED: FAMOTIDINE 20 MG TAB PO ONE (09:07)
[2023-06-25] MEDS ORDERED: ACETAMINOPHEN 500 MG TAB PO ONE (11:00)
--- NOTE | 2023-06-25 11:14 | Discharge Summary ---
Discharge Summary Date of Service June 25, 2023 Notes For Next Care Provider Pt admitted 2/ worsened abdominal pain due to known liver mass and malignant ascites. Her pain was managed while hospitalized. She received paracentesis on 06/16 with 4.8 L removed in 06/20 with 3.9 L removed. She is being discharged today & will go to [facility] to have an abdominal Pleurx tube placement with IR for symptom management. After that she will return home with hospice arrangements comfort measures. Hospital stay complicated by acute on chronic hyponatremia, NICOLE in setting of nora mitten Toradol and Lasix use which has since improved and hyperkalemia. Medication Changes From Visit Dilaudid 2 mg at bedtime as needed for pain. You may utilize Tylenol 500 mg every 6 hours as needed for pain, do not exceed greater than 2000 mg of Tylenol a day. Your last dose of Tylenol was prior to departure at 11 AM. You received 1000 mg of Tylenol. Discontinued medications Lasix, potassium and oxycodone Admission HPI Per Admitting Provider 72-year-old female with PMH of prediabetes, COVID, liver mass suggestive of metastatic adenocarcinoma, unknown primary currently not receiving treatment, recurrent ascites requiring weekly paracenteses last paracentesis couple of days ago as per patient but fluid in the abdomen is filling up fast. She is having severe abdominal pain 8 / 10 in severity radiating to back which prompted her to come to the ER. She is also following with [facility] palliative care. There was a discussion of hospice care. Patient states her son is going to discuss with hospice on Friday. Palliative care also recommended Pleurx catheter prior to hospice care. Patient's now thinking about it. Was nauseous but no vomiting. On and off diarrhea. No chest pain. No shortness of breath. No headaches. No fevers. No cough. Appetite is poor. Walks with walker. Currently hemodynamically stable Admission Exam Per Admitting Provider General- Not in distress Head- atraumatic Eyes- PERRL. ENT- oropharynx clear Neck- supple, no JVD. Lungs- clear to auscultation , no wheezing or crackles. Heart- regular rhythm; no murmur, no gallop. Abdomen- normal bowel sounds, soft, periumbilical tenderness , distended Extremities- lower extremity edema present. no erythema seen. Neuro- alert, oriented x 3; PERRL no facial palsy; no dysarthria;non focal. Skin- warm & dry Principal Dx & Hospital Course #1 = Principal Diagnosis (1) Abdominal pain: (2) Liver mass: (3) Metastatic adenocarcinoma: (4) Unspecified severe protein-calorie malnutrition: Plan 72-year-old female with PMH of prediabetes, COVID, liver mass suggestive of metastatic adenocarcinoma, unknown primary currently not receiving treatment, recurrent ascites requiring weekly paracenteses, last paracentesis couple of days prior to admission but fluid in the abdomen began filling up fast. She was having severe abdominal pain / in severity radiating to back which prompted her to come to the ER. It is felt pain likely from liver mass with stretching of capsule and complicated by ascites. Pain was controlled while hospitalized. She had strong preference against narcotic medications. Initially symptoms managed with Toradol but this was discontinued secondary to NICOLE. She was willi ng to trial oral Dilaudid at bedtime to provide symptom relief and proper rest which improved her symptoms. She will be discharged along this as well as as needed Tylenol. While hospitalized she did require 06/16 with 4.8L removed and again on 06/20 with additional 3.9 L removed. She is being discharged to exam without IR for a permanent Pleurx abdominal cath placement for further supportive care and symptom management. Her hospital course was further complicated by acute kidney injury secondary to concrement use of Lasix and Toradol. Once discontinued creatinine improved and down trended and was 1.44- day prior to discharge. She also had acute on chronic hyponatremia with serum sodium stabilizing around 128. She was seen and evaluated nephrology for NICOLE and hyponatremia. Nephrology okay with sodium levels greater than 125. Her Lasix was discontinued going forward as her fluid management will be done through Pleurx cath. She will follow-up as outpatient with hospice services as well as hematology oncology Dr. Dangelo. On day of discharge she was in good spirits with a slightly anxious for upcoming procedure. She was requesting Tylenol 1 hour prior to departure to help with pain while traveling. She has not ate or drank anything this morning and preparation for procedure. She currently denies any chest pain, shortness of breath, dizziness or lightheadedness. Her vital signs remained stable and a discharge with a blood pressure 101/53. Patient's care was coordinated with daughter and discharging nurse. Pt was seen and examined in collaboration with Dr. Del Castillo, please see addendum. Pt reevaluated at 1215 due to nurse reporting patient sustained a fall in bathroom. She was trying to put pants on when she fell over and hit her left shoulder. She has small abrasion to superior aspect of left shoulder. She has full range of motion to left shoulder and denies any pain. She did not lose consciousness, hit her head and denies any dizziness or lightheadedness. Her vital signs are stable with BP 107/61 and pulse 89. BMP reviewed at bedside with family and sodium 128, BUN 72 creatinine 1.50. She appears dry and slightly dehydrated to me. She is currently on a 1500 mL fluid restriction and she is not meeting that with her oral intake. Encourage patient and family at bedside to push hydration for the next 2 to 3 days. Also recommend [id number]-whugvfu electrolyte drinks like Pedialyte or body armor. They agree and will comply. A dry dressing was placed over her small abrasion to her left shoulder. Encourage family to use [id number] antibiotic ointment once daily. Discharge Exam Gen: WD/WN, F, thin, NAD, A&O x3 HEENT: Normocephalic, atraumatic, conjunctivae moist, sclerae anicteric, mucous membranes moist. Lung: Clear to Auscultation bilaterally, no wheezes/rales/rhonchi Heart: Regular rate, regular rhythm, no murmurs, rubs, or gallops Abdomen: Soft, NT, Distended +BS x 4 Extremities: No edema Skin: Warm, no rash, negative turgor. Updated Medication List Medication Instructions Recorded Confirmed Type magnesium oxide 250 mg PO DAILY 06/04/23 06/15/23 History hydromorphone 2 mg tablet 2 mg PO DAILY@1999 PRN Cancer pain 06/24/23 Rx (Dilaudid) #10 tabs polyethylene glycol 3350 17 gram 17 g PO DAILY #14 ea 06/24/23 Rx oral powder packet (Miralax) Hospital Stay Data Consultations 06/15/23 08:00 Consult Nephrology Routine 06/15/23 11:51 Consult Palliative Care Routine 06/23/23 09:16 Consult Nephrology Routine Diagnostic Imagining Performed Current Inpatient Medications Acetaminophen (Acetaminophen 500 Mg Tab) 1,000 mg PO Q8H PRN PRN Reason: Pain or Fever Stop: 07/21/23 20:45 Last Admin: 06/24/23 12:33 Dose: 1,000 mg Hydromorphone HCl (Hydromorphone Inj 0.5 Mg/0.5 Ml Syr) 0.5 mg IV Q3H PRN PRN Reason: Severe Pain (Scale 7, 8, 9,10) Stop: 06/29/23 05:40 Last Admin: 06/25/23 02:20 Dose: 0.5 mg Hydromorphone HCl (Hydromorphone Hcl 2 Mg Tab) 2 mg PO DAILY@2000 [facility] Stop: 07/07/23 19:59 Last Admin: 06/24/23 19:33 Dose: 2 mg Promethazine HCl 6.25 mg/ (Sodium Chloride) 50.25 mls @ 201 mls/hr IV Q6H PRN PRN Reason: Nausea And Vomiting Stop: 07/22/23 00:37 Last Infusion: 06/22/23 01:28 Dose: Infused Lidocaine (Lidocaine 5% 1 Patch) 1 patch TD QAM [facility] Stop: 07/23/23 10:14 Last Admin: 06/25/23 08:49 Dose: 1 patch Magnesium Oxide (Magnesium Oxide 400 Mg Tab) 200 mg PO DAILY [facility] Stop: 07/15/23 08:59 Last Admin: 06/25/23 08:48 Dose: 200 mg Melatonin (Melatonin 3 Mg Tab) 3 mg PO HS PRN PRN Reason: Sleep Stop: 07/22/23 11:48 Last Admin: 06/24/23 22:16 Dose: 3 mg Methocarbamol (Methocarbamol 500 Mg Tablet) 500 mg PO TID PRN PRN Reason: back pain/muscle spasms Stop: 07/22/23 14:32 Last Admin: 06/23/23 15:16 Dose: 500 mg Miscellaneous (Remove Lidoderm Patch) 1 each N/A DAILY@2100 [facility] Stop: 07/23/23 20:59 Last Admin: 06/24/23 19:34 Dose: 1 each Ondansetron HCl (Ondansetron Inj 2 Mg/Ml 2 Ml Vial) 4 mg IV Q6H PRN PRN Reason: Nausea Stop: 07/15/23 05:40 Last Admin: 06/25/23 08:49 Dose: 4 mg Polyethylene Glycol (Polyethylene (Miralax) 17 Gm Pack) 17 gm PO DAILY ENA Stop: 07/19/23 09:14 Last Admin: 06/25/23 08:48 Dose: Not Given Trazodone HCl (Trazodone Hcl 50 Mg Tab) 50 mg PO HS PRN PRN Reason: insomnia Stop: 07/22/23 20:59 Pending Results Patient Have Any Pending Studies at Discharge: No Discharge Instructions Given to Patient (Per Discharging Provider) MEDICATION CHANGES: Dilaudid 2 mg at bedtime as needed for pain. You may utilize Tylenol 500 mg every 6 hours as needed for pain, do not exceed greater than 2000 mg of Tylenol a day. Your last dose of Tylenol was prior to departure at 11 AM. You received 1000 mg of Tylenol. Discontinued medications Lasix, potassium and oxycodone RECOMMENDATIONS FOR FOLLOW-UP: Please follow-up with your primary care provider as scheduled. When your procedure is completed and you return home please contact your hospice agency for evaluation. Your hospice agency and primary care provider will be the team managing your medications after discharge from hospital. You may utilize [id number]-[id number] lidocaine patches, 4% once daily as needed for pain. This can be picked up from a local pharmacy. Continue taking all other medications as prescribed. Due to taking pain medication she may need a daily stool softener to help promote daily bowel movements. While in the hospital he received MiraLAX 17 g daily. OTHER INSTRUCTIONS: Seek medical attention if you have: * temperature above 101 * chest pain or trouble breathing * abdominal pain, nausea, vomiting * diarrhea, dark stools or bloody stools * any unanswered questions or concerns Call 911 if symptoms are severe. Please take good care of yourself. It has been a pleasure taking care of you. Please take care of yourself. If you have any questions regarding your recent hospitalization please contact [facility] and request [facility] @ [phone]. Radha Godwin PA-C Total Time Total Time Spent Total Time Spent (In Minutes): 45 minutes
[2023-06-25 11:36] LABS: Calcium 8.1 mg/dl (8.6-10.3); Potassium 5.1 mmol/L (3.5-5.1)
[2023-06-25 11:41] VITALS: BP 107/61; PULSE 58
[2023-06-25 11:41] LABS: Creatinine Clr Calc Pharmacy 29.3 ml/min; Est GFR (African American) 39.9 ml/min; Est GFR (Non-African American) 34.4 ml/min
== END 2023-06-25 12:57 | disposition hospice, home (50) | DRG 435 ==
LOC: ED 00:24 → 3N 04:35 → SUATTDRO 04:35 → 3N 05:03